=== PATIENT | male | born 1955 | race Caucasian/White ===

== ENCOUNTER 2018-02-06 19:58 | Observation (INO) ==
[2018-02-06] MEDS ORDERED: 0.9 % Sodium Chloride 1,000 ML IVC ONE (20:22)
[2018-02-06 21:10] LABS: Basophils # 0.1 K/mcL (0.0-0.2); Basophils % 0.5 %; Eosinophils # 0.2 K/mcL (0.0-0.6); Eosinophils % 1.3 %; Hematocrit 39.3 % (37.5-50.1); Hemoglobin 12.8 g/dL (12.9-16.9); Immature Granulocytes % 0.6 % (0-4); Lymphocytes # 3.3 K/mcL (0.6-4.6); Lymphocytes % 22.9 %; Mean Corpuscular HGB Conc 32.6 g/dL (31.6-35.5); Mean Corpuscular Hemoglobin 29.4 pg (28.0-33.3); Mean Corpuscular Volume 90.3 fL (83.0-100.0); Mean Platelet Volume 9.1 fL (9.4-12.4); Monocytes # 0.8 K/mcL (0.0-1.3); Monocytes % 5.5 %; Neutrophils # 9.8 K/mcL (1.6-8.9); Platelet Count 684 K/mcL (140-400); Red Blood Count 4.35 M/mcL (4.19-5.50); Red Cell Distribution Width 16.4 % (11.5-14.5); Segmented Neutrophils % 69.2 %
--- NOTE | 2018-02-06 21:23 | Emergency Department Note ---
Disposition Clinical Impression: Generalized weakness Pneumonia Qualifiers: Pneumonia type: due to unspecified organism Laterality: unspecified laterality Lung location: unspecified part of lung Qualified Code(s): J18.9 - Pneumonia, unspecified organism Disposition: Admitted As Inpatient Condition: Fair Time of Disposition: 12:04 Weakness HPI - General Chief complaint: ED Weakness Stated complaint: weakness Time Seen by Provider: 02/06/18 20:21 Source: patient Mode of arrival: ambulatory Limitations: no limitations Nursing Notes Reviewed: Yes Vital Signs Reviewed: Yes - History of Present Illness HPI Narrative: Patient is a 62-year-old male who presents to [facility] ED with a chief complaint of generalized weakness. Patient was recently admitted and had a stroke. He had significant deficits including not being able to use his lower extremities. Apparently, patient was supposed to go to rehabilitation but refused and wanted to go home. They ended up releasing him home. His family states they cannot take care of him at home. He has been bedbound ever since he has gone home. Home health so they cannot do anything with either. states she finally convinced him to come back to the hospital. Pt Subjective Complaint: generalized weakness/fatigue Onset (ago): hour(s) Duration: constant Location: LLE, RLE Migration: none Pain Severity: severe Pain Scale: 8 Improves with: none Worsens with: none Associated symptoms: Denies: chest pain, dysuria, headaches, nausea/vomiting, shortness of breath - Related Data Home Medications Medication Instructions Recorded Confirmed Amitriptyline [Elavil] 75 mg PO HS 01/25/18 02/06/18 Aspirin Enteric Coated [Aspirin EC] 81 mg PO DAILY 01/25/18 02/06/18 Buprenorphine HCl/Naloxone HCl 1.5 each SL DAILY 01/25/18 02/06/18 [Suboxone 8 mg-2 mg Sl Film] Gabapentin [Neurontin] 800 mg PO TID 01/25/18 02/06/18 Glycopyrrolate/Formoterol Fum 1 puff IH DAILY 01/25/18 02/06/18 [Bevespi Aerosphere Inhaler] Metformin HCl [Glucophage] 1,000 mg PO BID 01/25/18 02/06/18 Tizanidine HCl 4 mg PO TID 01/25/18 02/06/18 Previous Rx's Medication Instructions Recorded Doxycycline 100 mg PO BID #28 capsule 01/31/18 Allergies Allergy/AdvReac Type Severity Reaction Status Date / Time No Known Allergies Allergy Verified 02/06/18 21:47 All systems ED: reviewed and negative except as stated. Past Medical History - Past Medical History Attestation: Yes The following information was validated with the patient. Source: patient Medical history: Reports: COPD, diabetes, hyperlipidemia, hypertension Surgical history: Reports: orthopedic, other Psychiatric history: Reports: no psych history - Social History Smoking Status: Current every day smoker Smokeless Tobacco Status: No Alcohol use: Reports: heavy Drug use: Reports: opiates, methamphetamine, other Physical Exam - General Limitations: no limitations General appearance: alert, in no apparent distress - Head Head exam: atraumatic, normocephalic, normal inspection - Eye Eye exam: Present: normal appearance, PERRL, EOMI - ENT ENT exam: normal exam, normal oropharynx, mucous membranes moist - Neck Neck exam: Present: normal inspection, full ROM, trachea midline - Chest Chest inspection: Present: normal inspection, symmetric chest wall rise - Respiratory Respiratory exam: Present: normal lung sounds bilaterally - Cardiovascular Cardiovascular exam: Present: regular rate, normal rhythm, normal heart sounds - Abdominal Exam Abdominal exam: Present: soft, Non-Tender. Absent: tenderness, distention, guarding, rebound, rigidity - Extremities Exam Extremities exam: Present: normal inspection, full ROM. Absent: tenderness, pedal edema - Back Exam Back exam: Present: normal inspection, full ROM. Absent: tenderness - Neurological Exam Neurological exam: Present: alert, oriented X3 - Psychiatric Psychiatric exam: Present: normal affect, normal mood - Skin Skin exam: Present: warm, dry, intact, normal color Course Course Narrative: Patient seen and examined. Generalized weakness especially in the bilateral lower extremities. He has muscular strength on exam of 1 out of 5. Patient was recently admitted for CVA and was told he would need rehabilitation. However he wanted to go home so they discharged him home. Family has not been able to care of him. He will need placement. Basic lab work and CT of the head ordered to evaluate for any worsening strokes. - Reevaluation(s) Reevaluation #1: Patient does have a leukocytosis of 14. His x-ray shows signs of a possible pneumonia. We will go ahead and cover with a dose of Levaquin. Lab work, CT scan otherwise unremarkable. Patient admitted to the hospitalists for generalized weakness and placement. Time: 12:02 Vital Signs Temperature 97.4 F L 02/06/18 20:00 Pulse Rate 111 02/06/18 20:00 Respiratory Rate 18 02/06/18 20:00 Blood Pressure 114/70 02/06/18 20:00 O2 Sat by Pulse Oximetry 97 02/06/18 20:00 Temperature 98.9 F 02/07/18 03:56 Pulse Rate 99 02/07/18 03:56 Respiratory Rate 16 02/07/18 03:56 Blood Pressure 129/81 02/07/18 03:56 O2 Sat by Pulse Oximetry 92 02/07/18 03:56 Oxygen Delivery Oxygen Delivery Room Air Weakness - Medical Records Medical records reviewed: Yes I reviewed the patient's medical records. - Lab Data Lab results reviewed: Yes I reviewed the patient's lab results. Result diagrams: 02/07/18 02:20 02/07/18 02:20 Lab Results 02/06/18 02/06/18 02/06/18 Range/Units 20:19 20:56 20:56 WBC 14.2 H (4.3-11.1) K/mcL RBC 4.35 (4.19-5.50) M/mcL Hgb 12.8 L (12.9-16.9) g/dL Hct 39.3 (37.5-50.1) % MCV 90.3 (83.0-100.0) fL MCH 29.4 (28.0-33.3) pg MCHC 32.6 (31.6-35.5) g/dL RDW 16.4 H (11.5-14.5) % Plt Count 684 H (140-400) K/mcL MPV 9.1 L (9.4-12.4) fL Immature Gran % 0.6 (0-4) % Seg Neutrophils % 69.2 % Lymphocytes % 22.9 % Monocytes % 5.5 % Eosinophils % 1.3 % Basophils % 0.5 % Neutrophils # 9.8 H (1.6-8.9) K/mcL Lymphocytes # 3.3 (0.6-4.6) K/mcL Monocytes # 0.8 (0.0-1.3) K/mcL Eosinophils # 0.2 (0.0-0.6) K/mcL Basophils # 0.1 (0.0-0.2) K/mcL Sodium 132 L (136-145) mEq/L Potassium 3.7 (3.5-5.1) mEq/L Chloride 99 (98-107) mEq/L Carbon Dioxide 25 (23-29) mEq/L BUN 11 (8-23) mg/dL Creatinine 0.69 L (0.70-1.30) mg/dL Est GFR ( Amer) > 60 (> 60) Est GFR (Non-Af Amer) > 60 (> 60) BUN/Creatinine Ratio 16 (6-26) Glucose 152 H (70-105) mg/dL POC Glucose 157 H (70-99) mg/dL Calculated Osmolality 276 L (280-300) Calcium 9.4 (8.6-10.3) mg/dL Total Bilirubin 0.7 (0.3-1.0) mg/dL AST 41 H (13-39) Units/L ALT 44 (7-52) Units/L Alkaline Phosphatase 219 H (34-104) Units/L Troponin I < 0.03 (< 0.04) ng/mL Serum Total Protein 8.0 (6.4-8.9) g/dL Albumin 2.8 L (3.5-5.7) g/dL Globulin 5.2 H (2.4-3.5) g/dL Albumin/Globulin Ratio 0.5 L (1.1-2.2) Urine Color (Yellow) Urine Clarity (Clear) Urine pH (5.0-8.0) pH Units Ur Specific [place] (1.010-1.025) Urine Protein (Neg-Trace) mg/dL Urine Glucose (UA) (Normal) mg/dL Urine Ketones (Negative) mg/dL Urine Blood (Negative) Urine Nitrite (Negative) Urine Bilirubin (Negative) Urine Urobilinogen (Normal) mg/dL Ur Leukocyte Esterase (Negative) Ur Culture Indicated? (NO) 02/06/18 Range/Units 21:27 WBC (4.3-11.1) K/mcL RBC (4.19-5.50) M/mcL Hgb (12.9-16.9) g/dL Hct (37.5-50.1) % MCV (83.0-100.0) fL MCH (28.0-33.3) pg MCHC (31.6-35.5) g/dL RDW (11.5-14.5) % Plt Count (140-400) K/mcL MPV (9.4-12.4) fL Immature Gran % (0-4) % Seg Neutrophils % % Lymphocytes % % Monocytes % % Eosinophils % % Basophils % % Neutrophils # (1.6-8.9) K/mcL Lymphocytes # (0.6-4.6) K/mcL Monocytes # (0.0-1.3) K/mcL Eosinophils # (0.0-0.6) K/mcL Basophils # (0.0-0.2) K/mcL Sodium (136-145) mEq/L Potassium (3.5-5.1) mEq/L Chloride (98-107) mEq/L Carbon Dioxide (23-29) mEq/L BUN (8-23) mg/dL Creatinine (0.70-1.30) mg/dL Est GFR ( Amer) (> 60) Est GFR (Non-Af Amer) (> 60) BUN/Creatinine Ratio (6-26) Glucose (70-105) mg/dL POC Glucose (70-99) mg/dL Calculated Osmolality (280-300) Calcium (8.6-10.3) mg/dL Total Bilirubin (0.3-1.0) mg/dL AST (13-39) Units/L ALT (7-52) Units/L Alkaline Phosphatase (34-104) Units/L Troponin I (< 0.04) ng/mL Serum Total Protein (6.4-8.9) g/dL Albumin (3.5-5.7) g/dL Globulin (2.4-3.5) g/dL Albumin/Globulin Ratio (1.1-2.2) Urine Color Dark Yellow (Yellow) Urine Clarity Clear (Clear) Urine pH 6.5 (5.0-8.0) pH Units Ur Specific [place] 1.015 (1.010-1.025) Urine Protein Negative (Neg-Trace) mg/dL Urine Glucose (UA) Normal (Normal) mg/dL Urine Ketones Negative (Negative) mg/dL Urine Blood Negative (Negative) Urine Nitrite Negative (Negative) Urine Bilirubin Small H (Negative) Urine Urobilinogen 2.0 H (Normal) mg/dL Ur Leukocyte Esterase Negative (Negative) Ur Culture Indicated? NO (NO) - Radiology Data Radiology results reviewed: Yes I reviewed the patient's radiology results. Chest X-Ray 02/06/18 20:22 IMPRESSION: Perihilar and ground-glass airspace opacification in the right lower lung zone. Pattern may represent developing pneumonia or asymmetric edema. D/ / Forrest Ford MD / Forrest Ford MD Interpreting Provider: Forrest Ford MD Head CT 02/06/18 20:23 IMPRESSION: No significant change the appearance of brain since the prior study 01/25/2018 showing low-attenuation within the left internal capsule extending into the left tello radiata, possibly representing acute to subacute infarct. No acute hemorrhage. Right maxillary sinus disease including fluid as above. Correlation for acute sinusitis is recommended. D/ / Eleonora Pryor Cha, MD / Eleonora Pryor Cha, MD Interpreting Provider: Eleonora Pryor Cha, MD Attestation Statement - Attestation Attestation: I examined this patient and my medical decision-making was reviewed with the Resident Physician. I agree with the documented findings, disposition and treatment plan as described except to the extent set forth below. Recent stroke , possible pneumonia, start Levaquin, patient be admitted for further evaluation of weakness in the setting of possible infectious etiology as well as recent stroke.
[2018-02-06 21:32] LABS: Troponin I < 0.03 ng/mL (< 0.04)
[2018-02-06 21:33] LABS: Alanine Aminotransferase 44 Units/L (7-52); Albumin 2.8 g/dL (3.5-5.7); Albumin/Globulin Ratio 0.5 (1.1-2.2); Alkaline Phosphatase 219 Units/L (34-104); Aspartate Amino Transferase 41 Units/L (13-39); BUN/Creatinine Ratio 16 (6-26); Bilirubin,Total 0.7 mg/dL (0.3-1.0); Blood Urea Nitrogen 11 mg/dL (8-23); Calcium 9.4 mg/dL (8.6-10.3); Carbon Dioxide 25 mEq/L (23-29); Chloride 99 mEq/L (98-107); Globulin 5.2 g/dL (2.4-3.5); Glucose 152 mg/dL (70-105); Osmolality,Calculated 276 (280-300); Potassium 3.7 mEq/L (3.5-5.1); Sodium 132 mEq/L (136-145); eGFR For African Americans > 60 (> 60); eGFR For Non-African Americans > 60 (> 60)
[2018-02-06] MEDS ORDERED: Levofloxacin 750 MG/150 ML 750 MG/150 ML BAG IVPB ONE (21:36)
[2018-02-06 21:37] LABS: Bilirubin,Urine Small (Negative); Blood,Urine Negative (Negative); Clarity,Urine Clear (Clear); Color,Urine Dark Yellow (Yellow); Glucose,Urine (UA) Normal (Normal); Ketones,Urine Negative (Negative); Leukocyte Esterase,Urine Negative (Negative); Nitrite,Urine Negative (Negative); PH,Urine 6.5 pH Units (5.0-8.0); Protein,Urine Negative (Neg-Trace); Specific Gravity,Urine 1.015 (1.010-1.025)
--- NOTE | 2018-02-07 01:51 | Internal Med History&Physical ---
Date of Encounter: 02/07/18 Internal Medicine - H&P: HPI History of present illness: Mr. Rizzo is a 62 year old male presents to [facility] ED with a chief complaint of generalized weakness. Patient was recently admitted and had a stroke. He had significant deficits including not being able to use his lower extremities. Apparently, patient was supposed to go to rehabilitation but refused and wanted to go home. They ended up releasing him home. His family states they cannot take care of him at home. He has been bedbound ever since he has gone home. Home health so they cannot do anything with either. states she finally convinced him to come back to the hospital. Past Med Surg Social Fam HX - Past Medical History Medical history: COPD, diabetes, hyperlipidemia, hypertension Additional medical history: chronic back pain Psychiatric history: no psych history - Past Surgical History Surgical History: orthopedic, other - Social History Smoking Status: Current every day smoker Smokeless Tobacco Status: No Alcohol use: heavy Drug use: opiates, methamphetamine, other Internal Medicine - H&P: Meds Amitriptyline [Elavil] 75 mg PO HS 01/25/18 [History] Aspirin Enteric Coated [Aspirin EC] 81 mg PO DAILY 01/25/18 [History] Buprenorphine HCl/Naloxone HCl [Suboxone 8 mg-2 mg Sl Film] 1.5 each SL DAILY [History] Gabapentin [Neurontin] 800 mg PO TID 01/25/18 [History] Glycopyrrolate/Formoterol Fum [Bevespi Aerosphere Inhaler] 1 puff IH DAILY 01/25 [History] Metformin HCl [Glucophage] 1,000 mg PO BID 01/25/18 [History] Tizanidine HCl 4 mg PO TID 01/25/18 [History] Doxycycline 100 mg PO BID #28 capsule 01/31/18 [Rx] 3 Allergy/AdvReac Type Severity Reaction Status Date / Time No Known Allergies Allergy Verified 02/06/18 21:47 All Systems PM: A 10-system review of systems was performed and is negative for pertinent findings except as documented above in the HPI. - Constitutional Vitals: Temp Pulse Resp BP Pulse Ox 99.0 F 113 16 126/85 90 02/07/18 00:56 02/07/18 00:56 02/07/18 00:56 02/07/18 00:56 02/07/18 00:56 Internal Med - H&P Results - Labs CBC & Chem 7: 02/07/18 02:20 02/07/18 02:20 - Assessment and plan (1) Debility Current Visit: No Status: Acute Assessment and plan: PT, PT consult (2) DVT prophylaxis Current Visit: No Status: Acute - Time Spent With Patient Total time spent is greater than 50% in coordination of care (as documented) at patient's floor/unit and/or counseling patient:
[2018-02-07] MEDS ORDERED: Naloxone 0.4 MG/ML INJ IVP PRN (02:04)
[2018-02-07 02:30] LABS: Basophils # 0.1 K/mcL (0.0-0.2); Basophils % 0.5 %; Eosinophils # 0.2 K/mcL (0.0-0.6); Eosinophils % 1.6 %; Hematocrit 36.1 % (37.5-50.1); Hemoglobin 11.7 g/dL (12.9-16.9); Immature Granulocytes % 0.5 % (0-4); Immature Platelets 1.5 % (1.1-6.1); Lymphocytes # 3.2 K/mcL (0.6-4.6); Mean Corpuscular HGB Conc 32.4 g/dL (31.6-35.5); Mean Corpuscular Hemoglobin 28.6 pg (28.0-33.3); Mean Corpuscular Volume 88.3 fL (83.0-100.0); Mean Platelet Volume 8.9 fL (9.4-12.4); Monocytes # 0.7 K/mcL (0.0-1.3); Monocytes % 6.7 %; Neutrophils # 6.8 K/mcL (1.6-8.9); Platelet Count 738 K/mcL (140-400); Red Blood Count 4.09 M/mcL (4.19-5.50); Red Cell Distribution Width 16.3 % (11.5-14.5); Segmented Neutrophils % 61.7 %
[2018-02-07 02:46] LABS: INR 1.3; Prothrombin Time 13.6 Seconds (9.4-12.1)
[2018-02-07 02:48] LABS: Activated Partial Thrombo Time 36.1 Seconds (26.0-36.0)
[2018-02-07 02:54] LABS: Alanine Aminotransferase 37 Units/L (7-52); Albumin 2.6 g/dL (3.5-5.7); Albumin/Globulin Ratio 0.6 (1.1-2.2); Alkaline Phosphatase 188 Units/L (34-104); Aspartate Amino Transferase 37 Units/L (13-39); BUN/Creatinine Ratio 15 (6-26); Bilirubin,Total 0.8 mg/dL (0.3-1.0); Blood Urea Nitrogen 9 mg/dL (8-23); Carbon Dioxide 24 mEq/L (23-29); Chloride 103 mEq/L (98-107); Chol/HDL Ratio 5.2 (0-4.9); Cholesterol 99 mg/dL (< 200); Globulin 4.7 g/dL (2.4-3.5); Glucose 115 mg/dL (70-105); HDL Cholesterol 19 mg/dL (40-59); LDL Cholesterol,Calculated 63 mg/dL (0-99); Magnesium 1.6 mg/dL (1.6-2.6); Osmolality,Calculated 276 (280-300); Phosphorous 3.8 mg/dL (2.7-4.5); Potassium 3.6 mEq/L (3.5-5.1); Sodium 133 mEq/L (136-145); Total Protein 7.3 g/dL (6.4-8.9); Triglycerides 83 mg/dL (< 150); eGFR For African Americans > 60 (> 60); eGFR For Non-African Americans > 60 (> 60)
[2018-02-07] MEDS ORDERED: *HR* HYDROcodone/Acet 5/325 mg TABLET PO PRN (03:03)
[2018-02-07 06:30] LABS: Bilirubin,Urine Negative (Negative); Blood,Urine Small (Negative); Clarity,Urine Clear (Clear); Color,Urine Yellow (Yellow); Glucose,Urine (UA) Normal (Normal); Ketones,Urine Negative (Negative); Leukocyte Esterase,Urine Trace (Negative); Nitrite,Urine Negative (Negative); Protein,Urine Trace mg/dL (Neg-Trace); Specific Gravity,Urine 1.016 (1.010-1.025); Urobilinogen,Urine Normal (Normal)
[2018-02-07 06:33] LABS: Bacteria,Urine None Seen per hpf (None-Few); Hyaline Casts,Urine None Seen per lpf (None-Few); Squamous Epithelial Cell,Urine Many per lpf (None-Few)
[2018-02-07] MEDS: Gabapentin 400 MG CAPSULE PO SCH ×3 (08:49→20:48)
[2018-02-07] MEDS: tiZANidine 4 MG TABLET PO SCH ×3 (08:49→20:39)
[2018-02-07] MEDS: Doxycycline 100 MG CAPSULE PO SCH ×2 (08:49→20:39)
[2018-02-07] MEDS: Aspirin Enteric Coated 81 MG Tablet PO SCH (08:49)
[2018-02-07] MEDS: *HR* Metformin 500 MG TABLET PO SCH ×2 (08:50→16:50)
[2018-02-07] MEDS ORDERED: *HR* Metformin 500 MG TABLET PO SCH (09:00)
[2018-02-07] MEDS ORDERED: Suboxone 8 Mg-2 Mg SL SL SCH (09:00)
[2018-02-07] MEDS ORDERED: GLYCOPYRROLATE IH SCH (09:00)
[2018-02-07] MEDS ORDERED: FORMOTEROL IH SCH (09:00)
--- NOTE | 2018-02-07 11:11 | Internal Med Progress Note ---
Date of Encounter: 02/07/18 Time of Encounter: 11:10 - Assessment and plan (1) DVT prophylaxis Current Visit: Yes Status: Acute Assessment and plan: SQ heparin (2) Debility Current Visit: Yes Status: Acute Assessment and plan: PT, OT consult (3) History of MRSA infection Current Visit: Yes Status: Acute Assessment and plan: continue doxycycline po (4) COPD (chronic obstructive pulmonary disease) Current Visit: Yes Status: Chronic Assessment and plan: Not in exacerbation Duoneb prn Qualifiers: COPD type: unspecified COPD Qualified Code(s): J44.9 - Chronic obstructive pulmonary disease, unspecified (5) Diabetes mellitus Current Visit: Yes Status: Chronic Assessment and plan: A1C 6.4 % 01/2018 Continue Metformin Continue sliding scale FS ACHS ADA diet Qualifiers: Diabetes mellitus type: type 2 Diabetes mellitus custodial insulin use: without custodial use Diabetes mellitus complication status: with unspecified complications Qualified Code(s): E11.8 - Type 2 diabetes mellitus with unspecified complications (6) Tobacco abuse Current Visit: Yes Status: Chronic Assessment and plan: encourage cessation NRT prn (7) Urinary retention Current Visit: Yes Status: Acute Assessment and plan: Continue Redmond Attempt voiding trial prior to discharge - Time Spent With Patient Total time spent is greater than 50% in coordination of care (as documented) at patient's floor/unit and/or counseling patient: - Subjective Interval history: Patient seen and examined at bedside He is physically deconditioned and family cannot take care of him at home Awaiting PTOT eval He seems to have had urinary retention as patient reports he was unable to pee at home and had a Redmond placed in the ER He denies any new complains - Constitutional Vitals: Temp Pulse Resp BP Pulse Ox 98.2 F 87 18 132/79 97 02/07/18 07:30 02/07/18 07:30 02/07/18 07:30 02/07/18 07:30 02/07/18 07:30 General appearance: Present: disheveled, A&O X 3, no acute distress - Head Head exam: Present: atraumatic, normocephalic - Eye Eye exam: Present: PERRL, conjuntiva pink, sclera anicteric Pupils: Present: PERRL - Neck Neck exam general surgery: Present: supple, trachea midline. Absent: lymphadenopathy - Respiratory Respiratory exam: Present: CTAB. Absent: accessory muscle use, rales, rhonchi, wheezes - Cardiovascular Cardiovascular exam: Present: RRR, +S1, +S2. Absent: diastolic murmur, gallop, rubs, systolic murmur - GI/Abdominal GI/Abdominal exam: Present: normal bowel sounds, soft, no peritoneal signs. Absent: distended, tenderness - Additional comments: Redmond draining clear urine - Extremities Exam Extremities exam: Present: warm, radial pulses palpable and symmetrical. Absent : calf tenderness, cyanotic, pedal edema - Neurological Exam Neurological exam: Present: alert, CN II-XII intact, oriented X3, no focal deficits. Absent: pronater drift, facial droop, speech deficit - Skin Skin exam: Present: dry, intact Internal Medicine: Result - Labs CBC & Chem 7: 02/07/18 02:20 02/07/18 02:20 Labs: Short CBC 02/07/18 Range/Units 02:20 WBC 11.0 (4.3-11.1) K/mcL Hgb 11.7 L (12.9-16.9) g/dL Hct 36.1 L (37.5-50.1) % Plt Count 738 H (140-400) K/mcL Neutrophils # 6.8 (1.6-8.9) K/mcL BMP 02/07/18 02:20 Sodium 133 L Potassium 3.6 Chloride 103 Carbon Dioxide 24 BUN 9 Creatinine 0.60 L Glucose 115 H Calcium 9.0 Liver Function 02/07/18 Range/Units 02:20 Total Bilirubin 0.8 (0.3-1.0) mg/dL AST 37 (13-39) Units/L ALT 37 (7-52) Units/L Alkaline Phosphatase 188 H (34-104) Units/L Albumin 2.6 L (3.5-5.7) g/dL Urine 02/07/18 Range/Units 06:25 Urine Color Yellow (Yellow) Urine Clarity Clear (Clear) Urine pH 6.0 (5.0-8.0) pH Units Ur Specific [place] 1.016 (1.010-1.025) Urine Protein Trace (Neg-Trace) mg/dL Urine Glucose (UA) Normal (Normal) mg/dL - ABG Interpretation ABG results: PT/INR, D-dimer PT 13.6 Seconds (9.4-12.1) H 02/07/18 02:20 Consult Discharge Plan - Plan Referrals: Gerard Srivastava MD [Primary Care Provider] -
[2018-02-07] MEDS ORDERED: D5% in Water 1,000 ML IVC PRN (14:54)
[2018-02-07] MEDS ORDERED: *HR* Dextrose 50 % in Water (Syg) 50 ML SYRINGE IVP PRN (14:54)
[2018-02-07] MEDS ORDERED: Dextrose Gel 15 GM/37.5 ML TUBE PO PRN ×2 (14:54)
[2018-02-07] MEDS ORDERED: Albuterol 2.5 MG/3 ML NEBULIZER IH SCH (16:00)
--- NOTE | 2018-02-07 16:24 | Electrocardiograph Report ---
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
[2018-02-07] MEDS: Insulin LISPRO 300 UNITS/3 ML VIAL SQ SCH ×2 (16:45→20:55)
[2018-02-07] MEDS: *HR* Heparin 5,000 UNIT/ML VIAL SQ SCH (16:51)
[2018-02-08] MEDS: Acetaminophen 325 MG TABLET PO PRN (00:44)
[2018-02-08] MEDS: *HR* Heparin 5,000 UNIT/ML VIAL SQ SCH ×2 (05:33→17:15)
[2018-02-08] MEDS ORDERED: *HR* Buprenorphine HCl 8 MG TAB.SUBL SL SCH (09:00)
[2018-02-08] MEDS: Insulin LISPRO 300 UNITS/3 ML VIAL SQ SCH ×4 (09:10→20:37)
[2018-02-08] MEDS: Doxycycline 100 MG CAPSULE PO SCH ×2 (09:10→20:57)
[2018-02-08] MEDS: Aspirin Enteric Coated 81 MG Tablet PO SCH (09:10)
[2018-02-08] MEDS: *HR* Metformin 500 MG TABLET PO SCH ×2 (09:11→17:15)
[2018-02-08] MEDS: Gabapentin 400 MG CAPSULE PO SCH ×3 (09:11→20:57)
[2018-02-08] MEDS: tiZANidine 4 MG TABLET PO SCH ×3 (09:11→20:57)
[2018-02-08] MEDS ORDERED: Melatonin 3 MG TABLET PO PRN (10:44)
[2018-02-08] MEDS: Tiotropium 18 MCG inhalation IH SCH (10:49)
--- NOTE | 2018-02-08 11:44 | Internal Med Progress Note ---
Date of Encounter: 02/08/18 Time of Encounter: 11:00 - Assessment and plan (1) DVT prophylaxis Current Visit: Yes Status: Acute Assessment and plan: SQ heparin (2) Debility Current Visit: Yes Status: Chronic Assessment and plan: PT, OT consulted, for SNF/ECF (3) History of MRSA infection Current Visit: Yes Status: Acute Assessment and plan: continue doxycycline po (4) COPD (chronic obstructive pulmonary disease) Current Visit: Yes Status: Chronic Assessment and plan: Not in exacerbation Duoneb prn Qualifiers: COPD type: unspecified COPD Qualified Code(s): J44.9 - Chronic obstructive pulmonary disease, unspecified (5) Diabetes mellitus Current Visit: Yes Status: Chronic Assessment and plan: A1C 6.4 % 01/2018 Continue Metformin Continue sliding scale FS ACHS ADA diet Qualifiers: Diabetes mellitus type: type 2 Diabetes mellitus 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 insulin 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: without 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 Diabetes mellitus complication status: with unspecified complications Qualified Code(s): E11.8 - Type 2 diabetes mellitus with unspecified complications (6) Tobacco abuse Current Visit: Yes Status: Chronic Assessment and plan: encourage cessation NRT prn (7) Urinary retention Current Visit: Yes Status: Acute Assessment and plan: Continue Redmond Attempt voiding trial prior to discharge - Time Spent With Patient Total time spent is greater than 50% in coordination of care (as documented) at patient's floor/unit and/or counseling patient: - Subjective Interval history: Patient seen and examined at bedside He is physically deconditioned and family cannot take care of him at home PTOT scout noted-for swing bed, SW aware He seems to have had urinary retention as patient reports he was unable to pee at home and had a Redmond placed in the ER He denies any new complains - Constitutional Vitals: Temp Pulse Resp BP Pulse Ox 98.4 F 88 19 109/71 93 02/08/18 11:25 02/08/18 11:25 02/08/18 11:25 02/08/18 11:25 02/08/18 11:25 General appearance: Present: disheveled, A&O X 3, no acute distress - Head Head exam: Present: atraumatic, normocephalic - Eye Eye exam: Present: PERRL, conjuntiva pink, sclera anicteric Pupils: Present: PERRL - Neck Neck exam general surgery: Present: supple, trachea midline. Absent: lymphadenopathy - Respiratory Respiratory exam: Present: CTAB. Absent: accessory muscle use, rales, rhonchi, wheezes - Cardiovascular Cardiovascular exam: Present: RRR, +S1, +S2. Absent: diastolic murmur, gallop, rubs, systolic murmur - GI/Abdominal GI/Abdominal exam: Present: normal bowel sounds, soft, no peritoneal signs. Absent: distended, tenderness - Extremities Exam Extremities exam: Present: warm, radial pulses palpable and symmetrical. Absent : calf tenderness, cyanotic, pedal edema - Neurological Exam Neurological exam: Present: alert, CN II-XII intact, oriented X3, no focal deficits. Absent: pronater drift, facial droop, speech deficit - Skin Skin exam: Present: dry, intact Internal Medicine: Result - Labs CBC & Chem 7: 02/07/18 02:20 02/07/18 02:20 - ABG Interpretation ABG results: PT/INR, D-dimer PT 13.6 Seconds (9.4-12.1) H 02/07/18 02:20 Consult Discharge Plan - Plan Referrals: Gerard Srivastava MD [Primary Care Provider] - (patient will go to swing bed...)
[2018-02-09] MEDS: *HR* Heparin 5,000 UNIT/ML VIAL SQ SCH ×2 (06:11→18:05)
[2018-02-09] MEDS: Tiotropium 18 MCG inhalation IH SCH (07:46)
[2018-02-09] MEDS: *HR* Metformin 500 MG TABLET PO SCH ×2 (09:52→18:04)
[2018-02-09] MEDS: Doxycycline 100 MG CAPSULE PO SCH ×2 (09:52→21:05)
[2018-02-09] MEDS: tiZANidine 4 MG TABLET PO SCH ×3 (09:52→21:05)
[2018-02-09] MEDS: Aspirin Enteric Coated 81 MG Tablet PO SCH (09:52)
[2018-02-09] MEDS: Gabapentin 400 MG CAPSULE PO SCH ×3 (09:52→21:05)
[2018-02-09] MEDS: *HR* Buprenorphine HCl 8 MG TAB.SUBL SL SCH (09:52)
[2018-02-09] MEDS: Insulin LISPRO 300 UNITS/3 ML VIAL SQ SCH ×4 (09:53→23:23)
--- NOTE | 2018-02-09 11:33 | Discharge Summary ---
- NOTES TO OUTPATIENT PROVIDER Notes to Outpatient Provider: No change in home medications. Continue doxycycline for 3 more days. Ensure follow up with pain physician as out- patient Date of Encounter: 02/10/18 Time of Encounter: 11:27 - Discharge Diagnosis (1) DVT prophylaxis Priority: Primary Status: Acute (2) Debility Priority: Primary Status: Chronic (3) History of MRSA infection Priority: Primary Status: Acute (4) COPD (chronic obstructive pulmonary disease) Priority: Secondary Status: Chronic Qualifiers: COPD type: unspecified COPD Qualified Code(s): J44.9 - Chronic obstructive pulmonary disease, unspecified (5) Diabetes mellitus Priority: Secondary Status: Chronic Qualifiers: Diabetes mellitus type: type 2 Diabetes mellitus detention insulin use: without termite renewal inspector use Diabetes mellitus complication status: with unspecified complications Qualified Code(s): E11.8 - Type 2 diabetes mellitus with unspecified complications (6) Tobacco abuse Priority: Secondary Status: Chronic (7) Urinary retention Priority: Primary Status: Acute Hospital course: Mr. Rizzo is a 62 year old male who presented to the ED with a chief complaint of generalized weakness. Patient was recently admitted and had a stroke with LUE weakness. He had significant deficits including not being able to use his lower extremities. Apparently, patient was supposed to go to rehabilitation but refused and wanted to go home. They ended up releasing him home. His family stated they cannot take care of him at home. He has been bedbound ever since he has gone home. Home health so they cannot do anything with either. states she finally convinced him to come back to the hospital. He has since being on observation awaiting placement he is hemodynamically stable he has a hx of MRSA PNA and is on Doxycycline, today is day 9 He is to complete at least 10 days of same He also has a hx of opiate dependence and is on suboxone, which has been substituted with subutex in-patient He developed urinary retention with catheterizaion in the ER, Catheter removed to attempt voiding trial Follow up with PCP Discharge discussed with: patient, family, nurse, social work Time spent discussing smoking cessation with patient: 3 to 10 minutes - Time Spent with Patient Total time spent providing and/or coordinating discharge services: Greater than 30 minutes - Discharge Medications Home Medications: Amitriptyline [Elavil] 75 mg PO HS 01/25/18 [History] Aspirin Enteric Coated [Aspirin EC] 81 mg PO DAILY 01/25/18 [History] Buprenorphine HCl/Naloxone HCl [Suboxone 8 mg-2 mg Sl Film] 1.5 each SL DAILY [History] Gabapentin [Neurontin] 800 mg PO TID 01/25/18 [History] Glycopyrrolate/Formoterol Fum [Bevespi Aerosphere Inhaler] 1 puff IH DAILY 01/25 [History] Metformin HCl [Glucophage] 1,000 mg PO BID 01/25/18 [History] Tizanidine HCl 4 mg PO TID 01/25/18 [History] Doxycycline 100 mg PO BID #28 capsule 01/31/18 [Rx] Allergies/Adverse Reactions: 3 Allergy/AdvReac Type Severity Reaction Status Date / Time No Known Allergies Allergy Verified 02/06/18 21:47 Date of admission: 02/06/18 23:47 Primary care physician: Gerard Srivastava, Consults: 02/07/18 06:38 Consult to Occupational Therapy [CONS] Routine Comment: Evaluate, develop and implement POC Reason for Consult: weekness Does patient have active BEDREST order?: No Is patient medically & hemodynamically stable?: No Patient assessed for mobility or mobilized this visit?: No Consult to Physical Therapy [CONS] Routine Comment: Evaluate, develop and implement POC Reason for Consult: weekness Does patient have active BEDREST order?: No Is patient medically & hemodynamically stable?: No Patient assessed for mobility or mobilized this visit?: No 02/08/18 07:55 Consult to Python Django Developer [CONS] Routine Reason for SW Consult: NEEDS SWING BED Discharging clinician: Jose M Fulton Anticipated date of discharge: 02/09/18 - Constitutional Vitals: Temp Pulse Resp BP Pulse Ox 98.6 F 83 16 115/77 96 02/09/18 07:51 02/09/18 07:51 02/09/18 07:51 02/09/18 07:51 02/09/18 07:51 General appearance: Present: cachectic, disheveled, A&O X 3, no acute distress - Head Head exam: Present: atraumatic, normocephalic - Eye Eye exam: Present: PERRL, conjuntiva pink, sclera anicteric Pupils: Present: PERRL - Neck Neck exam general surgery: Present: supple, trachea midline. Absent: lymphadenopathy - Respiratory Respiratory exam: Present: CTAB. Absent: accessory muscle use, rales, rhonchi, wheezes - Cardiovascular Cardiovascular exam: Present: RRR, +S1, +S2. Absent: diastolic murmur, gallop, rubs, systolic murmur - GI/Abdominal GI/Abdominal exam: Present: normal bowel sounds, soft, no peritoneal signs. Absent: distended, tenderness - Extremities Exam Extremities exam: Present: warm, radial pulses palpable and symmetrical. Absent : calf tenderness, cyanotic, pedal edema - Neurological Exam Neurological exam: Present: alert, CN II-XII intact, motor sensory deficit (LUE weakness), oriented X3. Absent: strengths equal and symetr throughout, pronater drift, facial droop, speech deficit - Skin Skin exam: Present: dry, intact - Patient Status Disposition: Transfer SNF Condition: Fair - Discharge Instructions Follow Up With: Gerard Srivastava MD [Primary Care Provider] - (patient will go to swing bed...) - Diet and Activity Activity: resume usual activities as tolerated Diet: low salt diet
--- NOTE | 2018-02-09 14:30 | Physician Discharge Referral ---
ExtendedCare Referral Info Transfer To: SNF Provider in Charge: Bandar Fulton Provider in Charge after Transfer: PCP Institutional Level of Care: Skilled - Diagnosis (1) DVT prophylaxis Priority: Primary Status: Acute (2) Debility Priority: Secondary Status: Chronic (3) History of MRSA infection Priority: Primary Status: Acute (4) COPD (chronic obstructive pulmonary disease) Priority: Secondary Status: Chronic (5) Diabetes mellitus Priority: Secondary Status: Chronic (6) Tobacco abuse Priority: Secondary Status: Chronic (7) Urinary retention Priority: Primary Status: Acute Prognosis: Fair Aware of Diagnosis: Patient, Family Aware of Prognosis: Patient, Family - Transfer Medications Home Medications: Amitriptyline [Elavil] 75 mg PO HS 01/25/18 [History] Aspirin Enteric Coated [Aspirin EC] 81 mg PO DAILY 01/25/18 [History] Buprenorphine HCl/Naloxone HCl [Suboxone 8 mg-2 mg Sl Film] 1.5 each SL DAILY [History] Gabapentin [Neurontin] 800 mg PO TID 01/25/18 [History] Glycopyrrolate/Formoterol Fum [Bevespi Aerosphere Inhaler] 1 puff IH DAILY 01/25 [History] Metformin HCl [Glucophage] 1,000 mg PO BID 01/25/18 [History] Tizanidine HCl 4 mg PO TID 01/25/18 [History] Doxycycline 100 mg PO BID #28 capsule 01/31/18 [Rx] Allergies/Adverse Reactions: 3 Allergy/AdvReac Type Severity Reaction Status Date / Time No Known Allergies Allergy Verified 02/06/18 21:47 - Respiratory Orders Smoking Cessation: Smoking cessation has been advised. For more information, call the [place] Tobacco Quit Line at 7-091-NDJN-NOW. - Advance Directives Code Status: Full Code - Mobility Orders Ambulate - Rehabiliation Orders Rehab Orders: Evaluation for Physical Therapy - Diet Orders No Concentrated Sweets, Cardiac CERTIFICATION: I certify that the transfer of the above named patient to an Extended Care Facility is necessary for the continuing treatment of the diagnosis listed. The above information is true and accurate reflection of patient's current condition. Confidential - Redisclosure prohibited without a patient's written consent.
[2018-02-09] MEDS: *HR* Buprenorphine HCl 2 MG SUBLINGUAL TABLET SL SCH (21:05)
[2018-02-10] MEDS: *HR* Heparin 5,000 UNIT/ML VIAL SQ SCH ×2 (06:07→17:01)
[2018-02-10] MEDS: *HR* Metformin 500 MG TABLET PO SCH ×2 (08:32→16:59)
[2018-02-10] MEDS: Doxycycline 100 MG CAPSULE PO SCH ×2 (08:32→20:28)
[2018-02-10] MEDS: Gabapentin 400 MG CAPSULE PO SCH ×3 (08:32→20:28)
[2018-02-10] MEDS: Aspirin Enteric Coated 81 MG Tablet PO SCH (08:33)
[2018-02-10] MEDS: tiZANidine 4 MG TABLET PO SCH ×3 (08:33→20:28)
[2018-02-10] MEDS: *HR* Buprenorphine HCl 8 MG TAB.SUBL SL SCH (08:35)
[2018-02-10] MEDS: Insulin LISPRO 300 UNITS/3 ML VIAL SQ SCH ×4 (08:35→20:43)
--- NOTE | 2018-02-10 10:48 | Internal Med Progress Note ---
Date of Encounter: 02/10/18 Time of Encounter: 10:48 - Assessment and plan (1) DVT prophylaxis Current Visit: Yes Status: Acute Assessment and plan: SQ heparin (2) Debility Current Visit: Yes Status: Chronic Assessment and plan: PT, OT consulted, for SNF/ECF (3) History of MRSA infection Current Visit: Yes Status: Acute Assessment and plan: continue doxycycline po, complete 10 days of therapy (4) COPD (chronic obstructive pulmonary disease) Current Visit: Yes Status: Chronic Assessment and plan: Not in exacerbation Duoneb prn Qualifiers: COPD type: unspecified COPD Qualified Code(s): J44.9 - Chronic obstructive pulmonary disease, unspecified (5) Diabetes mellitus Current Visit: Yes Status: Chronic Assessment and plan: A1C 6.4 % 01/2018 Continue Metformin Continue sliding scale FS ACHS ADA diet Qualifiers: Diabetes mellitus type: type 2 Diabetes mellitus longshore equipment operator insulin use: without longshore equipment operator use Diabetes mellitus complication status: with unspecified complications Qualified Code(s): E11.8 - Type 2 diabetes mellitus with unspecified complications (6) Tobacco abuse Current Visit: Yes Status: Chronic Assessment and plan: encourage cessation NRT prn (7) Urinary retention Current Visit: Yes Status: Acute Assessment and plan: continue durham, urology evaluation out-patient - Time Spent With Patient Total time spent is greater than 50% in coordination of care (as documented) at patient's floor/unit and/or counseling patient: - Subjective Interval history: Patient seen and examined at bedside He is physically deconditioned and family cannot take care of him at home PTOT eval noted-for swing bed, [facility] [place] catheter was removed 02/09 but had to be replaced due to urinary retention - Constitutional Vitals: Temp Pulse Resp BP Pulse Ox 98.2 F 90 16 112/76 92 02/10/18 07:10 02/10/18 07:10 02/10/18 07:10 02/10/18 07:10 02/10/18 07:10 General appearance: Present: cachectic, disheveled, A&O X 3, no acute distress - Head Head exam: Present: atraumatic, normocephalic - Eye Eye exam: Present: PERRL, conjuntiva pink, sclera anicteric Pupils: Present: PERRL - Neck Neck exam general surgery: Present: supple, trachea midline. Absent: lymphadenopathy - Respiratory Respiratory exam: Present: CTAB. Absent: accessory muscle use, rales, rhonchi, wheezes - Cardiovascular Cardiovascular exam: Present: RRR, +S1, +S2. Absent: diastolic murmur, gallop, rubs, systolic murmur - GI/Abdominal GI/Abdominal exam: Present: normal bowel sounds, soft, no peritoneal signs. Absent: distended, tenderness - Extremities Exam Extremities exam: Present: warm, radial pulses palpable and symmetrical. Absent : calf tenderness, cyanotic, pedal edema - Neurological Exam Neurological exam: Present: alert, CN II-XII intact, oriented X3, no focal deficits. Absent: pronater drift, facial droop, speech deficit - Skin Skin exam: Present: dry, intact Internal Medicine: Result - Labs CBC & Chem 7: 02/07/18 02:20 02/07/18 02:20 - ABG Interpretation ABG results: PT/INR, D-dimer PT 13.6 Seconds (9.4-12.1) H 02/07/18 02:20 Consult Discharge Plan - Plan Referrals: Gerard Srivastava MD [Primary Care Provider] - (patient will go to swing bed...)
[2018-02-10] MEDS: Tiotropium 18 MCG inhalation IH SCH (11:03)
[2018-02-10] MEDS: *HR* Buprenorphine HCl 2 MG SUBLINGUAL TABLET SL SCH (20:28)
[2018-02-11] MEDS: *HR* Heparin 5,000 UNIT/ML VIAL SQ SCH ×2 (06:16→16:45)
[2018-02-11] MEDS: *HR* Buprenorphine HCl 8 MG TAB.SUBL SL SCH (07:56)
[2018-02-11] MEDS: Gabapentin 400 MG CAPSULE PO SCH ×3 (07:56→21:05)
[2018-02-11] MEDS: Insulin LISPRO 300 UNITS/3 ML VIAL SQ SCH ×4 (07:56→21:05)
[2018-02-11] MEDS: *HR* Metformin 500 MG TABLET PO SCH ×2 (07:57→16:44)
[2018-02-11] MEDS: tiZANidine 4 MG TABLET PO SCH ×3 (07:57→21:05)
[2018-02-11] MEDS: Aspirin Enteric Coated 81 MG Tablet PO SCH (07:57)
--- NOTE | 2018-02-11 09:25 | Internal Med Progress Note ---
Date of Encounter: 02/11/18 Time of Encounter: 09:25 - Assessment and plan (1) DVT prophylaxis Current Visit: Yes Status: Acute Assessment and plan: SQ heparin (2) Debility Current Visit: Yes Status: Chronic Assessment and plan: PT, OT consulted, for SNF/ECF, fall precautions (3) History of MRSA infection Current Visit: Yes Status: Acute Assessment and plan: continue doxycycline po, completed 10 days of therapy (4) COPD (chronic obstructive pulmonary disease) Current Visit: Yes Status: Chronic Assessment and plan: Not in exacerbation Duoneb prn Qualifiers: COPD type: unspecified COPD Qualified Code(s): J44.9 - Chronic obstructive pulmonary disease, unspecified (5) Diabetes mellitus Current Visit: Yes Status: Chronic Assessment and plan: A1C 6.4 % 01/2018 Continue Metformin Continue sliding scale FS ACHS ADA diet Qualifiers: Diabetes mellitus type: type 2 Diabetes mellitus nursing home insulin use: without commercial sales specialist use Diabetes mellitus complication status: with unspecified complications Qualified Code(s): E11.8 - Type 2 diabetes mellitus with unspecified complications (6) Tobacco abuse Current Visit: Yes Status: Chronic Assessment and plan: encourage cessation NRT prn (7) Urinary retention Current Visit: Yes Status: Acute Assessment and plan: continue durham, urology evaluation out-patient (8) Seborrhea Current Visit: Yes Status: Acute Assessment and plan: ketononazole cream daily - Time Spent With Patient Total time spent is greater than 50% in coordination of care (as documented) at patient's floor/unit and/or counseling patient: - Subjective Interval history: Patient seen and examined at bedside He is physically deconditioned and family cannot take care of him at home PTOT scout noted-for swing bed, [facility] [place] catheter was removed 02/09 but had to be replaced due to urinary retention He has no new complains - Constitutional Vitals: Temp Pulse Resp BP Pulse Ox 98.4 F 98 17 122/80 93 02/11/18 07:40 02/11/18 07:40 02/11/18 07:40 02/11/18 07:40 02/11/18 07:40 General appearance: Present: cachectic, disheveled, A&O X 3, no acute distress - Head Head exam: Present: normal inspection Additional comments: seborrheic dermatitis on face - Eye Eye exam: Present: PERRL - Neck Neck exam general surgery: Present: supple, trachea midline. Absent: lymphadenopathy - Respiratory Respiratory exam: Present: CTAB. Absent: accessory muscle use, rales, rhonchi, wheezes - Cardiovascular Cardiovascular exam: Present: RRR, +S1, +S2. Absent: diastolic murmur, gallop, rubs, systolic murmur - GI/Abdominal GI/Abdominal exam: Present: normal bowel sounds, soft, no peritoneal signs. Absent: distended, tenderness - Extremities Exam Extremities exam: Present: warm, radial pulses palpable and symmetrical. Absent : calf tenderness, cyanotic, pedal edema - Neurological Exam Neurological exam: Present: alert, motor sensory deficit (LUE wekaness), oriented X3. Absent: pronater drift, facial droop, speech deficit - Skin Skin exam: Present: dry, intact Internal Medicine: Result - Labs CBC & Chem 7: 02/07/18 02:20 02/07/18 02:20 - ABG Interpretation ABG results: PT/INR, D-dimer PT 13.6 Seconds (9.4-12.1) H 02/07/18 02:20 Consult Discharge Plan - Plan Referrals: Gerard Srivastava MD [Primary Care Provider] - (patient will go to swing bed...)
[2018-02-11] MEDS: Ketoconazole 2% CRM 15 GM TUBE TP SCH (11:33)
[2018-02-11] MEDS: Tiotropium 18 MCG inhalation IH SCH (11:44)
[2018-02-11] MEDS: *HR* Buprenorphine HCl 2 MG SUBLINGUAL TABLET SL SCH (21:05)
[2018-02-12] MEDS: *HR* Heparin 5,000 UNIT/ML VIAL SQ SCH ×2 (05:21→17:07)
[2018-02-12 07:11] LABS: BUN/Creatinine Ratio 26 (6-26); Blood Urea Nitrogen 17 mg/dL (8-23); Calcium 10.3 mg/dL (8.6-10.3); Carbon Dioxide 21 mEq/L (23-29); Chloride 99 mEq/L (98-107); Glucose 157 mg/dL (70-105); Osmolality,Calculated 275 (280-300); Potassium 4.4 mEq/L (3.5-5.1); Sodium 130 mEq/L (136-145); eGFR For African Americans > 60 (> 60); eGFR For Non-African Americans > 60 (> 60)
[2018-02-12 07:22] LABS: Basophils % 0.4 %; Eosinophils # 0.9 K/mcL (0.0-0.6); Eosinophils % 8.8 %; Hemoglobin 12.9 g/dL (12.9-16.9); Immature Granulocytes % 0.6 % (0-4); Lymphocytes # 3.1 K/mcL (0.6-4.6); Lymphocytes % 28.8 %; Mean Corpuscular HGB Conc 33.1 g/dL (31.6-35.5); Mean Corpuscular Hemoglobin 29.3 pg (28.0-33.3); Mean Corpuscular Volume 88.6 fL (83.0-100.0); Mean Platelet Volume 9.2 fL (9.4-12.4); Neutrophils # 5.6 K/mcL (1.6-8.9); Platelet Count 537 K/mcL (140-400); Red Cell Distribution Width 15.2 % (11.5-14.5); Segmented Neutrophils % 52.4 %
[2018-02-12] MEDS: Tiotropium 18 MCG inhalation IH SCH (07:52)
[2018-02-12] MEDS: *HR* Metformin 500 MG TABLET PO SCH ×2 (08:48→16:33)
[2018-02-12] MEDS: Aspirin Enteric Coated 81 MG Tablet PO SCH (08:48)
[2018-02-12] MEDS: tiZANidine 4 MG TABLET PO SCH ×3 (08:48→21:01)
[2018-02-12] MEDS: Insulin LISPRO 300 UNITS/3 ML VIAL SQ SCH ×4 (08:49→21:01)
[2018-02-12] MEDS: *HR* Buprenorphine HCl 8 MG TAB.SUBL SL SCH (08:49)
[2018-02-12] MEDS: Gabapentin 400 MG CAPSULE PO SCH ×3 (08:52→21:01)
[2018-02-12] MEDS: Ketoconazole 2% CRM 15 GM TUBE TP SCH (08:54)
--- NOTE | 2018-02-12 12:18 | Internal Med Progress Note ---
Date of Encounter: 02/12/18 Time of Encounter: 12:18 - Assessment and plan (1) DVT prophylaxis Current Visit: Yes Status: Acute Assessment and plan: SQ heparin (2) Debility Current Visit: Yes Status: Chronic Assessment and plan: PT, OT consulted, for SNF/ECF, fall precautions (3) History of MRSA infection Current Visit: Yes Status: Acute Assessment and plan: continue doxycycline po, completed 10 days of therapy (4) COPD (chronic obstructive pulmonary disease) Current Visit: Yes Status: Chronic Assessment and plan: Not in exacerbation Duoneb prn Qualifiers: COPD type: unspecified COPD Qualified Code(s): J44.9 - Chronic obstructive pulmonary disease, unspecified (5) Diabetes mellitus Current Visit: Yes Status: Chronic Assessment and plan: A1C 6.4 % 01/2018 Continue Metformin Continue sliding scale FS ACHS ADA diet Qualifiers: Diabetes mellitus type: type 2 Diabetes mellitus mcfp insulin use: without watermelon inspector use Diabetes mellitus complication status: with unspecified complications Qualified Code(s): E11.8 - Type 2 diabetes mellitus with unspecified complications (6) Tobacco abuse Current Visit: Yes Status: Chronic Assessment and plan: encourage cessation NRT prn (7) Urinary retention Current Visit: Yes Status: Acute Assessment and plan: continue durham, urology evaluation out-patient (8) Seborrhea Current Visit: Yes Status: Acute Assessment and plan: ketononazole cream daily - Time Spent With Patient Total time spent is greater than 50% in coordination of care (as documented) at patient's floor/unit and/or counseling patient: - Subjective Interval history: Patient seen and examined at bedside No acute events Awaiting placement - Constitutional Vitals: Temp Pulse Resp BP Pulse Ox 97.9 F 84 16 104/69 93 02/12/18 07:38 02/12/18 07:38 02/12/18 07:53 02/12/18 07:38 02/12/18 07:53 General appearance: Present: cachectic, disheveled, A&O X 3, no acute distress - Head Head exam: Present: atraumatic, normocephalic - Eye Eye exam: Present: PERRL, conjuntiva pink, sclera anicteric Pupils: Present: PERRL Additional comments: seborrhea - Neck Neck exam general surgery: Present: supple, trachea midline. Absent: lymphadenopathy - Respiratory Respiratory exam: Present: CTAB. Absent: accessory muscle use, rales, rhonchi, wheezes - Cardiovascular Cardiovascular exam: Present: RRR, +S1, +S2. Absent: diastolic murmur, gallop, rubs, systolic murmur - GI/Abdominal GI/Abdominal exam: Present: normal bowel sounds, soft, no peritoneal signs. Absent: distended, tenderness - Extremities Exam Extremities exam: Present: warm, radial pulses palpable and symmetrical. Absent : calf tenderness, cyanotic, pedal edema - Neurological Exam Neurological exam: Present: alert, CN II-XII intact, oriented X3, no focal deficits. Absent: pronater drift, facial droop, speech deficit - Skin Skin exam: Present: dry, intact Internal Medicine: Result - Labs CBC & Chem 7: 02/12/18 07:06 02/12/18 06:25 Labs: Short CBC 02/12/18 Range/Units 07:06 WBC 10.7 (4.3-11.1) K/mcL Hgb 12.9 (12.9-16.9) g/dL Hct 39.0 (37.5-50.1) % Plt Count 537 H (140-400) K/mcL Neutrophils # 5.6 (1.6-8.9) K/mcL BMP 02/12/18 06:25 Sodium 130 L Potassium 4.4 Chloride 99 Carbon Dioxide 21 L BUN 17 Creatinine 0.65 L Glucose 157 H Calcium 10.3 - ABG Interpretation ABG results: PT/INR, D-dimer PT 13.6 Seconds (9.4-12.1) H 02/07/18 02:20 Consult Discharge Plan - Plan Referrals: Gerard Srivastava MD [Primary Care Provider] - (patient will go to swing bed...)
[2018-02-12] MEDS: *HR* Buprenorphine HCl 2 MG SUBLINGUAL TABLET SL SCH (21:02)
[2018-02-12] MEDS: Acetaminophen 325 MG TABLET PO PRN (21:31)
[2018-02-13] MEDS: *HR* Heparin 5,000 UNIT/ML VIAL SQ SCH ×2 (05:36→17:09)
[2018-02-13] MEDS: Insulin LISPRO 300 UNITS/3 ML VIAL SQ SCH ×4 (08:20→21:40)
[2018-02-13] MEDS: Ketoconazole 2% CRM 15 GM TUBE TP SCH (08:25)
[2018-02-13] MEDS: tiZANidine 4 MG TABLET PO SCH ×3 (08:26→21:42)
[2018-02-13] MEDS: Aspirin Enteric Coated 81 MG Tablet PO SCH (08:26)
[2018-02-13] MEDS: *HR* Metformin 500 MG TABLET PO SCH ×2 (08:26→17:09)
[2018-02-13] MEDS: *HR* Buprenorphine HCl 8 MG TAB.SUBL SL SCH (08:26)
[2018-02-13] MEDS: Gabapentin 400 MG CAPSULE PO SCH ×3 (08:26→21:42)
[2018-02-13] MEDS: Tiotropium 18 MCG inhalation IH SCH (10:11)
--- NOTE | 2018-02-13 11:03 | Internal Med Progress Note ---
Date of Encounter: 02/13/18 Time of Encounter: 11:03 - Assessment and plan (1) CVA (cerebral vascular accident) Current Visit: Yes Status: Acute Assessment and plan: Patient with acute versus subacute CVA post present on admission. Head CT on admission was for acute versus subacute infarct. Patient with left upper extremity residual weakness. Generalized deconditioning. On aspirin continue the same. Started on Lipitor. Echocardiogram done during admission in January 2018 unremarkable. Not repeated. Carotid imaging done recently unremarkable. Repeat head CT done today shows chronic microvascular changes without any acute infarcts. Qualifiers: CVA mechanism: unspecified Qualified Code(s): I63.9 - Cerebral infarction, unspecified (2) DVT prophylaxis Current Visit: Yes Status: Acute Assessment and plan: SQ heparin (3) Debility Current Visit: Yes Status: Chronic Assessment and plan: PT, OT consulted, for SNF/ECF, fall precautions (4) History of MRSA infection Current Visit: Yes Status: Acute Assessment and plan: Discontinued doxycycline po, patient has completed 10 days of therapy (5) COPD (chronic obstructive pulmonary disease) Current Visit: Yes Status: Chronic Assessment and plan: Not in exacerbation Duoneb prn Qualifiers: COPD type: unspecified COPD Qualified Code(s): J44.9 - Chronic obstructive pulmonary disease, unspecified (6) Diabetes mellitus Current Visit: Yes Status: Chronic Assessment and plan: A1C 6.4 % 01/2018 Continue Metformin Continue sliding scale FS ACHS ADA diet Qualifiers: Diabetes mellitus type: type 2 Diabetes mellitus 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 urology evaluation out-patient (9) Seborrhea Current Visit: Yes Status: Acute Assessment and plan: Continue ketoconazole. - Time Spent With Patient Total time spent is greater than 50% in coordination of care (as documented) at patient's floor/unit and/or counseling patient: - Subjective Interval history: Patient seen and examined at bedside No acute events Awaiting placement - Constitutional Vitals: Temp Pulse Resp BP Pulse Ox 97.9 F 87 18 102/70 91 02/13/18 07:05 02/13/18 07:05 02/13/18 10:13 02/13/18 07:05 02/13/18 10:13 General appearance: Present: cachectic, disheveled, A&O X 3, no acute distress - Head Head exam: Present: atraumatic, normocephalic - Eye Eye exam: Present: PERRL, conjuntiva pink, sclera anicteric Pupils: Present: PERRL - Neck Neck exam general surgery: Present: supple, trachea midline. Absent: lymphadenopathy - Respiratory Respiratory exam: Present: CTAB. Absent: accessory muscle use, rales, rhonchi, wheezes - Cardiovascular Cardiovascular exam: Present: RRR, +S1, +S2. Absent: diastolic murmur, gallop, rubs, systolic murmur - GI/Abdominal GI/Abdominal exam: Present: normal bowel sounds, soft, no peritoneal signs. Absent: distended, tenderness - Extremities Exam Extremities exam: Absent: pedal edema - Neurological Exam Neurological exam: Present: alert, motor sensory deficit (LUE weakness, power 1/ 5, RUE weakness, power at least 3/5), oriented X3 - Skin Skin exam: Present: dry, intact Internal Medicine: Result - Labs CBC & Chem 7: 02/12/18 07:06 02/12/18 06:25 - ABG Interpretation ABG results: PT/INR, D-dimer PT 13.6 Seconds (9.4-12.1) H 02/07/18 02:20 Consult Discharge Plan - Plan Referrals: Gerard Srivastava MD [Primary Care Provider] - (patient will go to swing bed...)
[2018-02-13] MEDS: *HR* Buprenorphine HCl 2 MG SUBLINGUAL TABLET SL SCH (21:42)
[2018-02-13 22:08] LABS: Amphetamine Screen,Urine Negative ng/mL (Cutoff=1000); Barbiturate Screen,Urine Negative ng/mL (Cutoff=200); Benzodiazepines Screen,Urine Negative ng/mL (Cutoff=200); Cannabinoid Screen,Urine Negative ng/mL (Cutoff = 50); Cocaine Screen,Urine Negative ng/mL (Cutoff= 300); Opiate Screen,Urine Negative ng/mL (Cutoff=300); Phencyclidine Screen,Urine Negative ng/mL (Cutoff=25)
[2018-02-14] MEDS: *HR* Heparin 5,000 UNIT/ML VIAL SQ SCH (06:03)
[2018-02-14] MEDS: Tiotropium 18 MCG inhalation IH SCH (07:55)
[2018-02-14] MEDS: Insulin LISPRO 300 UNITS/3 ML VIAL SQ SCH ×2 (08:02→11:26)
[2018-02-14] MEDS: *HR* Buprenorphine HCl 8 MG TAB.SUBL SL SCH (08:59)
[2018-02-14] MEDS: Aspirin Enteric Coated 81 MG Tablet PO SCH (09:00)
[2018-02-14] MEDS: Ketoconazole 2% CRM 15 GM TUBE TP SCH (09:00)
[2018-02-14] MEDS: *HR* Metformin 500 MG TABLET PO SCH (09:00)
[2018-02-14] MEDS: tiZANidine 4 MG TABLET PO SCH ×2 (09:00→15:27)
[2018-02-14] MEDS: Gabapentin 400 MG CAPSULE PO SCH ×2 (09:00→15:27)
[2018-02-14 11:03] VITALS: BP 97/65
--- NOTE | 2018-02-14 15:15 | Internal Med Progress Note ---
Date of Encounter: 02/14/18 Time of Encounter: 15:12 - Assessment and plan (1) CVA (cerebral vascular accident) Current Visit: Yes Status: Acute Assessment and plan: Acute vs. subacute CVA w/ L. residual weakness Generalized weakness and deconditioned Will need continued Rehabilitation PT/OT Repeat CT 02/13 w/ no significant changes from prior Stable for discharged to [facility] facility Discharged order and summary in place, same plan as before except for addition of bowel regiment Qualifiers: CVA mechanism: unspecified Qualified Code(s): I63.9 - Cerebral infarction, unspecified (2) Generalized weakness Current Visit: Yes Status: Acute Assessment and plan: Likely 2/2 CVA continue with PT/OT (3) Urinary retention Current Visit: Yes Status: Acute Assessment and plan: Urinary retention post CVA Had prior attempt of removal but needed to be re-inserted [place] in place now, can continue but will need Urology follow out post discharged as soon as possible Spoke with nurse to help arrange urology follow up (4) COPD (chronic obstructive pulmonary disease) Current Visit: Yes Status: Chronic Assessment and plan: Not SOB, duonebs PRN Qualifiers: COPD type: unspecified COPD Qualified Code(s): J44.9 - Chronic obstructive pulmonary disease, unspecified (5) Diabetes mellitus Current Visit: Yes Status: Chronic Assessment and plan: A1c 6.4% 01/2018 continue with metformin and ISS FS ACHS Diabetic diet Qualifiers: Diabetes mellitus type: type 2 Diabetes mellitus mcfp insulin use: without mcfp use Diabetes mellitus complication status: with unspecified complications Qualified Code(s): E11.8 - Type 2 diabetes mellitus with unspecified complications (6) Hyponatremia Current Visit: Yes Status: Chronic Assessment and plan: Hyponatremia throughout admission Current Na 130, asymptomatic Continue to monitor, will benefit from IVF (7) Thrombocytosis Current Visit: Yes Status: Chronic Assessment and plan: Thrombocytopenia improving from admission Elevated RDW and borderline MCV Likely due to Iron deficiency anemia Supplement with iron, monitor Platelets - Time Spent With Patient Total time spent is greater than 50% in coordination of care (as documented) at patient's floor/unit and/or counseling patient: Greater than 35 minutes - Subjective Interval history: Patient denies any new complaints today, reports feeling fine. No acute events overnight. However, nurse noted patient had not had a bowel movements in the past several days, patient denies any noticable abdominal discomfort or constipation. - Constitutional Vitals: Temp Pulse Resp BP Pulse Ox 99.2 F 92 16 97/65 95 02/14/18 11:02 02/14/18 11:02 02/14/18 11:02 02/14/18 11:02 02/14/18 11:02 General appearance: Present: cachectic, disheveled, A&O X 3, no acute distress Exam: General: Alert and oriented. Slow speech. Limited extremity movements. Skin: Normal color, no rash, no lesions. HEENT: EOMI, pupils equal, round and reactive. Cardiovascular: Regular rate, regular rythm. No murmurs appreciated. Lungs:Normal breath sounds, no wheezes or crackles. Abdomen:Soft, non-tender, no rigidity. Extremities:No deformity, no edema or tenderness, no joint swelling or clubbing. Neurological:Normal cognition, diffuse extremity weakness. LUE- 2/5, RUE- 3/5, b /l LE 0-1/5. Rest of the physical exam is non contributory Internal Medicine: Result - Labs CBC & Chem 7: 02/12/18 07:06 02/12/18 06:25 - ABG Interpretation ABG results: PT/INR, D-dimer PT 13.6 Seconds (9.4-12.1) H 02/07/18 02:20 - Impressions Impressions Head CT 02/13/18 14:52 IMPRESSION: 1. Stable CT scan of the brain with chronic small vessel ischemic disease. An MRI of the brain is suggested to evaluate for acute infarct. D/ / Obdulio Park MD / Obdulio Park MD Interpreting Provider: Obdulio Park MD Consult Discharge Plan - Plan Instructions: Diabetes Mellitus Type 2 in Adults (DC), Chronic Obstructive Pulmonary Disease (DC), Sepsis (DC), Pneumonia (DC) Referrals: Gerard Srivastava MD [Primary Care Provider] - (patient will go to swing bed...)
[2018-02-14] MEDS: Acetaminophen 325 MG TABLET PO PRN (17:33)
== END 2018-02-14 17:44 ==
LOC: EMEROO 19:58 → 2ANU 19:58 → SUATTDRO 23:47 → 2ANU 02-07 00:34
PROVIDERS: ADMIT Internal Medicine Nephrology; ATTEND Internal Medicine

== ENCOUNTER 2019-05-03 16:43 | Inpatient (IN) ==
[2019-05-03] MEDS ORDERED: 0.9 % Sodium Chloride 2,000 ML ONE (16:59)
[2019-05-03] MEDS: 0.9 % Sodium Chloride 1,000 ML IVC SCH ×2 (17:07→17:08)
[2019-05-03] MEDS ORDERED: Piperacillin/Tazobactam 3.375 GM in Water for inj. (sterile) 20 ML IVP ONE (17:08)
--- NOTE | 2019-05-03 17:22 | Emergency Department Note ---
Disposition Clinical Impression: Sepsis Qualifiers: Sepsis type: sepsis due to unspecified organism Sepsis acute organ dysfunction status: unspecified Qualified Code(s): A41.9 - Sepsis, unspecified organism Pneumonia Qualifiers: Pneumonia type: due to unspecified organism Laterality: bilateral Lung location: unspecified part of lung Qualified Code(s): J18.9 - Pneumonia, unspecified organism Altered mental status Qualifiers: Altered mental status type: unspecified Qualified Code(s): R41.82 - Altered mental status, unspecified UTI (urinary tract infection) Qualifiers: Urinary tract infection type: site unspecified Hematuria presence: without hematuria Qualified Code(s): N39.0 - Urinary tract infection, site not specified Disposition: Admitted As Inpatient Condition: Fair Time of Disposition: 19:00 General Adult HPI - General Stated complaint: ams Time Seen by Provider: 05/03/19 16:55 Source: family, EMS Mode of arrival: EMS Limitations: no limitations Nursing Notes Reviewed: Yes Vital Signs Reviewed: Yes - History of Present Illness HPI Narrative: Patient is a 63-year-old male with a past medical history including h ypertension, hyperlipidemia, COPD, diabetes mellitus type 2, cirrhosis of the liver on lactulose, presenting with chief complaint of altered mental status. states for the last couple of days, he has had increased productive cough. He does not wear oxygen at home and she states he gets frequent pneumonia. She states today, he was falling asleep frequently. He did have a temperature at home of 100.1 degrees Fahrenheit. She did not give him any medications. She has been giving him nebulizer treatments without much improvement in his cough. She also notes she has been having progressive shortness of breath. This afternoon, they were putting up Halloween decorations. She found him slumped over in a chair with a full can of beer spilling out. She states he did not have any other beers. He had 1 Suboxone as scheduled this morning. She was unable to wake him up and EMS was called. Patient arrived with decreased responsiveness and hypoxia. He was also significantly tachycardic. denies any unilateral weakness or numbness, abdominal pain, nausea or vomiting that he has been complaining. No recent diarrhea or antibiotic use. He denies chest pain. Pain Scale: 0 - Related Data Home Medications Medication Instructions Recorded Confirmed Gabapentin [Neurontin] 800 mg PO TID 01/25/18 05/03/19 Metformin HCl [Glucophage] 1,000 mg PO BIDWM 01/25/18 05/03/19 Albuterol Neb [Proventil Neb] 3 ml IH QID PRN 12/28/18 05/03/19 Amlodipine Besylate 5 mg PO DAILY 12/28/18 05/03/19 Atorvastatin [Lipitor] 40 mg PO HS 12/28/18 05/03/19 Cyclobenzaprine HCl 10 mg PO TID PRN 12/28/18 05/03/19 Fluticasone/Vilanterol [Breo 1 puff IH BID 12/28/18 05/03/19 Ellipta 200-25 Mcg INH] Lactulose [Enulose] 20 gm PO BID 12/28/18 05/03/19 Metoclopramide HCl 5 mg PO Q8H PRN 12/28/18 05/03/19 Tamsulosin HCl [Flomax] 0.4 mg PO DAILY 12/28/18 05/03/19 Buprenorphine HCl/Naloxone HCl 1.5 tab SL DAILY 05/03/19 05/03/19 [Buprenorphin-Naloxon 8-2 mg Sl] Trazodone HCl 50 mg PO HS PRN 05/03/19 05/03/19 Allergies Allergy/AdvReac Type Severity Reaction Status Date / Time No Known Allergies Allergy Verified 12/28/18 21:47 All systems ED: reviewed and negative except as stated. Review of Systems: As Per HPI Constitutional: Reports: fever. Denies: chills ENT ED: Reports: congestion Cardiovascular: Denies: chest pain, palpitations Respiratory: Reports: cough, dyspnea Gastrointestinal: Denies: abdominal pain, nausea, vomiting, diarrhea Genitourinary: Denies: dysuria, hematuria Neurological: Denies: headache, weakness Past Medical History - Past Medical History Attestation: Yes The following information was validated with the patient. Source: patient, old records reviewed, obtained from family Medical history: Reports: cirrhosis, COPD, CVA, diabetes, hyperlipidemia, hypertension Surgical history: Reports: orthopedic, other Psychiatric history: Reports: no psych history - Social History Smoking Status: Current every day smoker Smokeless Tobacco Status: No Alcohol use: Reports: heavy Drug use: Reports: opiates, methamphetamine, other Physical Exam - General Limitations: no limitations General appearance: appears intoxicated - Head Head exam: atraumatic, normocephalic - Eye Eye exam: Present: normal appearance, PERRL, EOMI. Absent: scleral icterus, conjunctival injection, nystagmus - ENT ENT exam: normal exam, normal oropharynx - Neck Neck exam: Present: normal inspection, trachea midline - Chest Chest inspection: Present: normal inspection, symmetric chest wall rise - Respiratory Respiratory exam: Present: other (Diminished breath sounds bilaterally with inspiratory and expiratory wheezing bilaterally, rhonchorous breath sounds on the right) - Cardiovascular Cardiovascular exam: Present: normal rhythm, tachycardia - Abdominal Exam Abdominal exam: Present: soft, Non-Tender, normal bowel sounds, other (Mild abdominal distention without any fluid wave, no guarding, rigidity) - Extremities Exam Extremities exam: Present: normal capillary refill. Absent: pedal edema, calf tenderness - Neurological Exam Neurological exam: Present: other (Patient does open eyes to name and will respond to some questions. He is responding to some commands.) - Skin Skin exam: Present: warm, dry, normal color. Absent: diaphoresis Course Vital Signs Temperature 102.2 F H 05/03/19 16:53 Pulse Rate 135 05/03/19 16:53 Respiratory Rate 26 05/03/19 16:53 Blood Pressure 116/77 05/03/19 16:53 O2 Sat by Pulse Oximetry 94 05/03/19 16:53 Temperature 100.8 F H 05/03/19 19:12 Pulse Rate 113 05/03/19 19:12 Respiratory Rate 19 05/03/19 19:15 Blood Pressure 101/76 05/03/19 19:12 O2 Sat by Pulse Oximetry 92 05/03/19 19:15 Oxygen Delivery Oxygen Delivery Oximizer Medical Decision Making - [facility] Narrative Medical decision making narrative: Patient is presenting with altered mental status. He does open his eyes to name and responds to commands. He does have increased cough and increased shortness of breath in the last 2 days. He had a temperature of 100.1 degrees Fahrenheit at home. at bedside states this is how he gets when he develops pneumonia. Most recent hospital admission was in December. We will obtain septic workup. Patient is placed on Vioxx the mask. Patient is febrile here with heart rate sinus tachycardia in the 130s. Chest x-ray will be obtained as he has significant expiratory wheezing and rhonchi on the right. Concern for pneumonia. IV Zosyn will be empirically given. He will also receive IV fluids. 18:32 Chest x-ray shows bibasilar airspace disease suspicious for pneumonia. Lactate normal, white blood count normal. Will add vancomycin to his antibiotic regimen. He will be receiving 2 L IV fluid bolus. Reassess the patient and he is much more alert and talkative. Wheezing is improved bilaterally. He also does have a urinary tract infection. He will be admitted for sepsis secondary to bilateral pneumonia and UTI. Heart rate improved to 117. 18:55 Discussed with admitted hospitalist, Dr. Leo, who accepts admission. Normal lactate. Patient does have leukocytosis of 16.2 - Medical Records Medical records reviewed: Yes I reviewed the patient's medical records. - Lab Data Lab results reviewed: Yes I reviewed the patient's lab results. Result diagrams: 05/03/19 18:41 05/03/19 17:13 Lab Results 05/03/19 05/03/19 05/03/19 Range/Units 17:13 17:13 17:26 WBC (4.3-11.1) K/mcL RBC (4.19-5.50) M/mcL Hgb (12.9-16.9) g/dL Hct (37.5-50.1) % MCV (83.0-100.0) fL MCH (28.0-33.3) pg MCHC (31.6-35.5) g/dL RDW (11.5-14.5) % Plt Count (140-400) K/mcL MPV (9.4-12.4) fL Immature Gran % (0-4) % Seg Neutrophils % % Lymphocytes % % Monocytes % % Eosinophils % % Basophils % % Neutrophils # (1.6-8.9) K/mcL Lymphocytes # (0.6-4.6) K/mcL Monocytes # (0.0-1.3) K/mcL Eosinophils # (0.0-0.6) K/mcL Basophils # (0.0-0.2) K/mcL PT 10.7 (9.4-12.1) Seconds INR 0.9 APTT 24.3 L (26.0-36.0) Seconds ABG pH 7.40 (7.32-7.45) pH Units ABG pCO2 45 (35-45) mmHg ABG pO2 107 H (85-104) mmHg ABG HCO3 28 H (21-27) mEq/L ABG Total CO2 29 H (20-26) mEq/L ABG O2 Saturation 98 (95-98) % ABG Base Excess 3 (-2 to 3) mEq/L O2 Delivery Device NRB Inspired O2 100.0 (1-15=lpm [id number]=%) Sodium 133 L (136-145) mEq/L Potassium 4.8 (3.5-5.1) mEq/L Chloride 100 (98-107) mEq/L Carbon Dioxide 25 (23-29) mEq/L BUN 13 (8-23) mg/dL Creatinine 0.79 (0.70-1.30) mg/dL Est GFR ( Amer) > 60 (> 60) Est GFR (Non-Af Amer) > 60 (> 60) BUN/Creatinine Ratio 16 (6-26) Glucose 111 H (70-105) mg/dL Calculated Osmolality 277 L (280-300) Lactic Acid (0.5-2.2) mmol/L Calcium 10.1 (8.6-10.3) mg/dL Phosphorus 2.9 (2.7-4.5) mg/dL Magnesium 1.5 L (1.6-2.6) mg/dL Total Bilirubin 0.6 (0.3-1.0) mg/dL Direct Bilirubin 0.1 (0.0-0.2) mg/dL Indirect Bilirubin 0.5 (0.0-1.2) mg/dL AST 19 (13-39) Units/L ALT 13 (7-52) Units/L Alkaline Phosphatase 94 (34-104) Units/L Ammonia (16-53) mcmol/L Troponin I < 0.03 (< 0.04) ng/mL Serum Total Protein 8.1 (6.4-8.9) g/dL Albumin 4.2 (3.5-5.7) g/dL Globulin 3.9 H (2.4-3.5) g/dL Albumin/Globulin Ratio 1.1 (1.1-2.2) Lipase 4 L (11-82) Units/L Urine Color (Yellow) Urine Clarity (Clear) Urine pH (5.0-8.0) pH Units Ur Specific Lena (1.010-1.025) Urine Protein (Neg-Trace) mg/dL Urine Glucose (UA) (Normal) mg/dL Urine Ketones (Negative) mg/dL Urine Blood (Negative) Urine Nitrite (Negative) Urine Bilirubin (Negative) Urine Urobilinogen (Normal) mg/dL Ur Leukocyte Esterase (Negative) Urine Microscopic RBC (0-3) per hpf Urine Microscopic WBC (0-3) per hpf Ur Squamous Epith Cells (None-Few) per lpf Urine Bacteria (None-Few) per hpf Hyaline Casts (None-Few) per lpf Ur Culture Indicated? (NO) Ethyl Alcohol < 10 (Less than 10) mg/dL 05/03/19 05/03/19 05/03/19 Range/Units 18:14 18:41 18:41 WBC 16.3 H (4.3-11.1) K/mcL RBC 4.27 (4.19-5.50) M/mcL Hgb 11.9 L (12.9-16.9) g/dL Hct 36.6 L (37.5-50.1) % MCV 85.7 (83.0-100.0) fL MCH 27.9 L (28.0-33.3) pg MCHC 32.5 (31.6-35.5) g/dL RDW 16.7 H (11.5-14.5) % Plt Count 357 (140-400) K/mcL MPV 9.3 L (9.4-12.4) fL Immature Gran % 0.4 (0-4) % Seg Neutrophils % 87.7 % Lymphocytes % 6.9 % Monocytes % 4.6 % Eosinophils % 0.2 % Basophils % 0.2 % Neutrophils # 14.3 H (1.6-8.9) K/mcL Lymphocytes # 1.1 (0.6-4.6) K/mcL Monocytes # 0.8 (0.0-1.3) K/mcL Eosinophils # 0.0 (0.0-0.6) K/mcL Basophils # 0.0 (0.0-0.2) K/mcL PT (9.4-12.1) Seconds INR APTT (26.0-36.0) Seconds ABG pH (7.32-7.45) pH Units ABG pCO2 (35-45) mmHg ABG pO2 (85-104) mmHg ABG HCO3 (21-27) mEq/L ABG Total CO2 (20-26) mEq/L ABG O2 Saturation (95-98) % ABG Base Excess (-2 to 3) mEq/L O2 Delivery Device Inspired O2 (1-15=lpm [id number]=%) Sodium (136-145) mEq/L Potassium (3.5-5.1) mEq/L Chloride (98-107) mEq/L Carbon Dioxide (23-29) mEq/L BUN (8-23) mg/dL Creatinine (0.70-1.30) mg/dL Est GFR ( Amer) (> 60) Est GFR (Non-Af Amer) (> 60) BUN/Creatinine Ratio (6-26) Glucose (70-105) mg/dL Calculated Osmolality (280-300) Lactic Acid 1.2 (0.5-2.2) mmol/L Calcium (8.6-10.3) mg/dL Phosphorus (2.7-4.5) mg/dL Magnesium (1.6-2.6) mg/dL Total Bilirubin (0.3-1.0) mg/dL Direct Bilirubin (0.0-0.2) mg/dL Indirect Bilirubin (0.0-1.2) mg/dL AST (13-39) Units/L ALT (7-52) Units/L Alkaline Phosphatase (34-104) Units/L Ammonia (16-53) mcmol/L Troponin I (< 0.04) ng/mL Serum Total Protein (6.4-8.9) g/dL Albumin (3.5-5.7) g/dL Globulin (2.4-3.5) g/dL Albumin/Globulin Ratio (1.1-2.2) Lipase (11-82) Units/L Urine Color Yellow (Yellow) Urine Clarity Clear (Clear) Urine pH 7.0 (5.0-8.0) pH Units Ur Specific Lena 1.014 (1.010-1.025) Urine Protein Negative (Neg-Trace) mg/dL Urine Glucose (UA) Normal (Normal) mg/dL Urine Ketones Negative (Negative) mg/dL Urine Blood Trace H (Negative) Urine Nitrite Positive A (Negative) Urine Bilirubin Negative (Negative) Urine Urobilinogen Normal (Normal) mg/dL Ur Leukocyte Esterase Large H (Negative) Urine Microscopic RBC 0-3 (0-3) per hpf Urine Microscopic WBC 50-100 H (0-3) per hpf Ur Squamous Epith Cells Few (None-Few) per lpf Urine Bacteria Few (None-Few) per hpf Hyaline Casts None Seen (None-Few) per lpf Ur Culture Indicated? YES A (NO) Ethyl Alcohol (Less than 10) mg/dL 05/03/19 Range/Units 18:41 WBC (4.3-11.1) K/mcL RBC (4.19-5.50) M/mcL Hgb (12.9-16.9) g/dL Hct (37.5-50.1) % MCV (83.0-100.0) fL MCH (28.0-33.3) pg MCHC (31.6-35.5) g/dL RDW (11.5-14.5) % Plt Count (140-400) K/mcL MPV (9.4-12.4) fL Immature Gran % (0-4) % Seg Neutrophils % % Lymphocytes % % Monocytes % % Eosinophils % % Basophils % % Neutrophils # (1.6-8.9) K/mcL Lymphocytes # (0.6-4.6) K/mcL Monocytes # (0.0-1.3) K/mcL Eosinophils # (0.0-0.6) K/mcL Basophils # (0.0-0.2) K/mcL PT (9.4-12.1) Seconds INR APTT (26.0-36.0) Seconds ABG pH (7.32-7.45) pH Units ABG pCO2 (35-45) mmHg ABG pO2 (85-104) mmHg ABG HCO3 (21-27) mEq/L ABG Total CO2 (20-26) mEq/L ABG O2 Saturation (95-98) % ABG Base Excess (-2 to 3) mEq/L O2 Delivery Device Inspired O2 (1-15=lpm [id number]=%) Sodium (136-145) mEq/L Potassium (3.5-5.1) mEq/L Chloride (98-107) mEq/L Carbon Dioxide (23-29) mEq/L BUN (8-23) mg/dL Creatinine (0.70-1.30) mg/dL Est GFR ( Amer) (> 60) Est GFR (Non-Af Amer) (> 60) BUN/Creatinine Ratio (6-26) Glucose (70-105) mg/dL Calculated Osmolality (280-300) Lactic Acid (0.5-2.2) mmol/L Calcium (8.6-10.3) mg/dL Phosphorus (2.7-4.5) mg/dL Magnesium (1.6-2.6) mg/dL Total Bilirubin (0.3-1.0) mg/dL Direct Bilirubin (0.0-0.2) mg/dL Indirect Bilirubin (0.0-1.2) mg/dL AST (13-39) Units/L ALT (7-52) Units/L Alkaline Phosphatase (34-104) Units/L Ammonia 38 (16-53) mcmol/L Troponin I (< 0.04) ng/mL Serum Total Protein (6.4-8.9) g/dL Albumin (3.5-5.7) g/dL Globulin (2.4-3.5) g/dL Albumin/Globulin Ratio (1.1-2.2) Lipase (11-82) Units/L Urine Color (Yellow) Urine Clarity (Clear) Urine pH (5.0-8.0) pH Units Ur Specific Lena (1.010-1.025) Urine Protein (Neg-Trace) mg/dL Urine Glucose (UA) (Normal) mg/dL Urine Ketones (Negative) mg/dL Urine Blood (Negative) Urine Nitrite (Negative) Urine Bilirubin (Negative) Urine Urobilinogen (Normal) mg/dL Ur Leukocyte Esterase (Negative) Urine Microscopic RBC (0-3) per hpf Urine Microscopic WBC (0-3) per hpf Ur Squamous Epith Cells (None-Few) per lpf Urine Bacteria (None-Few) per hpf Hyaline Casts (None-Few) per lpf Ur Culture Indicated? (NO) Ethyl Alcohol (Less than 10) mg/dL - Radiology Data Radiology results reviewed: Yes I reviewed the patient's radiology results. Chest X-Ray 05/03/19 17:44 IMPRESSION: Bibasilar airspace disease suspicious for pneumonia. There may be at least a component of edema given few basilar peripheral septal lines. Correlation is recommended. D/ / Eleonora Pryor Cha, MD / Eleonora Pryor Cha, MD Interpreting Provider: Eleonora Pryor Cha, MD Head CT 05/03/19 18:00 IMPRESSION: No acute intracranial abnormality. Air-fluid levels within the maxillary sinuses may indicate acute paranasal sinus disease. D/ / 05/03/2019 18:12:15 Quirino Hoyt MD / talha Interpreting Provider: Quirino Hoyt MD Attestation Statement - Attestation Attestation: I have seen this patient with the resident physician, I have personally evaluated this patient. I had reviewed the chart and document dictation by the resident physician and aM in agreement with the information documented by the resident physician. Please see documentation by the resident physician for complete chart including past medical history, family medical history, review of systems, current history and physical and laboratory and imaging studies. I was present for all procedures, provided direct supervision for all procedures, was present for the entirety of all procedures and provided direct guidance during the procedures. Please see documentation by the resident physician for any procedures performed. I have reviewed all interpretations of EKGs, and reviewed all EKGs performed on patient's as well. I have also reviewed reports of imaging as provided by radiology.
[2019-05-03 17:30] LABS: ABG Base Excess 3 mEq/L (-2 to 3); ABG HCO3 28 mEq/L (21-27); ABG Oxygen Saturation 98 % (95-98); ABG PCO2 45 mmHg (35-45); ABG PO2 107 mmHg (85-104); ABG TCO2 29 mEq/L (20-26)
[2019-05-03 17:40] LABS: INR 0.9; Prothrombin Time 10.7 Seconds (9.4-12.1)
[2019-05-03 17:43] LABS: Activated Partial Thrombo Time 24.3 Seconds (26.0-36.0)
[2019-05-03 18:01] LABS: Alanine Aminotransferase 13 Units/L (7-52); Albumin 4.2 g/dL (3.5-5.7); Albumin/Globulin Ratio 1.1 (1.1-2.2); Alkaline Phosphatase 94 Units/L (34-104); Aspartate Amino Transferase 19 Units/L (13-39); BUN/Creatinine Ratio 16 (6-26); Bilirubin,Direct 0.1 mg/dL (0.0-0.2); Bilirubin,Indirect 0.5 mg/dL (0.0-1.2); Bilirubin,Total 0.6 mg/dL (0.3-1.0); Blood Urea Nitrogen 13 mg/dL (8-23); Calcium 10.1 mg/dL (8.6-10.3); Carbon Dioxide 25 mEq/L (23-29); Chloride 100 mEq/L (98-107); Ethanol < 10 mg/dL (Less than 10); Globulin 3.9 g/dL (2.4-3.5); Glucose 111 mg/dL (70-105); Lipase 4 Units/L (11-82); Magnesium 1.5 mg/dL (1.6-2.6); Osmolality,Calculated 277 (280-300); Phosphorous 2.9 mg/dL (2.7-4.5); Potassium 4.8 mEq/L (3.5-5.1); Sodium 133 mEq/L (136-145); Total Protein 8.1 g/dL (6.4-8.9); Troponin I < 0.03 ng/mL (< 0.04); eGFR For African Americans > 60 (> 60); eGFR For Non-African Americans > 60 (> 60)
[2019-05-03 18:24] LABS: Bilirubin,Urine Negative (Negative); Blood,Urine Trace (Negative); Clarity,Urine Clear (Clear); Color,Urine Yellow (Yellow); Glucose,Urine (UA) Normal (Normal); Ketones,Urine Negative (Negative); Leukocyte Esterase,Urine Large (Negative); Nitrite,Urine Positive (Negative); Protein,Urine Negative (Neg-Trace); Specific Gravity,Urine 1.014 (1.010-1.025); Urobilinogen,Urine Normal (Normal)
[2019-05-03 18:30] LABS: Bacteria,Urine Few per hpf (None-Few); Hyaline Casts,Urine None Seen per lpf (None-Few); RBC,Urine 0-3 per hpf (0-3); Squamous Epithelial Cell,Urine Few per lpf (None-Few); WBC,Urine 50-100 per hpf (0-3)
[2019-05-03] MEDS ORDERED: Ipratropium/Albuterol Neb 3 ML IH ONE (18:47)
[2019-05-03] MEDS ORDERED: 0.9 % Sodium Chloride 1,000 ML IVC ONE (18:47)
[2019-05-03] MEDS ORDERED: Piperacillin/Tazobactam 3.375 GM in 0.9 % Sodium Chloride Mini Bag 100 ML IVPB ONE (18:54)
[2019-05-03 18:57] LABS: Basophils % 0.2 %; Eosinophils % 0.2 %; Hematocrit 36.6 % (37.5-50.1); Hemoglobin 11.9 g/dL (12.9-16.9); Immature Granulocytes % 0.4 % (0-4); Lymphocytes # 1.1 K/mcL (0.6-4.6); Lymphocytes % 6.9 %; Mean Corpuscular HGB Conc 32.5 g/dL (31.6-35.5); Mean Corpuscular Hemoglobin 27.9 pg (28.0-33.3); Mean Corpuscular Volume 85.7 fL (83.0-100.0); Mean Platelet Volume 9.3 fL (9.4-12.4); Monocytes # 0.8 K/mcL (0.0-1.3); Monocytes % 4.6 %; Neutrophils # 14.3 K/mcL (1.6-8.9); Platelet Count 357 K/mcL (140-400); Red Blood Count 4.27 M/mcL (4.19-5.50); Red Cell Distribution Width 16.7 % (11.5-14.5); Segmented Neutrophils % 87.7 %; White Blood Count 16.3 K/mcL (4.3-11.1)
[2019-05-03] MEDS ORDERED: methylPREDNISolone 125 MG/2 ML VIAL IVP ONE (19:00)
--- NOTE | 2019-05-03 19:16 | Emergency Department Note ---
Disposition Clinical Impression: Sepsis Qualifiers: Sepsis type: sepsis due to unspecified organism Sepsis acute organ dysfunction status: unspecified Qualified Code(s): A41.9 - Sepsis, unspecified organism Pneumonia Qualifiers: Pneumonia type: due to unspecified organism Laterality: bilateral Lung location: unspecified part of lung Qualified Code(s): J18.9 - Pneumonia, unspecified organism Altered mental status Qualifiers: Altered mental status type: unspecified Qualified Code(s): R41.82 - Altered mental status, unspecified UTI (urinary tract infection) Qualifiers: Urinary tract infection type: site unspecified Hematuria presence: without hematuria Qualified Code(s): N39.0 - Urinary tract infection, site not specified Disposition: Admitted As Inpatient Condition: Fair Referrals: Gerard Srivastava MD [Primary Care Provider] - Time of Disposition: 19:19 General Adult HPI - General Chief complaint: ED Altered Mental Status Stated complaint: ams Time Seen by Provider: 05/03/19 16:55 Source: family, EMS Mode of arrival: EMS Limitations: no limitations Nursing Notes Reviewed: Yes Vital Signs Reviewed: Yes - History of Present Illness Pain Scale: 0 - Related Data Home Medications Medication Instructions Recorded Confirmed Gabapentin [Neurontin] 800 mg PO TID 01/25/18 12/28/18 Metformin HCl [Glucophage] 1,000 mg PO BIDWM 01/25/18 12/28/18 Albuterol Neb [Proventil Neb] 2.5 mg IH TID PRN 12/28/18 12/28/18 Amlodipine Besylate 5 mg PO DAILY 12/28/18 12/28/18 Atorvastatin [Lipitor] 40 mg PO HS 12/28/18 12/28/18 Cyclobenzaprine HCl 10 mg PO TID PRN 12/28/18 12/28/18 Fluticasone/Vilanterol [Breo 1 puff IH BID 12/28/18 12/28/18 Ellipta 200-25 Mcg INH] Ketoconazole 2% CRM [Nizoral Cream] 1 appl TP DAILY PRN 12/28/18 12/28/18 Lactulose [Enulose] 3.33 gm PO BID 12/28/18 12/28/18 Melatonin 1 - 3 mg PO HS 12/28/18 12/28/18 Metoclopramide HCl 5 mg PO Q8H PRN 12/28/18 12/28/18 OxyCODONE Immed Rel [Roxicodone 10 10 mg PO Q4H PRN 12/28/18 12/28/18 MG] Tamsulosin HCl [Flomax] 0.4 mg PO DAILY 12/28/18 12/28/18 Previous Rx's Medication Instructions Recorded Ertapenem [INVanz] 1,000 mg IVPB DAILY #4 vial 01/01/19 Nicotine Patch [Nicoderm] 21 mg TD DAILY #30 patch.td24 01/01/19 predniSONE [PredniSONE] 40 mg PO DAILY #10 tablet 01/01/19 Allergies Allergy/AdvReac Type Severity Reaction Status Date / Time No Known Allergies Allergy Verified 12/28/18 21:47 All systems ED: reviewed and negative except as stated. Review of Systems: As Per HPI Past Medical History - Past Medical History Medical history: Reports: cirrhosis, COPD, CVA, diabetes, hyperlipidemia, hypertension Surgical history: Reports: orthopedic, other Psychiatric history: Reports: no psych history - Social History Smoking Status: Current every day smoker Smokeless Tobacco Status: No Alcohol use: Reports: heavy Drug use: Reports: opiates, methamphetamine, other Physical Exam - General Limitations: no limitations General appearance: appears intoxicated Course Vital Signs Temperature 102.2 F H 05/03/19 16:53 Pulse Rate 135 05/03/19 16:53 Respiratory Rate 26 05/03/19 16:53 Blood Pressure 116/77 05/03/19 16:53 O2 Sat by Pulse Oximetry 94 05/03/19 16:53 Temperature 102.2 F H 05/03/19 16:53 Pulse Rate 116 05/03/19 18:34 Respiratory Rate 18 05/03/19 18:34 Blood Pressure 102/65 05/03/19 18:34 O2 Sat by Pulse Oximetry 94 05/03/19 18:34 Oxygen Delivery Oxygen Delivery Oximizer Medical Decision Making - Lab Data Result diagrams: 05/03/19 18:41 05/03/19 17:13 Lab Results 05/03/19 05/03/19 05/03/19 Range/Units 17:13 17:13 17:26 WBC (4.3-11.1) K/mcL RBC (4.19-5.50) M/mcL Hgb (12.9-16.9) g/dL Hct (37.5-50.1) % MCV (83.0-100.0) fL MCH (28.0-33.3) pg MCHC (31.6-35.5) g/dL RDW (11.5-14.5) % Plt Count (140-400) K/mcL MPV (9.4-12.4) fL Immature Gran % (0-4) % Seg Neutrophils % % Lymphocytes % % Monocytes % % Eosinophils % % Basophils % % Neutrophils # (1.6-8.9) K/mcL Lymphocytes # (0.6-4.6) K/mcL Monocytes # (0.0-1.3) K/mcL Eosinophils # (0.0-0.6) K/mcL Basophils # (0.0-0.2) K/mcL PT 10.7 (9.4-12.1) Seconds INR 0.9 APTT 24.3 L (26.0-36.0) Seconds ABG pH 7.40 (7.32-7.45) pH Units ABG pCO2 45 (35-45) mmHg ABG pO2 107 H (85-104) mmHg ABG HCO3 28 H (21-27) mEq/L ABG Total CO2 29 H (20-26) mEq/L ABG O2 Saturation 98 (95-98) % ABG Base Excess 3 (-2 to 3) mEq/L O2 Delivery Device NRB Inspired O2 100.0 (1-15=lpm [id number]=%) Sodium 133 L (136-145) mEq/L Potassium 4.8 (3.5-5.1) mEq/L Chloride 100 (98-107) mEq/L Carbon Dioxide 25 (23-29) mEq/L BUN 13 (8-23) mg/dL Creatinine 0.79 (0.70-1.30) mg/dL Est GFR ( Amer) > 60 (> 60) Est GFR (Non-Af Amer) > 60 (> 60) BUN/Creatinine Ratio 16 (6-26) Glucose 111 H (70-105) mg/dL Calculated Osmolality 277 L (280-300) Lactic Acid (0.5-2.2) mmol/L Calcium 10.1 (8.6-10.3) mg/dL Phosphorus 2.9 (2.7-4.5) mg/dL Magnesium 1.5 L (1.6-2.6) mg/dL Total Bilirubin 0.6 (0.3-1.0) mg/dL Direct Bilirubin 0.1 (0.0-0.2) mg/dL Indirect Bilirubin 0.5 (0.0-1.2) mg/dL AST 19 (13-39) Units/L ALT 13 (7-52) Units/L Alkaline Phosphatase 94 (34-104) Units/L Ammonia (16-53) mcmol/L Troponin I < 0.03 (< 0.04) ng/mL Serum Total Protein 8.1 (6.4-8.9) g/dL Albumin 4.2 (3.5-5.7) g/dL Globulin 3.9 H (2.4-3.5) g/dL Albumin/Globulin Ratio 1.1 (1.1-2.2) Lipase 4 L (11-82) Units/L Urine Color (Yellow) Urine Clarity (Clear) Urine pH (5.0-8.0) pH Units Ur Specific Shirley (1.010-1.025) Urine Protein (Neg-Trace) mg/dL Urine Glucose (UA) (Normal) mg/dL Urine Ketones (Negative) mg/dL Urine Blood (Negative) Urine Nitrite (Negative) Urine Bilirubin (Negative) Urine Urobilinogen (Normal) mg/dL Ur Leukocyte Esterase (Negative) Urine Microscopic RBC (0-3) per hpf Urine Microscopic WBC (0-3) per hpf Ur Squamous Epith Cells (None-Few) per lpf Urine Bacteria (None-Few) per hpf Hyaline Casts (None-Few) per lpf Ur Culture Indicated? (NO) Ethyl Alcohol < 10 (Less than 10) mg/dL 05/03/19 05/03/19 05/03/19 Range/Units 18:14 18:41 18:41 WBC 16.3 H (4.3-11.1) K/mcL RBC 4.27 (4.19-5.50) M/mcL Hgb 11.9 L (12.9-16.9) g/dL Hct 36.6 L (37.5-50.1) % MCV 85.7 (83.0-100.0) fL MCH 27.9 L (28.0-33.3) pg MCHC 32.5 (31.6-35.5) g/dL RDW 16.7 H (11.5-14.5) % Plt Count 357 (140-400) K/mcL MPV 9.3 L (9.4-12.4) fL Immature Gran % 0.4 (0-4) % Seg Neutrophils % 87.7 % Lymphocytes % 6.9 % Monocytes % 4.6 % Eosinophils % 0.2 % Basophils % 0.2 % Neutrophils # 14.3 H (1.6-8.9) K/mcL Lymphocytes # 1.1 (0.6-4.6) K/mcL Monocytes # 0.8 (0.0-1.3) K/mcL Eosinophils # 0.0 (0.0-0.6) K/mcL Basophils # 0.0 (0.0-0.2) K/mcL PT (9.4-12.1) Seconds INR APTT (26.0-36.0) Seconds ABG pH (7.32-7.45) pH Units ABG pCO2 (35-45) mmHg ABG pO2 (85-104) mmHg ABG HCO3 (21-27) mEq/L ABG Total CO2 (20-26) mEq/L ABG O2 Saturation (95-98) % ABG Base Excess (-2 to 3) mEq/L O2 Delivery Device Inspired O2 (1-15=lpm [id number]=%) Sodium (136-145) mEq/L Potassium (3.5-5.1) mEq/L Chloride (98-107) mEq/L Carbon Dioxide (23-29) mEq/L BUN (8-23) mg/dL Creatinine (0.70-1.30) mg/dL Est GFR ( Amer) (> 60) Est GFR (Non-Af Amer) (> 60) BUN/Creatinine Ratio (6-26) Glucose (70-105) mg/dL Calculated Osmolality (280-300) Lactic Acid 1.2 (0.5-2.2) mmol/L Calcium (8.6-10.3) mg/dL Phosphorus (2.7-4.5) mg/dL Magnesium (1.6-2.6) mg/dL Total Bilirubin (0.3-1.0) mg/dL Direct Bilirubin (0.0-0.2) mg/dL Indirect Bilirubin (0.0-1.2) mg/dL AST (13-39) Units/L ALT (7-52) Units/L Alkaline Phosphatase (34-104) Units/L Ammonia (16-53) mcmol/L Troponin I (< 0.04) ng/mL Serum Total Protein (6.4-8.9) g/dL Albumin (3.5-5.7) g/dL Globulin (2.4-3.5) g/dL Albumin/Globulin Ratio (1.1-2.2) Lipase (11-82) Units/L Urine Color Yellow (Yellow) Urine Clarity Clear (Clear) Urine pH 7.0 (5.0-8.0) pH Units Ur Specific Shirley 1.014 (1.010-1.025) Urine Protein Negative (Neg-Trace) mg/dL Urine Glucose (UA) Normal (Normal) mg/dL Urine Ketones Negative (Negative) mg/dL Urine Blood Trace H (Negative) Urine Nitrite Positive A (Negative) Urine Bilirubin Negative (Negative) Urine Urobilinogen Normal (Normal) mg/dL Ur Leukocyte Esterase Large H (Negative) Urine Microscopic RBC 0-3 (0-3) per hpf Urine Microscopic WBC 50-100 H (0-3) per hpf Ur Squamous Epith Cells Few (None-Few) per lpf Urine Bacteria Few (None-Few) per hpf Hyaline Casts None Seen (None-Few) per lpf Ur Culture Indicated? YES A (NO) Ethyl Alcohol (Less than 10) mg/dL 05/03/19 Range/Units 18:41 WBC (4.3-11.1) K/mcL RBC (4.19-5.50) M/mcL Hgb (12.9-16.9) g/dL Hct (37.5-50.1) % MCV (83.0-100.0) fL MCH (28.0-33.3) pg MCHC (31.6-35.5) g/dL RDW (11.5-14.5) % Plt Count (140-400) K/mcL MPV (9.4-12.4) fL Immature Gran % (0-4) % Seg Neutrophils % % Lymphocytes % % Monocytes % % Eosinophils % % Basophils % % Neutrophils # (1.6-8.9) K/mcL Lymphocytes # (0.6-4.6) K/mcL Monocytes # (0.0-1.3) K/mcL Eosinophils # (0.0-0.6) K/mcL Basophils # (0.0-0.2) K/mcL PT (9.4-12.1) Seconds INR APTT (26.0-36.0) Seconds ABG pH (7.32-7.45) pH Units ABG pCO2 (35-45) mmHg ABG pO2 (85-104) mmHg ABG HCO3 (21-27) mEq/L ABG Total CO2 (20-26) mEq/L ABG O2 Saturation (95-98) % ABG Base Excess (-2 to 3) mEq/L O2 Delivery Device Inspired O2 (1-15=lpm [id number]=%) Sodium (136-145) mEq/L Potassium (3.5-5.1) mEq/L Chloride (98-107) mEq/L Carbon Dioxide (23-29) mEq/L BUN (8-23) mg/dL Creatinine (0.70-1.30) mg/dL Est GFR ( Amer) (> 60) Est GFR (Non-Af Amer) (> 60) BUN/Creatinine Ratio (6-26) Glucose (70-105) mg/dL Calculated Osmolality (280-300) Lactic Acid (0.5-2.2) mmol/L Calcium (8.6-10.3) mg/dL Phosphorus (2.7-4.5) mg/dL Magnesium (1.6-2.6) mg/dL Total Bilirubin (0.3-1.0) mg/dL Direct Bilirubin (0.0-0.2) mg/dL Indirect Bilirubin (0.0-1.2) mg/dL AST (13-39) Units/L ALT (7-52) Units/L Alkaline Phosphatase (34-104) Units/L Ammonia 38 (16-53) mcmol/L Troponin I (< 0.04) ng/mL Serum Total Protein (6.4-8.9) g/dL Albumin (3.5-5.7) g/dL Globulin (2.4-3.5) g/dL Albumin/Globulin Ratio (1.1-2.2) Lipase (11-82) Units/L Urine Color (Yellow) Urine Clarity (Clear) Urine pH (5.0-8.0) pH Units Ur Specific Shirley (1.010-1.025) Urine Protein (Neg-Trace) mg/dL Urine Glucose (UA) (Normal) mg/dL Urine Ketones (Negative) mg/dL Urine Blood (Negative) Urine Nitrite (Negative) Urine Bilirubin (Negative) Urine Urobilinogen (Normal) mg/dL Ur Leukocyte Esterase (Negative) Urine Microscopic RBC (0-3) per hpf Urine Microscopic WBC (0-3) per hpf Ur Squamous Epith Cells (None-Few) per lpf Urine Bacteria (None-Few) per hpf Hyaline Casts (None-Few) per lpf Ur Culture Indicated? (NO) Ethyl Alcohol (Less than 10) mg/dL Attestation Statement - Attestation Attestation: Patient presents emergency Department with chief complaint of altered mental status, respiratory difficulty fevers and generalized illness. He has a long- standing history of chronic liver disease, cirrhosis, recurrent pneumonia recurrent UTIs, she does not believe he has ever had chest pain he worked Of his abdomen but she states maybe he has had one in the past. She states that this is how he is active when he has had pneumonia in the past. He does have a histo ry of hyperammonemia and does take lactulose. She reports that he has been sick for the last couple of days with increasing cough and sputum production and reported shortness of breath, and reports that she thinks he might have a UTI. She states that they were hanging Halloween decorations today, she went to check on him and found him laying over, having spilled his beer and with decreased level of consciousness, she called the paramedics. Upon presentation the patient is lethargic but he does arouse to voice and opens his eyes and answers questions he is denying any current pain he does not or shortness of breath. He states he feels warm and generally weak. He denies any unilateral numbness or weakness. He denies headache or neck pain. He denies abdominal pain he does endorse cough and sputum production. He denies black or bloody stool he denies pain in his extremities. He denies any rashes. He is lethargic and appears "is awake and answering questions following commands opens his eyes, no icterus. Cranial nerves are grossly intact oropharynx reveals slightly dry appearing mucous membranes. Lungs are diffusely coarse, with wheezing and rhonchi bilaterally. Cardiovascular tachycardic regular rhythm no murmurs rubs or gallops abdomen is soft nondistended without rebound guarding or peritoneal sign, question small ascites fluid wave no anasarca. There is no ecchymosis on the abdomen. No spider angioma. No significant peripheral edema nonfocal neurologic examination apart from his lethargy. No unilateral findings. Trace lower extremity edema, no unilateral swelling palpable cord calf tenderness over sign or clinical evidence of DVT no obvious asterixis. No jaundice no petechiae. Patient was given IV fluids breathing treatments steroids and IV antibiotics. Head CT showed no acute findings. Chest x-ray shows bilateral pneumonia. Urinalysis highly consistent with UTI and positive nitrites positive bacteria. Positive bacteria and positive white blood cells CBC demonstrated leukocytosis no other acute findings. Renal panel LFTs within acceptable limits ammonia is within acceptable limits. Cardiac enzymes magnesium were within acceptable limits, apart from slightly low magnesium 1.5. Lactic acid was normal. EKG was sinus tachycardia no evidence of acute ischemic dysrhythmia or hyperkalemia. Patient had blood culture sent was given IV antibiotics after this. Cardiac enzymes were negative. ABG was within except limits without significant hypoxia or CO2 retention. No acidemia Patient admitted to the hospital for further evaluation and management of pneumonia and UTI bronchospasm. Repeat evaluations he is becoming much more alert awake, tachycardia is improving, lung sounds are improving patient is feeling improved in regards to his symptoms. He was admitted to the hospital for further evaluation and management. Patient continues to deny abdominal pain headache or neck pain, nothing to suggest encephalitis meningitis or spontaneous picture of peritonitis. Total critical care time as provided by myself excluding any procedures performed was 30 minutes.
[2019-05-03] MEDS ORDERED: Naloxone 0.4 MG/ML INJ IVP PRN (21:49)
[2019-05-03] MEDS ORDERED: Albuterol 2.5 MG/3 ML NEBULIZER IH PRN (22:00)
[2019-05-03] MEDS ORDERED: Dextrose Gel 15 GM/37.5 ML TUBE PO PRN ×2 (22:16)
[2019-05-03] MEDS ORDERED: D5% in Water 1,000 ML IVC PRN (22:16)
[2019-05-03] MEDS ORDERED: *HR* Dextrose 50 % in Water (Syg) 50 ML SYRINGE IVP PRN (22:16)
[2019-05-03] MEDS: Ipratropium/Albuterol Neb 3 ML IH SCH (22:17)
--- NOTE | 2019-05-03 22:23 | Internal Med History&Physical ---
Date of Encounter: 05/03/19 Time of Encounter: 20:55 Internal Medicine - H&P: HPI Chief complaint: Sepsis Admitted From: Emergency Dept Plans for Post Hospital Care: Home History of present illness: Mr. Rizzo is a 63 year old male Patient presented to the emergency department for altered mental status. Patient does not provide much history regarding the events leading up to his hospitalization, but according to the emergency department note, patient's stated that for the last few days the patient has had increased productive cough. Today while she was setting up Halloween decorations she found the patie nt sitting in a chair slumped over with a can of beer spilling out onto the ground. She called an ambulance to transfer him to the hospital. Emergency department vital signs: Temperature 102.2, pulse 135, respiratory rate 26, blood pressure 116/77, oxygen saturation 94% on nonrebreather mask. CBC: White count 16.3, hemoglobin 11.9, platelets 357. BMP: Unremarkable Lactic acid 1.2 Phosphorus 2.9 Magnesium 1.5 Lipase 4 INR was 0.9 AB.4, PCO2 45, PO2 107. Urinalysis: Trace blood, positive nitrite, large leukocyte esterase, 50-100 white blood cells. Blood alcohol level less than 10 EKG: Sinus tachycardia, rate 131, QTC 415 [address]. No ischemic changes CT head: No acute intracranial abnormalities Chest x-ray showed bibasilar airspace disease suspicious for pneumonia Emergency department patient was given a total of 2 L of IV fluids, breathing treatments, IV steroids and was started on Zosyn and vancomycin. Blood cultures and urine cultures were obtained. Patient was admitted to the hospital for further management. Upon my evaluation, patient is resting comfortably in the ER bed in no acute distress. He states that he was recently being treated for pneumonia outpatient, but he continued to worsen. He admits to a cough but is productive of white sputum. He also has occasional burning with urination. He is currently on oxygen here in the ER, but does not use oxygen at home. He does have breathing treatments however. He is a cirrhosis patient, and currently continues to drink 2-3 beers every other day. He also smokes about a pack of cigarettes daily. He denies other drugs, however he does have a history of heroin use. He is currently taking Suboxone/naloxone. He has a history of diabetes. He is a full code. Past Med Surg Social Fam HX - Past Medical History Medical history: cirrhosis, COPD, CVA, diabetes, hyperlipidemia, hypertension Additional medical history: chronic back pain Psychiatric history: no psych history - Past Surgical History Surgical History: orthopedic, other Additional surgical history: Left leg, right arm and hand. back surgery. neck surgery - Social History Smoking Status: Current every day smoker Smokeless Tobacco Status: No Alcohol use: heavy Drug use: opiates, methamphetamine, other - Family History Mother Adopted: No Family Member Ethnicity: Non- Living Status: Still Living Hx Family Cardiac Disorders: No Hx Family Respiratory Disorders: No Hx Family Cancer: Yes Hx Family GI Disorders: No Hx Family Endocrine Disorder: No Hx Family Neuromuscular Disorders: No Hx Family Neurologic Disorders: No Hx Family HEENT Disorders: No Hx Family Autoimmune Disorders: No Father Adopted: No Family Member Ethnicity: Non- Living Status: Hx Family Cardiac Disorders: No Hx Family Respiratory Disorders: No Hx Family Cancer: Yes Hx Family GI Disorders: No Hx Family Endocrine Disorder: No Hx Family Neuromuscular Disorders: No Hx Family Neurologic Disorders: No Hx Family HEENT Disorders: No Hx Family Autoimmune Disorders: No Internal Medicine - H&P: Meds Gabapentin [Neurontin] 800 mg PO TID 01/25/18 [History] Metformin HCl [Glucophage] 1,000 mg PO BIDWM 01/25/18 [History] Albuterol Neb [Proventil Neb] 3 ml IH QID PRN 12/28/18 [History] Amlodipine Besylate 5 mg PO DAILY 12/28/18 [History] Atorvastatin [Lipitor] 40 mg PO HS 12/28/18 [History] Cyclobenzaprine HCl 10 mg PO TID PRN 12/28/18 [History] Fluticasone/Vilanterol [Breo Ellipta 200-25 Mcg INH] 1 puff IH BID 12/28/18 [History] Lactulose [Enulose] 20 gm PO BID 12/28/18 [History] Metoclopramide HCl 5 mg PO Q8H PRN 12/28/18 [History] Tamsulosin HCl [Flomax] 0.4 mg PO DAILY 12/28/18 [History] Buprenorphine HCl/Naloxone HCl [Buprenorphin-Naloxon 8-2 mg Sl] 1.5 tab SL DAILY 05/03/19 [History] Trazodone HCl 50 mg PO HS PRN 05/03/19 [History] Allergy/AdvReac Type Severity Reaction Status Date / Time No Known Allergies Allergy Verified 12/28/18 21:47 All Systems PM: A 10-system review of systems was performed and is negative for pertinent findings except as documented above in the HPI. - Constitutional Vitals: Temp Pulse Resp BP Pulse Ox 100.8 F H 106 22 119/72 95 05/03/19 19:12 05/03/19 20:45 05/03/19 20:45 05/03/19 20:45 05/03/19 20:45 General appearance: Present: cooperative, A&O X 3, pleasant, no acute distress, answers questions appropriately Exam: - - Head Head exam: Present: normal inspection - Eye Eye exam: Present: EOMI, normal appearance - Respiratory Respiratory exam: Present: rales, rhonchi, wheezes. Absent: CTAB - Cardiovascular Cardiovascular exam: Present: RRR. Absent: diastolic murmur, systolic murmur - GI/Abdominal GI/Abdominal exam: Present: normal bowel sounds, soft. Absent: tenderness - Extremities Exam Extremities exam: Present: warm, radial pulses palpable and symmetrical. Absent: calf tenderness, pedal edema, tenderness - Neurological Exam Neurological exam: Present: no focal deficits, strengths equal and symetr throughout. Absent: motor sensory deficit, facial droop, speech deficit - Skin Skin exam: Present: dry, normal color, warm Internal Med - H&P Results - Labs CBC & Chem 7: 05/03/19 18:41 05/03/19 17:13 Labs: Short CBC 05/03/19 Range/Units 18:41 WBC 16.3 H (4.3-11.1) K/mcL Hgb 11.9 L (12.9-16.9) g/dL Hct 36.6 L (37.5-50.1) % Plt Count 357 (140-400) K/mcL Neutrophils # 14.3 H (1.6-8.9) K/mcL BMP 05/03/19 17:13 Sodium 133 L Potassium 4.8 Chloride 100 Carbon Dioxide 25 BUN 13 Creatinine 0.79 Glucose 111 H Calcium 10.1 Cardiac Enzymes 05/03/19 Range/Units 17:13 Troponin I < 0.03 (< 0.04) ng/mL Liver Function 05/03/19 Range/Units 17:13 Total Bilirubin 0.6 (0.3-1.0) mg/dL Direct Bilirubin 0.1 (0.0-0.2) mg/dL AST 19 (13-39) Units/L ALT 13 (7-52) Units/L Alkaline Phosphatase 94 (34-104) Units/L Albumin 4.2 (3.5-5.7) g/dL Urine 05/03/19 Range/Units 18:14 Urine Color Yellow (Yellow) Urine Clarity Clear (Clear) Urine pH 7.0 (5.0-8.0) pH Units Ur Specific [place] 1.014 (1.010-1.025) Urine Protein Negative (Neg-Trace) mg/dL Urine Glucose (UA) Normal (Normal) mg/dL - ABG Interpretation ABG results: 05/03/19 17:26 ABG pH 7.40 ABG pCO2 45 ABG pO2 107 H ABG HCO3 28 H ABG Total CO2 29 H ABG O2 Saturation 98 ABG Base Excess 3 - Impressions ITS Impressions Chest X-Ray 05/03/19 17:44 IMPRESSION: Bibasilar airspace disease suspicious for pneumonia. There may be at least a component of edema given few basilar peripheral septal lines. Correlation is recommended. D/ / Eleonora Pryor Cha, MD / Eleonora Pryor Cha, MD Interpreting Provider: Eleonora Pryor Cha, MD Head CT 05/03/19 18:00 IMPRESSION: No acute intracranial abnormality. Air-fluid levels within the maxillary sinuses may indicate acute paranasal sinus disease. D/ / 05/03/2019 18:12:15 Quirino Hoyt MD / talha Interpreting Provider: Quriino Hoyt MD - Assessment and Plan (1) Sepsis Current Visit: Yes Status: Acute Assessment and plan: Patient met sepsis criteria with elevated temperature, heart rate and respiratory rate. He also had elevated white blood count, and found to have pneumonia and urinary tract infection. Lactic acid however was not elevated. Management of pneumonia and urinary tract infection as below Continue to monitor for worsening signs of infection Qualifiers: Sepsis type: sepsis due to unspecified organism Sepsis acute organ dysfunction status: unspecified Qualified Code(s): A41.9 - Sepsis, unspecified organism (2) Pneumonia Current Visit: Yes Status: Acute Assessment and plan: Imaging reveals bilateral airspace disease. Patient also had been treated outpatient for pneumonia recently as well. Patient was started on Zosyn and vancomycin by the emergency department. Follow-up blood cultures Continue IV antibiotics Oxygen supplementation as needed Monitor for worsening signs of infection Qualifiers: Pneumonia type: due to unspecified organism Laterality: bilateral Lung location: unspecified part of lung Qualified Code(s): J18.9 - Pneumonia, unspecified organism (3) UTI (urinary tract infection) Current Visit: Yes Status: Acute Assessment and plan: Patient's urinalysis shows likely urinary tract infection. He also has some dysuria. He has had urinary tract infections in the past, most recently in December of this year which grew out Proteus mirabilis. This particular bacteria had multiple resistant antibiotics but was sensitive to Zosyn. Continue IV antibiotics Follow-up urine culture Monitor for worsening signs of infection Qualifiers: Urinary tract infection type: site unspecified Hematuria presence: without hematuria Qualified Code(s): N39.0 - Urinary tract infection, site not specified (4) COPD exacerbation Current Visit: No Status: Acute Assessment and plan: Patient's lung sounds are coarse and wheezy. Likely secondary to pneumonia and possible COPD as well. He has been given breathing treatments in the ER and steroids. Continue breathing treatments Continue IV steroids Treating pneumonia as above Oxygen supplementation as needed (5) Diabetes mellitus Current Visit: No Status: Chronic Assessment and plan: Patient is not an insulin dependent diabetic Monitor sugars ACHS Diabetic diet Low dose insulin sliding scale as needed Hold home meds. Qualifiers: Diabetes mellitus type: type 2 Diabetes mellitus superintendent container terminal insulin use: without superintendent container terminal use Diabetes mellitus complication status: with hyperglycemia Qualified Code(s): E11.65 - Type 2 diabetes mellitus with hyperglycemia (6) Tobacco abuse Current Visit: No Status: Chronic Assessment and plan: Nicotine patch (7) Polysubstance abuse Current Visit: No Status: Chronic Assessment and plan: Patient denies current use of IV drugs. He is on Suboxone. Patient does not have his medicine with him currently, will start him on Subutex while inpatient. Continue home meds at discharge (8) Cirrhosis Current Visit: Yes Status: Acute Assessment and plan: Patient has chronic cirrhosis, takes lactulose at home. Current ammonia level not elevated at 38. Continue lactulose Qualifiers: Hepatic cirrhosis type: unspecified hepatic cirrhosis Ascites presence: unspecified Qualified Code(s): K74.60 - Unspecified cirrhosis of liver (9) Alcohol use Current Visit: Yes Status: Acute Assessment and plan: Patient admits to drinking several beers daily. No current signs of withdrawal at this time. CIWA protocol playground monitor (10) Hypomagnesemia Current Visit: Yes Status: Acute Assessment and plan: Slightly low magnesium at 1.5. Potassium and calcium within normal limits Replete magnesium Recheck labs in the morning (11) Debility Current Visit: No Status: Chronic Assessment and plan: Patient has physical therapy coming to his home 2 times a week for strengthening and ambulation. Consult PT and OT while here in the hospital (12) DVT prophylaxis Current Visit: No Status: Acute Assessment and plan: SCDs - Time Spent With Patient Total time spent is greater than 50% in coordination of care (as documented) at patient's floor/unit and/or counseling patient:
[2019-05-03] MEDS ORDERED: *HR* LORazepam 2 MG/ML VIAL IVP PRN ×3 (23:21)
[2019-05-04] MEDS: Piperacillin/Tazobactam 3.375 GM in 0.9 % Sodium Chloride Mini Bag 100 ML IVPB SCH ×3 (00:36→16:13)
[2019-05-04] MEDS: 0.9 % Sodium Chloride 1,000 ML IVC SCH ×2 (00:36→06:07)
[2019-05-04] MEDS: MethylPREDNISolone 40 MG/ML VIAL IVP SCH ×4 (00:36→17:36)
[2019-05-04] MEDS: Ipratropium/Albuterol Neb 3 ML IH SCH ×4 (03:45→22:51)
[2019-05-04 04:27] LABS: Hematocrit 31.8 % (37.5-50.1); Mean Corpuscular HGB Conc 32.4 g/dL (31.6-35.5); Mean Corpuscular Volume 86.4 fL (83.0-100.0); Mean Platelet Volume 9.7 fL (9.4-12.4); Platelet Count 363 K/mcL (140-400); Red Blood Count 3.68 M/mcL (4.19-5.50); Red Cell Distribution Width 16.4 % (11.5-14.5); White Blood Count 22.4 K/mcL (4.3-11.1)
[2019-05-04 04:29] LABS: Hemoglobin 10.3 g/dL (12.9-16.9)
[2019-05-04 04:34] LABS: INR 1.1; Prothrombin Time 12.3 Seconds (9.4-12.1)
[2019-05-04 04:45] LABS: Alanine Aminotransferase 9 Units/L (7-52); Albumin 3.1 g/dL (3.5-5.7); Albumin/Globulin Ratio 1.1 (1.1-2.2); Alkaline Phosphatase 56 Units/L (34-104); Aspartate Amino Transferase 9 Units/L (13-39); BUN/Creatinine Ratio 16 (6-26); Bilirubin,Total 0.3 mg/dL (0.3-1.0); Blood Urea Nitrogen 12 mg/dL (8-23); Calcium 8.5 mg/dL (8.6-10.3); Carbon Dioxide 21 mEq/L (23-29); Chloride 105 mEq/L (98-107); Globulin 2.8 g/dL (2.4-3.5); Glucose 283 mg/dL (70-105); Magnesium 2.1 mg/dL (1.6-2.6); Osmolality,Calculated 288 (280-300); Phosphorous 2.4 mg/dL (2.7-4.5); Potassium 3.7 mEq/L (3.5-5.1); Sodium 134 mEq/L (136-145); Total Protein 5.9 g/dL (6.4-8.9); eGFR For African Americans > 60 (> 60); eGFR For Non-African Americans > 60 (> 60)
--- NOTE | 2019-05-04 08:14 | Internal Med Progress Note ---
<Leelee Marques - Last Filed: 05/04/19 12:33> Hospitalist Progress Note - Encounter Date of Encounter: 05/04/19 - Exam Vitals: Temp Pulse Resp BP Pulse Ox 98.3 F 85 18 124/80 95 05/04/19 07:28 05/04/19 07:28 05/04/19 07:28 05/04/19 07:28 05/04/19 07:28 - Assessment and Plan (1) Sepsis Current Visit: Yes Status: Acute (2) Pneumonia Current Visit: Yes Status: Acute (3) UTI (urinary tract infection) Current Visit: Yes Status: Acute (4) COPD exacerbation Current Visit: No Status: Acute (5) Diabetes mellitus Current Visit: No Status: Chronic (6) Tobacco abuse Current Visit: No Status: Chronic (7) Polysubstance abuse Current Visit: No Status: Chronic (8) Cirrhosis Current Visit: Yes Status: Acute (9) Alcohol use Current Visit: Yes Status: Acute (10) Hypomagnesemia Current Visit: Yes Status: Acute (11) Debility Current Visit: No Status: Chronic (12) DVT prophylaxis Current Visit: No Status: Acute - Time Spent with Patient Total time spent is greater than 50% in coordination of care (as documented) at patient's floor/unit and/or counseling patient: Internal Medicine: Result - Labs CBC & Chem 7: 05/04/19 03:28 05/04/19 03:28 Labs: Short CBC 05/03/19 05/04/19 Range/Units 18:41 03:28 WBC 16.3 H 22.4 H (4.3-11.1) K/mcL Hgb 11.9 L 10.3 L D (12.9-16.9) g/dL Hct 36.6 L 31.8 L (37.5-50.1) % Plt Count 357 363 (140-400) K/mcL Neutrophils # 14.3 H (1.6-8.9) K/mcL BMP 05/03/19 05/04/19 17:13 03:28 Sodium 133 L 134 L Potassium 4.8 3.7 Chloride 100 105 Carbon Dioxide 25 21 L BUN 13 12 Creatinine 0.79 0.77 Glucose 111 H 283 H Calcium 10.1 8.5 L Cardiac Enzymes 05/03/19 Range/Units 17:13 Troponin I < 0.03 (< 0.04) ng/mL Liver Function 05/03/19 05/04/19 Range/Units 17:13 03:28 Total Bilirubin 0.6 0.3 (0.3-1.0) mg/dL Direct Bilirubin 0.1 (0.0-0.2) mg/dL AST 19 9 L (13-39) Units/L ALT 13 9 (7-52) Units/L Alkaline Phosphatase 94 56 (34-104) Units/L Albumin 4.2 3.1 L (3.5-5.7) g/dL Urine 05/03/19 Range/Units 18:14 Urine Color Yellow (Yellow) Urine Clarity Clear (Clear) Urine pH 7.0 (5.0-8.0) pH Units Ur Specific Confluence 1.014 (1.010-1.025) Urine Protein Negative (Neg-Trace) mg/dL Urine Glucose (UA) Normal (Normal) mg/dL - ABG Interpretation ABG results: ABG ABG pH 7.40 pH Units (7.32-7.45) 05/03/19 17:26 ABG pCO2 45 mmHg (35-45) 05/03/19 17:26 ABG pO2 107 mmHg (85-104) H 05/03/19 17:26 ABG O2 Saturation 98 % (95-98) 05/03/19 17:26 PT/INR, D-dimer PT 12.3 Seconds (9.4-12.1) H 05/04/19 03:28 - Impressions Impressions Chest X-Ray 05/03/19 17:44 IMPRESSION: Bibasilar airspace disease suspicious for pneumonia. There may be at least a component of edema given few basilar peripheral septal lines. Correlation is recommended. D/ / Eleonora Pryor Cha, MD / Eleonora Pyror Cha, MD Interpreting Provider: Eleonora Pryor Cha, MD Head CT 05/03/19 18:00 IMPRESSION: No acute intracranial abnormality. Air-fluid levels within the maxillary sinuses may indicate acute paranasal sinus disease. D/ / 05/03/2019 18:12:15 Quirino Hoyt MD / talha Interpreting Provider: Quirino Hoyt MD Consult Discharge Plan - Plan Referrals: Gerard Srivastava MD [Primary Care Provider] - (Called and left message with name and birthdate..) - Attending Attestation I examined this patient and my medical decision-making was reviewed with the Resident Physician Dr Gunn. I agree with the documented findings, disposition and treatment plan as described except to the extent set forth below. Mr Rizzo is admitted with sepsis, pna and UTI awake, no family present, at first appears oriented then clear he remains confused, quickly belligerent and swearing about repeatedly being in the hospital. He admits to productive cough previously yellow sputum, now white/clear. Notes chronic utis and intermittent dysuria and supra pubic pain at home. denies s/s of etoh withdrawal, denies tremors, sweats or palpitations. Oriented to person and city, thinks its 1998 or 1999. Does not know month. Wanting to leave hospital and informed due to confusion he would not be able to sign himself out, he may consider having his sign him out though he is angry she brought him to hospital in first place. Then stating he will stay only til Tuesday gen- alert, awake,appears stated age eyes- pupils equal round, no scleral icterus cv- reg rate and rhythm, normal s1,s2 lungs- ctabl, no wheezing, rhonchi or crackles, normal resp effort on room air abd- soft, non tender, +distended, + bs, no fluid wave skin- warm, dry, no jaundice neuro- AAOxperson, city, not date or year, CN grossly intact, strength 5/5 throughout, no focal neuro deficits, no hand tremor sepsis 2/2 pna and UTI- cx pending, IV abx and IVF PNA, organism uk- attempt to ID org, Zosyn + Vanc, check MRSA screen, if neg can dc vanc, nebs UTI w hx recurrent UTIs and previously proteus- ucx pending, Zosyn Acute Encephalopathy suspected Infectious (sepsis, pna, uti) as no metabolic, other neurologic, cardiac cause identified; likely complicated by prescribed home med regimen with multiple sedating meds- cont sepsis tx, reduce IV steroids, cont to monitor, sitter if needed, avoid over sedation, contact for home baseline mentation etoh abuse, NOT in active etoh w/d- cont ciwa, tele cirrhosis, does not appear decompensated at this time, AMS likely related to infection as ammonia level normal and no clinical s/s of SBP or fluid overload- cont lactulose, monitor bms, may have to increase dose if not at goal hypophosphatemia- PO repletion and monitor <Wang Gunn S - Last Filed: 05/04/19 19:17> Hospitalist Progress Note - Encounter Date of Encounter: 05/04/19 Time of Encounter: 08:14 - Subjective Interval History: Mr. Rizzo is a 63-year-old male with past medical history of cirrhosis, prior CVA with residual deficit, diabetes, hypertension, COPD, chronic back pain, Suboxone use who is admitted to our service for sepsis secondary to pneumonia and UTI Yesterday, per the patient's , she was slumped in a chair and was minimally responsive. The also states that he has been having a worsening cough with increased sputum production for the last few days. When asked about the episode yesterday, the patient states he was "just trying to take a nap." On arrival to the hospital, however, he was found to have an elevated temperature at 102.2, heart rate was elevated to 135, urinalysis was positive for UTI, and imaging suggested pneumonia. Patient met sepsis criteria and was admitted. This morning He reports he is doing well, feels fine, he states that his cough is very mild, not significantly different from his usual smoker's cough, and productive of normal amounts of clear sputum. He reports some dysuria. Also reports weakness in both hands, which is his norm, and is not worse than usual. Also reports abdominal distention, again, not different from his baseline He denies any chest pain, fevers or chills, nausea, vomiting, lightheadedness, dizziness, trouble swallowing or speaking, abdominal pain, hematemesis, hematochezia, melena Past medical history as stated above. Residual deficits from prior stroke include left hand weakness. 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 Head: Normocephalic, atraumatic Eyes: EOMI, no scleral icterus or conjunctival pallor ENT: Mucous membranes moist, no oropharyngeal erythema CV: S1-S2 present, regular at a rate of approx 90, no murmurs rubs or gallops EXT: Grossly intact motor strength in all 4 extremities, no lower extremity edema, no distal cyanosis or pallor Skin: Warm, dry, intact, no rashes or lesions noted Neuro: Cranial nerves II-XII grossly intact, no focal neurologic deficits Psych: normal mood and affect, Answers questions with intact judgment, appropriate insight, and linear thought Pulm: coarse breath sounds bilaterally, worse in the bases, with faint breath sounds at both apices, not tachypneic, no respiratory distress, no increased work of breathing Abd: Markedly distended with numerous visible veins present scattered across the abdomen, fluid wave present. Patient does not have any tenderness to palpation, no peritoneal signs, no guarding. abdomen is soft, no hernias appreciated NOTE: During my exam, the patient was cooperative and pleasant. On discussion with Dr. Doyle, she found him to be confused, unable to state the correct year, and belligerent. I returned to the room around 17:30 to reassess the patient. On repeat exam he was slightly confused, very irritable, struggled to identify the correct year, but eventually was able to recall it was 2018. He was also oriented to self and place. - Assessment and Plan (1) UTI (urinary tract infection) Current Visit: Yes Status: Acute Assessment and Plan: symptomatic UTI Dx confirmed by UA Preliminary cultures show Gram (-) rods H/o UTI with MDR Proteus sensitive to zosyn * Legionella and Strep Urine antigens ordered * Zosyn IV * Continue to monitor renal function with AM metabolic panel (2) Pneumonia Current Visit: Yes Status: Acute Assessment and Plan: Bibasilar airspace disease on CXR at admit increased sputum production reported Pt denies cough, SOB and worsening sputum production at this time h/o infection with MRSA * O2 by NC PRN to maintain saturation > 91% (pt's baseline seems to be 93-95, at his baseline now) * Vancomycin for coverage of MRSA, Zosyn for UTI also covering other common pathogens * Sputum cultures (3) Altered mental status Current Visit: Yes Status: Acute Assessment and Plan: Patient's original complaint was decreased responsiveness He has had waxing and waning confusion, at times pleasant and oriented, at times belligerent and unable to name the correct year His ammonia level was 38 yesterday In the context of suspected pneumonia and confirmed UTI, alterations in mental status likely represent delirium secondary to infection No identifiable new neurologic deficits, Pt has no headache and is not on blood thinners - CT head is not needed at this time * Patient DOES NOT HAVE CAPACITY TO MAKE DECISIONS. see event note by Dr Doyle today * Increase lactulose to TID tomorrow, as pt denies any BM today * 25 mg trazodone tonight (pt takes 50 at home) * Repeat ammonia in the morning * Nicotine patch ordered to resolve episode of agitation (4) Cirrhosis Current Visit: Yes Status: Chronic Assessment and Plan: Cirrhosis with ascites and periodic episodes of AMS. No abdominal pain or fever. see AMS above Patient without shortness of breath Ammonia level 38, AST/ALT/AlkPhos normal Total protein and albumin slightly low PT high, INR normal * Avoid hepatotoxins as possible * Hepatic dosing of meds (5) Sepsis Current Visit: Yes Status: Acute Assessment and Plan: Temp 102.2 on admit. 98.3 this morning HR 135 on admit, 85 this morning * source control with Vanc and Zosyn * continue monitoring hemodynamic status (6) Alcohol use Current Visit: Yes Status: Acute Assessment and Plan: Pt's altered mental status not accompanied by tremulousness, diaphoresis, nausea, or vomiting. His agitation and anxiety are redirectable and transient unclear if AMS is confusion or is hallucinating, but in the absence of other sxs, AMS is more likely due to his infection currently between 24 and 48 hours since admission to hospital * CIWA protocol in place * reassess AM (7) Diabetes mellitus Current Visit: No Status: Chronic Assessment and Plan: * Accuchecks ACHS * SSI (8) Tobacco abuse Current Visit: No Status: Chronic Assessment and Plan: * Nicotine patch ordered (9) COPD (chronic obstructive pulmonary disease) Current Visit: No Status: Acute Assessment and Plan: Pt not reporting shortness of breath O2 saturation appears to be at baseline * IV steroids * Duonebs QIDR * Albuterol Q2HR PRN DVT Prophylaxis: SCDs - Summary of Assessment and Plan Summary of Assessment and Plan: * PINK SLIP - PT DOES NOT HAVE DECISION MAKING CAPACITY * IV Vanc/Zosyn * IV steroids, Nebs * CIWA, Lac * Sputum cultures ordered * Urine cultures pending/antigens ordered * Nicotine patch - Time Spent with Patient Total time spent is greater than 50% in coordination of care (as documented) at patient's floor/unit and/or counseling patient: Plan of Care Discussed with: patient Internal Medicine: Result - Labs CBC & Chem 7: 05/04/19 03:28 05/04/19 03:28 Labs: Short CBC 05/03/19 05/04/19 Range/Units 18:41 03:28 WBC 16.3 H 22.4 H (4.3-11.1) K/mcL Hgb 11.9 L 10.3 L D (12.9-16.9) g/dL Hct 36.6 L 31.8 L (37.5-50.1) % Plt Count 357 363 (140-400) K/mcL Neutrophils # 14.3 H (1.6-8.9) K/mcL BMP 05/03/19 05/04/19 17:13 03:28 Sodium 133 L 134 L Potassium 4.8 3.7 Chloride 100 105 Carbon Dioxide 25 21 L BUN 13 12 Creatinine 0.79 0.77 Glucose 111 H 283 H Calcium 10.1 8.5 L Cardiac Enzymes 05/03/19 Range/Units 17:13 Troponin I < 0.03 (< 0.04) ng/mL Liver Function 05/03/19 05/04/19 Range/Units 17:13 03:28 Total Bilirubin 0.6 0.3 (0.3-1.0) mg/dL Direct Bilirubin 0.1 (0.0-0.2) mg/dL AST 19 9 L (13-39) Units/L ALT 13 9 (7-52) Units/L Alkaline Phosphatase 94 56 (34-104) Units/L Albumin 4.2 3.1 L (3.5-5.7) g/dL Urine 05/03/19 Range/Units 18:14 Urine Color Yellow (Yellow) Urine Clarity Clear (Clear) Urine pH 7.0 (5.0-8.0) pH Units Ur Specific Confluence 1.014 (1.010-1.025) Urine Protein Negative (Neg-Trace) mg/dL Urine Glucose (UA) Normal (Normal) mg/dL - ABG Interpretation ABG results: ABG ABG pH 7.40 pH Units (7.32-7.45) 05/03/19 17:26 ABG pCO2 45 mmHg (35-45) 05/03/19 17:26 ABG pO2 107 mmHg (85-104) H 05/03/19 17:26 ABG O2 Saturation 98 % (95-98) 05/03/19 17:26 PT/INR, D-dimer PT 12.3 Seconds (9.4-12.1) H 05/04/19 03:28 - Impressions Impressions Chest X-Ray 05/03/19 17:44 IMPRESSION: Bibasilar airspace disease suspicious for pneumonia. There may be at least a component of edema given few basilar peripheral septal lines. Correlation is recommended. D/ / Eleonora Pryor Cha, MD / Eleonora Pryor Cha, MD Interpreting Provider: Eleonora Pryor Cha, MD Head CT 05/03/19 18:00 IMPRESSION: No acute intracranial abnormality. Air-fluid levels within the maxillary sinuses may indicate acute paranasal sinus disease. D/ / 05/03/2019 18:12:15 uQirino Hoyt MD / talha Interpreting Provider: Quirino Hoyt MD <[email or web address] M - Last Filed: 05/04/19 12:33> (1) Sepsis Qualifiers: Sepsis type: sepsis due to unspecified organism Sepsis acute organ dysfunction status: unspecified Qualified Code(s): A41.9 - Sepsis, unspecified organism (2) Pneumonia Qualifiers: Pneumonia type: due to unspecified organism Laterality: bilateral Lung location: unspecified part of lung Qualified Code(s): J18.9 - Pneumonia, unspecified organism (3) UTI (urinary tract infection) Qualifiers: Urinary tract infection type: site unspecified Hematuria presence: without hematuria Qualified Code(s): N39.0 - Urinary tract infection, site not specified (5) Diabetes mellitus Qualifiers: Diabetes mellitus type: type 2 Diabetes mellitus care home insulin use: without care home use Diabetes mellitus complication status: with hyperglycemia Qualified Code(s): E11.65 - Type 2 diabetes mellitus with hyperglycemia (8) Cirrhosis Qualifiers: Hepatic cirrhosis type: unspecified hepatic cirrhosis Ascites presence: unsp ecified Qualified Code(s): K74.60 - Unspecified cirrhosis of liver <Wang Gunn S - Last Filed: 05/04/19 19:17> (1) UTI (urinary tract infection) Qualifiers: Urinary tract infection type: site unspecified Hematuria presence: without hematuria Qualified Code(s): N39.0 - Urinary tract infection, site not specified (2) Pneumonia Qualifiers: Pneumonia type: due to unspecified organism Laterality: bilateral Lung location: unspecified part of lung Qualified Code(s): J18.9 - Pneumonia, unspecified organism (3) Altered mental status Qualifiers: Altered mental status type: unspecified Qualified Code(s): R41.82 - Altered mental status, unspecified (4) Cirrhosis Qualifiers: Hepatic cirrhosis type: unspecified hepatic cirrhosis Ascites presence: unspecified Qualified Code(s): K74.60 - Unspecified cirrhosis of liver (5) Sepsis Qualifiers: Sepsis type: sepsis due to unspecified organism Sepsis acute organ dysfunction status: unspecified Qualified Code(s): A41.9 - Sepsis, unspecified organism (7) Diabetes mellitus Qualifiers: Diabetes mellitus type: type 2 Diabetes mellitus care home insulin use: without care home use Diabetes mellitus complication status: with hyperglycemia Qualified Code(s): E11.65 - Type 2 diabetes mellitus with hyperglycemia (9) COPD (chronic obstructive pulmonary disease) Qualifiers: COPD type: unspecified COPD Qualified Code(s): J44.9 - Chronic obstructive pulmonary disease, unspecified
[2019-05-04] MEDS: Gabapentin 400 MG CAPSULE PO SCH ×3 (08:21→21:36)
[2019-05-04] MEDS: *HR* Buprenorphine HCl 8 MG TAB.SUBL SL SCH (08:21)
[2019-05-04] MEDS: Insulin LISPRO 300 UNITS/3 ML VIAL SQ SCH ×4 (08:22→21:38)
[2019-05-04] MEDS: amLODIPine 5 MG TABLET PO SCH (08:22)
[2019-05-04] MEDS ORDERED: Lactulose Oral Soln 20 GM/30 ML UDC PO SCH (09:00)
--- NOTE | 2019-05-04 10:23 | Event Note ---
Date of Encounter: 05/04/19 Time of Encounter: 10:00 Pt requires MEDICAL HOLD. He may not sign himself out of hospital AMA due to altered mentation most likley secondary to sepsis with pna and recurrent UTI. He requires continued inpt medical care due to risk of worsened sepsis or . When he returns to his baseline mentation and is oriented to situation and time, as he currently is not, this medical hold will be lifted.
[2019-05-04] MEDS: Thiamine (B-1) 100 MG, Folic Acid 1 MG, MVI, adult with vitamin K 10 ML in 0.9 % Sodi... IVPB SCH (17:36)
[2019-05-04] MEDS ORDERED: Nicotine 21 MG PATCH.TD24 TD SCH (17:58)
[2019-05-04] MEDS: Nicotine 21 MG PATCH.TD24 TD PRN (18:15)
--- NOTE | 2019-05-04 18:19 | Event Note ---
Date of Encounter: 05/04/19 Time of Encounter: 18:07 I was paged by the nurse, who stated the patient was agitated, trying to leave, and security had been called to bedside. When I arrived, data security consultant was talking to the patient, who is seated on the bed. Patient appeared agitated, and was talking about a conversation with me that never happened, stating "you said that after you did that test, I could go outside and smoke." When he was told he could not go outside and smoke, he became agitated and decided he wanted to leave the hospital altogether. The patient's was in the room, and I stepped out into the pina to speak with her. she stated these episodes happen every once in a while, where he becomes agitated and "starts hallucinating." I inquired what that meant, if it meant he saw things that were not there talked about events that had not happened, she said both have occurred in the past., She also states that he occasionally has these episodes without agitation as well. I informed her he did not have capacity to make decisions for himself in this mental state, and briefly explained that he was being treated for very serious infections, and would be at a very large risk of worsening of his situation and possibly if he were to go home at this time. She agreed, stating that she wanted us to keep him and continue treatment for his infections. While speaking with the , the nurse and a data security consultant, who had prior history with the patient, were able to talk him down. He agreed to stay, if we would get him a nicotine patch. Nicotine patch for verbal order was given, patient is still irritable but is no longer trying to get out of bed, or trying to leave the hospital.
[2019-05-04] MEDS: traZODone 50 MG TABLET PO SCH (21:36)
[2019-05-04] MEDS: Lactulose Oral Soln 20 GM/30 ML UDC PO SCH (21:36)
[2019-05-05] MEDS: Piperacillin/Tazobactam 3.375 GM in 0.9 % Sodium Chloride Mini Bag 100 ML IVPB SCH ×3 (01:31→16:18)
[2019-05-05] MEDS: Ipratropium/Albuterol Neb 3 ML IH SCH ×4 (03:54→23:34)
[2019-05-05] MEDS: MethylPREDNISolone 40 MG/ML VIAL IVP SCH ×2 (05:22→16:20)
[2019-05-05 05:42] LABS: Basophils % 0.1 %; Hematocrit 29.4 % (37.5-50.1); Hemoglobin 9.7 g/dL (12.9-16.9); Immature Granulocytes % 0.7 % (0-4); Lymphocytes % 5.6 %; Mean Corpuscular Hemoglobin 28.1 pg (28.0-33.3); Mean Corpuscular Volume 85.2 fL (83.0-100.0); Mean Platelet Volume 9.6 fL (9.4-12.4); Monocytes # 0.7 K/mcL (0.0-1.3); Monocytes % 3.8 %; Neutrophils # 16.8 K/mcL (1.6-8.9); Platelet Count 400 K/mcL (140-400); Red Blood Count 3.45 M/mcL (4.19-5.50); Red Cell Distribution Width 16.6 % (11.5-14.5); Segmented Neutrophils % 89.8 %; White Blood Count 18.7 K/mcL (4.3-11.1)
[2019-05-05 05:53] LABS: Phosphorous 1.8 mg/dL (2.7-4.5)
[2019-05-05 05:54] LABS: Alanine Aminotransferase 8 Units/L (7-52); Albumin 3.1 g/dL (3.5-5.7); Albumin/Globulin Ratio 1.1 (1.1-2.2); Alkaline Phosphatase 55 Units/L (34-104); Aspartate Amino Transferase 9 Units/L (13-39); BUN/Creatinine Ratio 17 (6-26); Bilirubin,Total 0.3 mg/dL (0.3-1.0); Blood Urea Nitrogen 12 mg/dL (8-23); Calcium 8.9 mg/dL (8.6-10.3); Carbon Dioxide 26 mEq/L (23-29); Chloride 103 mEq/L (98-107); Globulin 2.8 g/dL (2.4-3.5); Glucose 302 mg/dL (70-105); Osmolality,Calculated 297 (280-300); Potassium 3.1 mEq/L (3.5-5.1); Sodium 138 mEq/L (136-145); Total Protein 5.9 g/dL (6.4-8.9); eGFR For African Americans > 60 (> 60); eGFR For Non-African Americans > 60 (> 60)
--- NOTE | 2019-05-05 06:39 | Electrocardiograph Report ---
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
[2019-05-05] MEDS ORDERED: Potassium Phosphate 44 MEQ in 0.9 % Sodium Chloride 250 ML IVPB ONE (08:11)
[2019-05-05 08:26] LABS: Magnesium 1.7 mg/dL (1.6-2.6)
--- NOTE | 2019-05-05 08:40 | Internal Med Progress Note ---
Hospitalist Progress Note - Encounter Date of Encounter: 05/05/19 Time of Encounter: 08:40 - Subjective Interval History: Mr. Rizzo is a 63-year-old male admitted to our service with altered mental status, UTI, pneumonia. Past medical history significant for cirrhosis, alcohol abuse, Suboxone use, CVA with residual upper extremity deficit, COPD, diabetes, chronic back pain Today Mr. Rizzo is much more pleasant than when I last saw him yesterday, resting comfortably in the bed and watching TV. He reports no complaints at this time. he is oriented to self and date, however believes we are in either [place] or [place] but he cannot remember which. He continues to be confused, mentioning during our interview that he wanted to go to his 's room to see her, though she is not in the hospital. His nurse states that when she saw him this morning he asked if she was the one who threw a light into his room, and complained that it was too bright and hurt his eyes. He denies any headaches, blurry vision, double vision, trouble swallowing or speaking. Also denies chest pain, shortness of breath, cough, sputum production nausea, vomiting, abdominal pain, new numbness/tingling/weakness anywhere. Denies any burning or discomfort with urination, though he does remember burning before coming to the hospital - Exam Vitals: Temp Pulse Resp BP Pulse Ox 97.6 F 98 18 137/73 95 05/05/19 07:20 05/05/19 07:20 05/05/19 07:20 05/05/19 07:20 05/05/19 07:20 Exam: Gen: Awake and alert, no acute distress, slightly disheveled and dressed in a hospital gown. Head: Normocephalic, atraumatic Eyes: EOMI, no scleral icterus or conjunctival pallor ENT: Mucous membranes moist, no oropharyngeal erythema CV: S1-S2 present, regular at a rate of approx 90, no murmurs rubs or gallops EXT: Significant weakness bilateral hands, with chronic contractures, no lower extremity edema, no distal cyanosis or pallor Skin: Warm, dry, intact, no rashes or lesions noted Neuro: Cranial nerves II-XII grossly intact, no new focal neurologic deficits Psych: normal mood and affect, Thought processes intact, but thought content centering on events that have not, in actuality, occurred. Hallucinations vs. delusions focus primarily on visual and situational fallacies Pulm: Breath sounds significantly increased from yesterday no wheezes rales or rhonchi noted, not tachypneic, no respiratory distress, no increased work of breathing Abd: Markedly distended with numerous visible veins present scattered across the abdomen, fluid wave present. Patient does not have any tenderness to palpation, no peritoneal signs, no guarding. abdomen is soft, no hernias appreciated - abdominal exam unchanged - Assessment and Plan (1) UTI (urinary tract infection) Current Visit: Yes Status: Acute Assessment and Plan: Cultures returned MDR Proteus sensitive to Zosyn UTI symptoms remitting Patient is eating and drinking fine BUN/Creat WNL * Continue IV Zosyn * By mouth fluids, (2) Pneumonia Current Visit: Yes Status: Acute Assessment and Plan: Significant clinical improvement, with auscultatory findings resolved. No subjective shortness of breath, cough, sputum production O2 sat at patient's baseline, 94-95% Nasal MRSA swab positive * Continue vancomycin * Continue to monitor pulse ox (3) Altered mental status Current Visit: Yes Status: Acute Assessment and Plan: Mental status the same or very slightly worse than yesterday Mood, however, is significantly improved [place] slip remains in place, patient does not have decision-making capacity * Anticipate resolution of AMS with infection control * Consult infectious disease for MDRO in urine (4) Cirrhosis Current Visit: Yes Status: Chronic Assessment and Plan: Ammonia improved to 28 from 38 Hepatic encephalopathy is not the cause of the patient's altered mental status No signs or symptoms of SBP, though significant ascites present Coags have been normal Serum proteins are low * Continue lactulose * Continue diabetic diet (5) Sepsis Current Visit: Yes Status: Acute Assessment and Plan: Sepsis present on admission Patient currently meeting 0 SIRS criteria SIRS, Sepsis, and Septic Shock Criteria from [email or web address] on 05/05/2019 RESULT SUMMARY: This patient does not meet SIRS criteria. For other causes of shock, see the Next Steps section. INPUTS: Temp >38C (100.4F) or > 0 = No Heart rate > 90 > 0 = No (80 at last check) Respiratory rate > 20 or Adi? > 0 = No WBC > 12,000/mm, 10% bands > 1 = Yes Suspected or present source of infection > 1 = Yes Lactic acidosis, SBP > 0 = No Severe sepsis with hypotension, despite adequate fluid resuscitation > 0 = No Evidence of ? 2 organs failing > 0 = No (6) Alcohol use Current Visit: Yes Status: Acute Assessment and Plan: Altered mental status unchanged Patient is not tremulous, nauseous, vomiting, diaphoretic, anxious, agitated. Patient's CIWA score was 8 overnight Most recent CIWA was 5 Nursing will notify when next CIWA score is completed * Ativan PRN for withdrawal * Continue CIWA protocol (7) Diabetes mellitus Current Visit: No Status: Chronic Assessment and Plan: * Diabetic diet * SSI (8) Tobacco abuse Current Visit: No Status: Chronic Assessment and Plan: * Nicotine patch (9) COPD (chronic obstructive pulmonary disease) Current Visit: No Status: Acute Assessment and Plan: Auscultation of patient's lungs significantly improved from admission Patient denies cough/sputum production Patient is afebrile * Begin tapering steroids * Continue nebulizer treatments (10) Anemia Current Visit: Yes Status: Acute Assessment and Plan: Iron panel today showed low iron, low saturation and low transferrin Called pharmacy to consult about need for IV iron infusions, concerned that lactulose may inhibit absorption of oral iron repletion * Per pharmacy's recommendations, we will initiate oral iron supplementation, to be given in between doses of lactulose (11) Hypophosphatasia Current Visit: Yes Status: Acute Assessment and Plan: * Potassium phosphate ordered (12) Hypokalemia Current Visit: Yes Status: Acute Assessment and Plan: * Potassium citrate ordered DVT Prophylaxis: SCDs - Summary of Assessment and Plan Summary of Assessment and Plan: * PINK SLIP, PATIENT DOES NOT HAVE CAPACITY FOR DECISION MAKING * Urine cultures resulted, consult ID, continue Zosyn * Continue CIWA, lactulose * Diabetic diet, glucose checks, SSI * Repletion of electrolytes imbalances * Ferrous sulfate twice a day with meals - Time Spent with Patient Total time spent is greater than 50% in coordination of care (as documented) at patient's floor/unit and/or counseling patient: Plan of Care Discussed with: family (Phone call placed to patient's , she is in agreement with plan to keep him in the hospital for treatment) Internal Medicine: Result - Labs CBC & Chem 7: 05/05/19 05:20 05/05/19 05:20 Labs: Short CBC 05/05/19 Range/Units 05:20 WBC 18.7 H (4.3-11.1) K/mcL Hgb 9.7 L (12.9-16.9) g/dL Hct 29.4 L (37.5-50.1) % Plt Count 400 (140-400) K/mcL Neutrophils # 16.8 H (1.6-8.9) K/mcL BMP 05/05/19 05:20 Sodium 138 Potassium 3.1 L Chloride 103 Carbon Dioxide 26 BUN 12 Creatinine 0.69 L Glucose 302 H Calcium 8.9 Liver Function 05/05/19 Range/Units 05:20 Total Bilirubin 0.3 (0.3-1.0) mg/dL AST 9 L (13-39) Units/L ALT 8 (7-52) Units/L Alkaline Phosphatase 55 (34-104) Units/L Albumin 3.1 L (3.5-5.7) g/dL - ABG Interpretation ABG results: ABG ABG pH 7.40 pH Units (7.32-7.45) 05/03/19 17:26 ABG pCO2 45 mmHg (35-45) 05/03/19 17:26 ABG pO2 107 mmHg (85-104) H 05/03/19 17:26 ABG O2 Saturation 98 % (95-98) 05/03/19 17:26 PT/INR, D-dimer PT 12.3 Seconds (9.4-12.1) H 05/04/19 03:28 Consult Discharge Plan - Plan Referrals: Gerard Srivastava MD [Primary Care Provider] - (Called and left message with name and birthdate..) (1) UTI (urinary tract infection) Qualifiers: Urinary tract infection type: site unspecified Hematuria presence: without hematuria Qualified Code(s): N39.0 - Urinary tract infection, site not specified (2) Pneumonia Qualifiers: Pneumonia type: due to unspecified organism Laterality: bilateral Lung location: unspecified part of lung Qualified Code(s): J18.9 - Pneumonia, unspecified organism (3) Altered mental status Qualifiers: Altered mental status type: unspecified Qualified Code(s): R41.82 - Altered mental status, unspecified (4) Cirrhosis Qualifiers: Hepatic cirrhosis type: unspecified hepatic cirrhosis Ascites presence: unspecified Qualified Code(s): K74.60 - Unspecified cirrhosis of liver (5) Sepsis Qualifiers: Sepsis type: sepsis due to unspecified organism Sepsis acute organ dysfunction status: unspecified Qualified Code(s): A41.9 - Sepsis, unspecified organism (7) Diabetes mellitus Qualifiers: Diabetes mellitus type: type 2 Diabetes mellitus intermediate insulin use: without intermediate use Diabetes mellitus complication status: with hyperglycemia Qualified Code(s): E11.65 - Type 2 diabetes mellitus with hyperglycemia (9) COPD (chronic obstructive pulmonary disease) Qualifiers: COPD type: unspecified COPD Qualified Code(s): J44.9 - Chronic obstructive pulmonary disease, unspecified (10) Anemia Qualifiers: Anemia type: iron deficiency Iron deficiency anemia type: unspecified iron deficiency Qualified Code(s): D50.9 - Iron deficiency anemia, unspecified
[2019-05-05] MEDS: Insulin LISPRO 300 UNITS/3 ML VIAL SQ SCH ×4 (08:54→20:08)
[2019-05-05] MEDS: Lactulose Oral Soln 20 GM/30 ML UDC PO SCH ×3 (08:55→20:08)
[2019-05-05] MEDS: Gabapentin 400 MG CAPSULE PO SCH (08:55)
[2019-05-05] MEDS: Pantoprazole 40 MG VIAL IVP SCH (08:55)
[2019-05-05] MEDS: *HR* Buprenorphine HCl 8 MG TAB.SUBL SL SCH (08:57)
[2019-05-05] MEDS: amLODIPine 5 MG TABLET PO SCH (08:57)
--- NOTE | 2019-05-05 15:13 | Event Note ---
Date of Encounter: 05/05/19 Time of Encounter: 10:30 to serve as attending attestation pending completion of resident daily prog note I examined this patient and my medical decision-making was reviewed with the Resident Physician Dr Gunn. I agree with the documented findings, disposition and treatment plan as described except to the extent set forth below. Mr Rizzo is admitted with sepsis, pna and UTI awake, no family present, cough improving, denies dysuria. more calm today. answers questions pertainging to how he feels appropriately but remains disoriented to place and time gen- alert, awake,appears stated age cv- reg rate and rhythm, normal s1,s2 lungs- ctabl, no wheezing, rhonchi or crackles, normal resp effort on room air skin- warm, dry, no jaundice neuro- AAOxperson, CN grossly intact, strength 5/5 throughout, no focal neuro deficits, no hand tremor sepsis 2/2 pna and UTI- resolved- cont IV abx PNA, organism uk- Zosyn + Vanc UTI w hx recurrent UTIs- ucx reviewed and MDR Proteus- cont Zosyn, c/s ID Acute Encephalopathy suspected Infectious (sepsis, pna, uti) as no metabolic, other neurologic, cardiac cause identified; likely complicated by prescribed home med regimen with multiple sedating meds - reduce IV steroids, hold gabapentin and trazadone cirrhosis, does not appear decompensated, AMS likely related to infection as ammonia level normal and no clinical s/s of SBP or fluid overload- will increase home lactulose as not at goal bms for med/dx hypophosphatemia- IV repletion and monitor further dx as noted by resident
[2019-05-05] MEDS: Nicotine 21 MG PATCH.TD24 TD PRN (18:28)
[2019-05-05] MEDS: Thiamine (B-1) 100 MG, Folic Acid 1 MG, MVI, adult with vitamin K 10 ML in 0.9 % Sodi... IVPB SCH (20:29)
[2019-05-06] MEDS: Piperacillin/Tazobactam 3.375 GM in 0.9 % Sodium Chloride Mini Bag 100 ML IVPB SCH ×3 (00:34→15:21)
[2019-05-06] MEDS ORDERED: Gabapentin 400 MG CAPSULE PO ONE (01:10)
[2019-05-06 04:09] LABS: Basophils % 0.1 %; Hematocrit 29.8 % (37.5-50.1); Hemoglobin 9.8 g/dL (12.9-16.9); Immature Granulocytes % 0.8 % (0-4); Lymphocytes # 1.9 K/mcL (0.6-4.6); Mean Corpuscular HGB Conc 32.9 g/dL (31.6-35.5); Mean Corpuscular Hemoglobin 28.3 pg (28.0-33.3); Mean Corpuscular Volume 86.1 fL (83.0-100.0); Mean Platelet Volume 9.1 fL (9.4-12.4); Monocytes % 5.3 %; Neutrophils # 15.5 K/mcL (1.6-8.9); Platelet Count 403 K/mcL (140-400); Red Blood Count 3.46 M/mcL (4.19-5.50); Segmented Neutrophils % 83.8 %; White Blood Count 18.5 K/mcL (4.3-11.1)
[2019-05-06] MEDS: Ipratropium/Albuterol Neb 3 ML IH SCH ×4 (04:24→22:01)
[2019-05-06 04:27] LABS: BUN/Creatinine Ratio 13 (6-26); Blood Urea Nitrogen 9 mg/dL (8-23); Carbon Dioxide 26 mEq/L (23-29); Chloride 106 mEq/L (98-107); Glucose 226 mg/dL (70-105); Osmolality,Calculated 294 (280-300); Potassium 3.6 mEq/L (3.5-5.1); Sodium 139 mEq/L (136-145); eGFR For African Americans > 60 (> 60); eGFR For Non-African Americans > 60 (> 60)
[2019-05-06 04:28] LABS: Magnesium 1.9 mg/dL (1.6-2.6); Phosphorous 1.8 mg/dL (2.7-4.5)
[2019-05-06] MEDS: MethylPREDNISolone 40 MG/ML VIAL IVP SCH (05:54)
--- NOTE | 2019-05-06 08:16 | Internal Med Progress Note ---
<Leelee Marques - Last Filed: 05/06/19 12:13> Hospitalist Progress Note - Encounter Date of Encounter: 05/06/19 - Exam Vitals: Temp Pulse Resp BP Pulse Ox 97.8 F 94 16 130/75 95 05/06/19 11:42 05/06/19 11:42 05/06/19 11:42 05/06/19 11:42 05/06/19 11:42 - Assessment and Plan (1) Sepsis Current Visit: Yes Status: Acute (2) Pneumonia Current Visit: Yes Status: Acute (3) UTI (urinary tract infection) Current Visit: Yes Status: Acute (4) COPD exacerbation Current Visit: No Status: Acute (5) Diabetes mellitus Current Visit: No Status: Chronic (6) Tobacco abuse Current Visit: No Status: Chronic (7) Polysubstance abuse Current Visit: No Status: Chronic (8) Cirrhosis Current Visit: Yes Status: Chronic (9) Alcohol use Current Visit: Yes Status: Acute (10) Hypomagnesemia Current Visit: Yes Status: Acute (11) Debility Current Visit: No Status: Chronic (12) DVT prophylaxis Current Visit: No Status: Acute - Time Spent with Patient Total time spent is greater than 50% in coordination of care (as documented) at patient's floor/unit and/or counseling patient: Internal Medicine: Result - Labs CBC & Chem 7: 05/06/19 03:50 05/06/19 03:50 Labs: Short CBC 05/06/19 Range/Units 03:50 WBC 18.5 H (4.3-11.1) K/mcL Hgb 9.8 L (12.9-16.9) g/dL Hct 29.8 L (37.5-50.1) % Plt Count 403 H (140-400) K/mcL Neutrophils # 15.5 H (1.6-8.9) K/mcL BMP 05/06/19 03:50 Sodium 139 Potassium 3.6 Chloride 106 Carbon Dioxide 26 BUN 9 Creatinine 0.68 L Glucose 226 H Calcium 9.0 - ABG Interpretation ABG results: ABG ABG pH 7.40 pH Units (7.32-7.45) 05/03/19 17:26 ABG pCO2 45 mmHg (35-45) 05/03/19 17:26 ABG pO2 107 mmHg (85-104) H 05/03/19 17:26 ABG O2 Saturation 98 % (95-98) 05/03/19 17:26 PT/INR, D-dimer PT 12.3 Seconds (9.4-12.1) H 05/04/19 03:28 Consult Discharge Plan - Plan Referrals: Gerard Srivastava MD [Primary Care Provider] - (Called and left message with name and birthdate..) - Attending Attestation I examined this patient and my medical decision-making was reviewed with the Resident Physician Dr Gunn. I agree with the documented findings, disposition and treatment plan as described except to the extent set forth below. Mr Rizzo is admitted with sepsis, pna and UTI awake, no family present, denies sob or cough. no abd pain, n/v. had discussion regarding why he is holding the subutex and not taking it. In past made him sick when we sub subutex for suboxone. appears more oriented today gen- alert, awake,appears stated age cv- reg rate and rhythm, normal s1,s2 lungs- ctabl, no wheezing, rhonchi or crackles, normal resp effort on room air neuro- AAOxperson, place, situation CN grossly intact sepsis 2/2 pna and UTI- resolved- cont IV abx PNA, organism uk- Zosyn + Vanc UTI w hx recurrent UTIs- ucx reviewed and MDR Proteus- cont Zosyn, c/s'd ID Acute Encephalopathy suspected Infectious (sepsis, pna, uti) as no metabolic, other neurologic, cardiac cause identified; likely complicated by prescribed home med regimen with multiple sedating meds -transitioned to oral steroids, resume gabapentin at lower dose and cont to hold trazadone cirrhosis, does not appear decompensated, AMS likely related to infection as ammonia level normal and no clinical s/s of SBP or fluid overload- increased home lactulose as not at goal bms for med/dx hypophosphatemia- IV repletion and monitor further dx as noted by resident <Wang Gunn S - Last Filed: 05/06/19 19:18> Hospitalist Progress Note - Encounter Date of Encounter: 05/06/19 Time of Encounter: 08:30 - Subjective Interval History: Mr. Rizzo is a 63-year-old male admitted to her service with multiple drug- resistant Proteus UTI and pneumonia with a positive nasal MRSA swab. Patient is upset, states he had a "rough night." Patient recounts that he suffered an episode of urinary incontinence, and requested of the nurses help him changing it cleaned up. He states that while they were changing his hospital gown, he told the nurse about the pills he was keeping in the pocket. The nurses found and confiscated 2 tablets of the Subutex that the patient has been prescribed. Mr. Rizzo states that on a prior admission, while he was taking Suboxone on schedule at home, he came into the hospital and was given a dose of Subutex. He states that getting this dose of Subutex while the Suboxone was still in his system made him extremely ill, and so he was waiting for his home Suboxone to wear off before he took his prescribed Subutex. Patient states that he mentioned this at some point someone, but does not remember who. I discussed this with the patient, and he volunteered that his might be able to bring in his home Suboxone and he can take that per his usual schedule. He was informed that this will have to be approved through pharmacy, will be kept in our med locker, and distributed by the nurse. He is in agreement with this plan, and the will bring his home Suboxone later today Otherwise, the patient feels great, he reports that the gabapentin he was given last night helped with his symptoms, and he is feeling much better today. he denies any chest pain, shortness of breath, dizziness, lightheadedness, trouble swallowing or speaking, vomiting, diarrhea, constipation, black stool, bloody stool, new onset numbness/tingling/weakness anywhere. He reports some nausea, but states it is mild - Exam Vitals: Temp Pulse Resp BP Pulse Ox 98.0 F 85 16 130/78 100 05/06/19 07:26 05/06/19 07:26 05/06/19 07:05/06/19 07:05/06/19 07:26 Exam: Gen: Awake and alert, no acute distress, slightly disheveled and dressed in a ho spital gown. Head: Normocephalic, atraumatic Eyes: EOMI, no scleral icterus or conjunctival pallor ENT: Mucous membranes moist, no oropharyngeal erythema CV: S1-S2 present, regular at a rate of approx 70, no murmurs rubs or gallops Abd: Markedly distended with numerous visible veins present scattered across the abdomen, fluid wave present. Patient does not have any tenderness to palpation, no peritoneal signs, no guarding. abdomen is soft, no hernias appreciated - abdominal exam unchanged Skin: Warm, dry, intact, no rashes or lesions noted Neuro: Cranial nerves II-XII grossly intact, no new focal neurologic deficits Pulm: No wheezes rales or rhonchi noted, not tachypneic, no respiratory distress, no increased work of breathing EXT: Significant weakness bilateral hands, with chronic contractures, no lower extremity edema, no distal cyanosis or pallor. more hand tremulousness observed than yesterday, but shaking stopped when patient held out hands in front of himself Psych: normal mood and affect, Intact judgment, appropriate insight, linear thought, oriented to self, date and location. - Assessment and Plan (1) UTI (urinary tract infection) Current Visit: Yes Status: Acute Assessment and Plan: Cultures returned MDR Proteus sensitive to Zosyn UTI symptoms remitting Patient is eating and drinking fine BUN/Creat WNL Pt admits today to long-standing urinary incontinence consistent with urge incontinence. * Continue IV Zosyn * By mouth fluids * monitor mental status and kidney function (2) Pneumonia Current Visit: Yes Status: Acute Assessment and Plan: Significant clinical improvement, with auscultatory findings resolved. No subjective shortness of breath, cough, sputum production O2 sat at patient's baseline, 94-95% Nasal MRSA swab positive * Continue vancomycin * Continue to monitor pulse ox (3) Altered mental status Current Visit: Yes Status: Acute Assessment and Plan: Patient is A&O 3 today Patient's baseline is unknown, but seems to have no alteration to mental status and sensorium * consider calling to establish what patient's baseline is (4) Cirrhosis Current Visit: Yes Status: Chronic Assessment and Plan: No signs or symptoms of SBP, though significant ascites present Coags have been normal Serum proteins are low * Continue lactulose * Continue diabetic diet (5) Sepsis Current Visit: Yes Status: Acute Assessment and Plan: Sepsis present on admission Patient currently meeting 0 SIRS criteria (6) Alcohol use Current Visit: Yes Status: Acute Assessment and Plan: Patient is on hospital day #3 4 consecutive CIWA scores of 0 recorded * D/C CIWA protocol * Reassessment with clinical exam in the morning (7) Diabetes mellitus Current Visit: No Status: Chronic Assessment and Plan: Blood sugars have been consistently elevated but moderately well-controlled * Diabetic diet * Glucose checks ACHS * SSI (8) Tobacco abuse Current Visit: No Status: Chronic Assessment and Plan: Nicotine patch (9) COPD (chronic obstructive pulmonary disease) Current Visit: No Status: Chronic Assessment and Plan: Continue nebulizer treatments Continue to taper IV steroids slowly (10) Anemia Current Visit: Yes Status: Acute Assessment and Plan: Hemoglobin stable, 9.8 today, 9.7 yesterday, 10.3 the day before * Iron studies yesterday showed low iron, low ferritin, low transferrin * By mouth iron supplementation initiated yesterday, continue * Further workup for pain deficiency as outpatient (11) Hypophosphatasia Current Visit: Yes Status: Acute Assessment and Plan: By mouth Neutra-Phos given (12) Hypokalemia Current Visit: Yes Status: Acute Assessment and Plan: * By mouth Klor-Con given * Recheck AM DVT Prophylaxis: SCDs - Time Spent with Patient Total time spent is greater than 50% in coordination of care (as documented) at patient's floor/unit and/or counseling patient: Internal Medicine: Result - Labs CBC & Chem 7: 05/06/19 03:50 05/06/19 03:50 Labs: Short CBC 05/06/19 Range/Units 03:50 WBC 18.5 H (4.3-11.1) K/mcL Hgb 9.8 L (12.9-16.9) g/dL Hct 29.8 L (37.5-50.1) % Plt Count 403 H (140-400) K/mcL Neutrophils # 15.5 H (1.6-8.9) K/mcL BMP 05/06/19 03:50 Sodium 139 Potassium 3.6 Chloride 106 Carbon Dioxide 26 BUN 9 Creatinine 0.68 L Glucose 226 H Calcium 9.0 - ABG Interpretation ABG results: ABG ABG pH 7.40 pH Units (7.32-7.45) 05/03/19 17:26 ABG pCO2 45 mmHg (35-45) 05/03/19 17:26 ABG pO2 107 mmHg (85-104) H 05/03/19 17:26 ABG O2 Saturation 98 % (95-98) 05/03/19 17:26 PT/INR, D-dimer PT 12.3 Seconds (9.4-12.1) H 05/04/19 03:28 <Leelee Marques M - Last Filed: 05/06/19 12:13> (1) Sepsis Qualifiers: Sepsis type: sepsis due to unspecified organism Sepsis acute organ dysfunction status: unspecified Qualified Code(s): A41.9 - Sepsis, unspecified organism (2) Pneumonia Qualifiers: Pneumonia type: due to unspecified organism Laterality: bilateral Lung location: unspecified part of lung Qualified Code(s): J18.9 - Pneumonia, unspecified organism (3) UTI (urinary tract infection) Qualifiers: Urinary tract infection type: site unspecified Hematuria presence: without hematuria Qualified Code(s): N39.0 - Urinary tract infection, site not specified (5) Diabetes mellitus Qualifiers: Diabetes mellitus type: type 2 Diabetes mellitus nursing home insulin use: without rodent exterminator use Diabetes mellitus complication status: with hyperglycemia Qualified Code(s): E11.65 - Type 2 diabetes mellitus with hyperglycemia (8) Cirrhosis Qualifiers: Hepatic cirrhosis type: unspecified hepatic cirrhosis Ascites presence: unspecified Qualified Code(s): K74.60 - Unspecified cirrhosis of liver <Wang Gunn S - Last Filed: 05/06/19 19:18> (1) UTI (urinary tract infection) Qualifiers: Urinary tract infection type: site unspecified Hematuria presence: without he maturia Qualified Code(s): N39.0 - Urinary tract infection, site not specified (2) Pneumonia Qualifiers: Pneumonia type: due to unspecified organism Laterality: bilateral Lung location: unspecified part of lung Qualified Code(s): J18.9 - Pneumonia, unspecified organism (3) Altered mental status Qualifiers: Altered mental status type: unspecified Qualified Code(s): R41.82 - Altered mental status, unspecified (4) Cirrhosis Qualifiers: Hepatic cirrhosis type: unspecified hepatic cirrhosis Ascites presence: unspecified Qualified Code(s): K74.60 - Unspecified cirrhosis of liver (5) Sepsis Qualifiers: Sepsis type: sepsis due to unspecified organism Sepsis acute organ dysfunctio n status: unspecified Qualified Code(s): A41.9 - Sepsis, unspecified organism (7) Diabetes mellitus Qualifiers: Diabetes mellitus type: type 2 Diabetes mellitus nursing home insulin use: without nursing home use Diabetes mellitus complication status: with hyperglycemia Qualified Code(s): E11.65 - Type 2 diabetes mellitus with hyperglycemia (9) COPD (chronic obstructive pulmonary disease) Qualifiers: COPD type: unspecified COPD Qualified Code(s): J44.9 - Chronic obstructive pulmonary disease, unspecified (10) Anemia Qualifiers: Anemia type: iron deficiency Iron deficiency anemia type: unspecified iron deficiency Qualified Code(s): D50.9 - Iron deficiency anemia, unspecified
[2019-05-06] MEDS ORDERED: Potassium Phosphate 44 MEQ in 0.9 % Sodium Chloride 250 ML IVPB ONE (08:23)
[2019-05-06] MEDS: amLODIPine 5 MG TABLET PO SCH (08:38)
[2019-05-06] MEDS: predniSONE 20 MG TABLET PO SCH (08:38)
[2019-05-06] MEDS: Lactulose Oral Soln 20 GM/30 ML UDC PO SCH ×3 (08:39→20:43)
[2019-05-06] MEDS: Pantoprazole 40 MG VIAL IVP SCH (08:39)
[2019-05-06] MEDS: Insulin LISPRO 300 UNITS/3 ML VIAL SQ SCH ×4 (08:40→20:43)
[2019-05-06] MEDS ORDERED: MethylPREDNISolone 40 MG/ML VIAL IVP SCH (09:00)
[2019-05-06] MEDS ORDERED: Gabapentin 400 MG CAPSULE PO SCH (10:30)
[2019-05-06] MEDS: BUPRENORPHINE/NALOXONE 8-2MG PO SCH ×2 (15:20→21:32)
[2019-05-06] MEDS: Nicotine 21 MG PATCH.TD24 TD PRN (17:59)
[2019-05-06] MEDS: Thiamine (B-1) 100 MG, Folic Acid 1 MG, MVI, adult with vitamin K 10 ML in 0.9 % Sodi... IVPB SCH (19:40)
[2019-05-07] MEDS: Piperacillin/Tazobactam 3.375 GM in 0.9 % Sodium Chloride Mini Bag 100 ML IVPB SCH ×3 (00:45→17:39)
[2019-05-07] MEDS: Ipratropium/Albuterol Neb 3 ML IH SCH ×4 (04:05→22:18)
[2019-05-07 05:17] LABS: Basophils % 0.1 %; Hematocrit 32.9 % (37.5-50.1); Hemoglobin 10.6 g/dL (12.9-16.9); Immature Granulocytes % 0.7 % (0-4); Lymphocytes # 1.8 K/mcL (0.6-4.6); Lymphocytes % 11.1 %; Mean Corpuscular HGB Conc 32.2 g/dL (31.6-35.5); Mean Corpuscular Hemoglobin 27.4 pg (28.0-33.3); Mean Platelet Volume 9.3 fL (9.4-12.4); Monocytes # 0.9 K/mcL (0.0-1.3); Monocytes % 5.4 %; Neutrophils # 13.2 K/mcL (1.6-8.9); Platelet Count 479 K/mcL (140-400); Red Blood Count 3.87 M/mcL (4.19-5.50); Red Cell Distribution Width 17.2 % (11.5-14.5); Segmented Neutrophils % 82.7 %
[2019-05-07 05:29] LABS: Magnesium 1.7 mg/dL (1.6-2.6); Phosphorous 2.3 mg/dL (2.7-4.5)
[2019-05-07 05:31] LABS: BUN/Creatinine Ratio 8 (6-26); Blood Urea Nitrogen 7 mg/dL (8-23); Calcium 9.3 mg/dL (8.6-10.3); Carbon Dioxide 27 mEq/L (23-29); Chloride 103 mEq/L (98-107); Glucose 260 mg/dL (70-105); Osmolality,Calculated 289 (280-300); Potassium 3.7 mEq/L (3.5-5.1); Sodium 136 mEq/L (136-145); Vancomycin,Trough 16 mcg/mL (5-10); eGFR For African Americans > 60 (> 60); eGFR For Non-African Americans > 60 (> 60)
[2019-05-07] MEDS: Insulin LISPRO 300 UNITS/3 ML VIAL SQ SCH ×4 (07:46→22:00)
--- NOTE | 2019-05-07 07:49 | Internal Med Progress Note ---
<Leelee Marques - Last Filed: 05/07/19 12:35> Hospitalist Progress Note - Encounter Date of Encounter: 05/07/19 - Exam Vitals: Temp Pulse Resp BP Pulse Ox 98.2 F 99 18 125/81 95 05/07/19 11:38 05/07/19 11:38 05/07/19 11:38 05/07/19 11:38 05/07/19 11:38 - Assessment and Plan (1) Sepsis Current Visit: Yes Status: Acute (2) Pneumonia Current Visit: Yes Status: Acute (3) UTI (urinary tract infection) Current Visit: Yes Status: Acute (4) COPD exacerbation Current Visit: No Status: Acute (5) Diabetes mellitus Current Visit: No Status: Chronic (6) Tobacco abuse Current Visit: No Status: Chronic (7) Polysubstance abuse Current Visit: No Status: Chronic (8) Cirrhosis Current Visit: Yes Status: Chronic (9) Alcohol use Current Visit: Yes Status: Acute (10) Hypomagnesemia Current Visit: Yes Status: Acute (11) Debility Current Visit: No Status: Chronic (12) DVT prophylaxis Current Visit: No Status: Acute - Time Spent with Patient Total time spent is greater than 50% in coordination of care (as documented) at patient's floor/unit and/or counseling patient: Internal Medicine: Result - Labs CBC & Chem 7: 05/07/19 04:45 05/07/19 04:45 Labs: Short CBC 05/07/19 Range/Units 04:45 WBC 16.0 H (4.3-11.1) K/mcL Hgb 10.6 L (12.9-16.9) g/dL Hct 32.9 L (37.5-50.1) % Plt Count 479 H (140-400) K/mcL Neutrophils # 13.2 H (1.6-8.9) K/mcL BMP 05/07/19 04:45 Sodium 136 Potassium 3.7 Chloride 103 Carbon Dioxide 27 BUN 7 L Creatinine 0.87 Glucose 260 H Calcium 9.3 - ABG Interpretation ABG results: ABG ABG pH 7.40 pH Units (7.32-7.45) 05/03/19 17:26 ABG pCO2 45 mmHg (35-45) 05/03/19 17:26 ABG pO2 107 mmHg (85-104) H 05/03/19 17:26 ABG O2 Saturation 98 % (95-98) 05/03/19 17:26 PT/INR, D-dimer PT 12.3 Seconds (9.4-12.1) H 05/04/19 03:28 Consult Discharge Plan - Plan Referrals: Gerard Srivastava MD [Primary Care Provider] - (Called and left message with name and birthdate..) - Attending Attestation I examined this patient and my medical decision-making was reviewed with the Resident Physician Dr Hand. I agree with the documented findings, disposition and treatment plan as described except to the extent set forth below. Mr Rizzo is admitted with sepsis, pna and UTI awake, no family present, now having freq liquid stools with lactulose increase. no sob, cough or wheezing, denies dysuria fevers or chills gen- alert, awake,appears stated age cv- reg rate and rhythm, normal s1,s2 lungs- ctabl, , normal resp effort on room air neuro- AAOxperson, place, situation sepsis 2/2 pna and UTI- resolved PNA, organism uk- Zosyn UTI w hx recurrent UTIs- ucx reviewed and MDR Proteus- cont Zosyn, appreciate ID input Acute Encephalopathy suspected Infectious (sepsis, pna, uti); likely complicated by prescribed home med regimen with multiple sedating meds -resumed gabapentin at lower dose and monitor, ok to give trazadone tonight cirrhosis, does not appear decompensated, AMS likely related to infection as ammonia level normal and no clinical s/s of SBP or fluid overload- increased home lactulose as not at goal bms for med/dx and was complaining of constipation, now increased bms, reduced dosing hypophosphatemia- PO repletion, no wnear normal further dx/plan as noted by resident dispo- keeps refusing pt/ot evals, once have ID recs for abx will work with SW regarding dispo plan <Jake Hand - Last Filed: 05/07/19 15:44> Hospitalist Progress Note - Encounter Date of Encounter: 05/07/19 Time of Encounter: 09:45 - Subjective Interval History: the patient is resting comfortably in bed at time of examination. He is somewhat agitated today, however he says that overall he is feeling better than he was yesterday. He does say that he is having significant amounts of pain in comparison to yesterday, largely because he is no longer getting his gabapentin. In addition of this, he also is having significant amounts of bowel movements because his lactulose dosing frequency was increased. The patient is not having any chest pains, shortness of breath. He is not having any nausea or vomiting. - Exam Vitals: Temp Pulse Resp BP Pulse Ox 98.1 F 96 17 152/93 96 05/07/19 07:32 05/07/19 07:32 05/07/19 07:32 05/07/19 07:05/07/19 03:47 Exam: Gen: Vitals noted. No acute distress. Eyes: anicteric sclerae, moist conjunctivae; no lid-lag; Pupils equal and reactive to light HENT: Atraumatic; oropharynx clear with moist mucous membranes and no mucosal ulcerations; normal hard and soft palate Neck: Trachea midline; supple, no thyromegaly or lymphadenopathy Cardiac: RRR, no murmur, +S1/S2 Pulmonary: CTA bilaterally, no wheezes, rales or rhonchi, equal chest expansion Abdomen: significantly firm abdomen without tenderness on palpation. No hepatosplenomegaly is noted however to technically difficult exam. No fluid wave or ascites noted. MSK: ROM intact, no joint swelling noted Extremities: no BLE edema, nontender calf, no cyanosis or clubbing Skin: Normal temperature, turgor and texture; no rash, ulcers or subcutaneous nodules Neuro: moves all extremities, no focal deficits. Psych: patient is agitated but not aggressive. A&Ox3 - Assessment and Plan (1) UTI (urinary tract infection) Current Visit: Yes Status: Acute Assessment and Plan: Urine Cultures 05/03/19 returned MDR Proteus sensitive to Zosyn according to patient, he is not symptomatic at this time Patient is eating and drinking fine BUN/Creat WNL Pt admits today to long-standing urinary incontinence consistent with urge incontinence. * Continue IV Zosyn pending ID recommendations * By mouth fluids * monitor mental status and kidney function (2) Sepsis Current Visit: Yes Status: Resolved Assessment and Plan: sepsis on arrival secondary to urinary tract infection and community-acquired pneumonia Patient does have history of recurrent urinary tract infections with MDR Proteus he is currently treated with vancomycin and Zosyn Infectious disease has been consulted, appreciate recommendations (3) Acute encephalopathy Current Visit: Yes Status: Acute Assessment and Plan: encephalopathy, secondary to medication adverse effect and possibly secondary to urinary tract infection as well. Patient is not altered today. (4) Cirrhosis Current Visit: Yes Status: Chronic Assessment and Plan: No signs or symptoms of SBP, though significant ascites present Coags have been normal Serum proteins are low we did increase the patient's lactulose however he is now having significant diarrhea * Continue lactulose at home dose (5) Community acquired pneumonia Current Visit: Yes Status: Suspected Assessment and Plan: community acquired pneumonia suspected clinically and on chest x-ray on admission Patient continues to show improvement Baseline oxygenation saturation adequate, no cough or sputum production at this time He has been treated with vancomycin and Zosyn At this time we will discontinue vancomycin Continue to monitor (6) Hypophosphatasia Current Visit: Yes Status: Acute Assessment and Plan: by mouth Neutra-Phos replacement, recheck in the morning - Time Spent with Patient Total time spent is greater than 50% in coordination of care (as documented) at patient's floor/unit and/or counseling patient: Internal Medicine: Result - Labs CBC & Chem 7: 05/07/19 04:45 05/07/19 04:45 Labs: Short CBC 05/07/19 Range/Units 04:45 WBC 16.0 H (4.3-11.1) K/mcL Hgb 10.6 L (12.9-16.9) g/dL Hct 32.9 L (37.5-50.1) % Plt Count 479 H (140-400) K/mcL Neutrophils # 13.2 H (1.6-8.9) K/mcL BMP 05/07/19 04:45 Sodium 136 Potassium 3.7 Chloride 103 Carbon Dioxide 27 BUN 7 L Creatinine 0.87 Glucose 260 H Calcium 9.3 - ABG Interpretation ABG results: ABG ABG pH 7.40 pH Units (7.32-7.45) 05/03/19 17:26 ABG pCO2 45 mmHg (35-45) 05/03/19 17:26 ABG pO2 107 mmHg (85-104) H 05/03/19 17:26 ABG O2 Saturation 98 % (95-98) 09/19/19 17:26 PT/INR, D-dimer PT 12.3 Seconds (9.4-12.1) H 05/04/19 03:28 <Leelee Marques - Last Filed: 05/07/19 12:35> (1) Sepsis Qualifiers: Sepsis type: sepsis due to unspecified organism Sepsis acute organ dysfunction status: unspecified Qualified Code(s): A41.9 - Sepsis, unspecified organism (2) Pneumonia Qualifiers: Pneumonia type: due to unspecified organism Laterality: bilateral Lung location: unspecified part of lung Qualified Code(s): J18.9 - Pneumonia, unspecified organism (3) UTI (urinary tract infection) Qualifiers: Urinary tract infection type: site unspecified Hematuria presence: without hematuria Qualified Code(s): N39.0 - Urinary tract infection, site not specified (5) Diabetes mellitus Qualifiers: Diabetes mellitus type: type 2 Diabetes mellitus half-way insulin use: without half-way use Diabetes mellitus complication status: with hyperglycemia Qualified Code(s): E11.65 - Type 2 diabetes mellitus with hyperglycemia (8) Cirrhosis Qualifiers: Hepatic cirrhosis type: unspecified hepatic cirrhosis Ascites presence: unspecified Qualified Code(s): K74.60 - Unspecified cirrhosis of liver <Jake Hand - Last Filed: 05/07/19 15:44> (1) UTI (urinary tract infection) Qualifiers: Urinary tract infection type: site unspecified Hematuria presence: without hematuria Qualified Code(s): N39.0 - Urinary tract infection, site not specified (2) Sepsis Qualifiers: Sepsis type: sepsis due to unspecified organism Sepsis acute organ dy sfunction status: unspecified Qualified Code(s): A41.9 - Sepsis, unspecified organism (4) Cirrhosis Qualifiers: Hepatic cirrhosis type: unspecified hepatic cirrhosis Ascites presence: unspecified Qualified Code(s): K74.60 - Unspecified cirrhosis of liver (5) Community acquired pneumonia Qualifiers: Laterality: left Lung location: upper lobe of lung Qualified Code(s): J18.1 - Lobar pneumonia, unspecified organism
[2019-05-07] MEDS: Pantoprazole 40 MG VIAL IVP SCH (08:09)
--- NOTE | 2019-05-07 09:00 | Infectious Disease Consult ---
Infectious Disease-Consult - Encounter Date/Time Date of Encounter: 05/07/19 Time of Encounter: 08:57 - Data of Consult Patient: new to practice Reason for consult: "abx recs MDR proteus" Consult date: 05/07/19 Requesting Physician: Leelee Marques Primary Care Provider: Gerard Srivastava MD - HPI HPI: Mr. Rizzo is a 63-year-old male with past medical history of hypertension, hyperlipidemia, COPD, diabetes, cirrhosis, chronic alcohol abuse, and remote history of IV drug use. The patient was admitted to the hospital 05/03/19 for sepsis, pneumonia, UTI. We are consulted 05/07/19 for further workup and treatment plan multidrug-resistant UTI. Briefly, the patient is a 63-year-old male with past medical history as stated above. The patient presented to the emergency department with complaints of altered mental status, productive cough, and fever. Upon arrival, he was febrile with temperature 102.2. He was tachycardic and tachypneic and had leukocytosis. Lactic acid, renal function, LFTs, and ammonia level were normal. Troponin was negative. Blood alcohol was less than 10. Urinalysis was positive for pyuria and the culture grew out multidrug resistant Proteus mirabilis. Chest x-ray showed bibasilar airspace disease consistent with pneumonia. His CT of the head that showed acute paranasal sinus disease, but no acute intracranial abnormality. Blood cultures were obtained 2 sets are no growth to date. He was started empirically on Zosyn and vancomycin and was admi tted to the hospital for further evaluation. Since admission, the patient's leukocytosis has improved. Fevers and tachycardia have resolved. He had a MRSA nasal screen was positive. His altered mental status progressively point where he wanted to sign out AMA, however, the medical team felt that he was not able to make his medical decisions and he was placed on a medical hold. Currently, he is on vancomycin and Zosyn. We have been asked to evaluate and make further recommendations. During my exam today, the patient is somewhat resistant to answer my questions and states she is tired of having multiple providers in his room asking the same questions. According to the records, the patient had acute altered mental status with increased cough production and fever with a MAXIMUM TEMPERATURE of 100.1 at home. Per the records, he also told previous providers that he had had some dysuria. During my exam today, he does tells me that he has been feeling poorly for 4 or 5 days, but denies any specific complaints. He states that at this time he does not really feel any better. He denies any fevers or chills or rigors, but states he has been feeling hot. He reports chronic neck and back pain that are worse because they have taken all of his pain medications away. He denies chest pain. Reports chronic shortness of breath and a moist nonproductive cough. He denies any dysphagia. He reports some nausea, but denies any vomiting. Reports one loose stool per day. Denies any abdominal pain or distention. States he has chronic dysuria and urinary frequency that seem to be at baseline at this time. He denies any flank pain. He states he is unable to even related to her previous work injury. He denies oral thrush or skin rashes. The patient lives at home with his . He does not work outside the home. He smokes 1 pack cigarettes per day. States he drinks 2 beers per day. Denies illicit drug use, but according to the records he has a remote history of IV heroin use and is on Suboxone at home. Denies chronic infectious diseases. Denies recent travel outside the [facility]. - ROS Review of Systems: All systems reviewed and no additional remarkable complaints except as stated. - Results CBC & Chem 7: 05/07/19 04:45 05/07/19 04:45 - Exam Vitals: Temp Pulse Resp BP Pulse Ox 98.1 F 96 17 152/93 96 05/07/19 07:32 05/07/19 07:32 05/07/19 07:32 05/07/19 07:32 05/07/19 03:47 Exam: Head: Atraumatic, normal inspection, normocephalic. Eye: EOMI, PERRLA, no scleral icterus noted. ENT: Mucous membranes moist. No odontogenic infection noted. Neck: Normal inspection, no meningismus. Respiratory: Clear to auscultation. No rales, respiratory distress, rhonchi, or wheezes noted. Cardiovascular: Regular rate and rhythm, S1 and S2 audible. No murmurs, rubs, or gallops. GI: Firm, distended, normal bowel sounds. Generalized tenderness noted with palpation. Extremities: No joint swelling, pedal edema, or tenderness noted. Back: Deferred per patient request. Neurological: Alert, oriented 3, no focal deficits. Symmetrical weakness noted to bilateral lower extremities. Psychiatric: normal affect, irritable. Skin: Dry, intact, warm. Normal color. No rashes. Gabapentin [Neurontin] 800 mg PO TID 01/25/18 [History] Metformin HCl [Glucophage] 1,000 mg PO BIDWM 01/25/18 [History] Albuterol Neb [Proventil Neb] 3 ml IH QID PRN 12/28/18 [History] Amlodipine Besylate 5 mg PO DAILY 12/28/18 [History] Atorvastatin [Lipitor] 40 mg PO HS 12/28/18 [History] Cyclobenzaprine HCl 10 mg PO TID PRN 12/28/18 [History] Fluticasone/Vilanterol [Breo Ellipta 200-25 Mcg INH] 1 puff IH BID 12/28/18 [History] Lactulose [Enulose] 20 gm PO BID 12/28/18 [History] Metoclopramide HCl 5 mg PO Q8H PRN 12/28/18 [History] Tamsulosin HCl [Flomax] 0.4 mg PO DAILY 12/28/18 [History] Buprenorphine HCl/Naloxone HCl [Buprenorphin-Naloxon 8-2 mg Sl] 1.5 tab SL DAILY 05/03/19 [History] Trazodone HCl 50 mg PO HS PRN 05/03/19 [History] Allergy/AdvReac Type Severity Reaction Status Date / Time No Known Allergies Allergy Verified 12/28/18 21:47 - Assessment and Plan (1) Sepsis Current Visit: Yes Status: Acute The patient had 4 sepsis criteria on admission. Likely secondary to pneumonia and UTI. Improved. Continues to have elevated white count, but appears to be trending down is likely secondary to steroids at this point. Tachycardia, tachypnea, and fevers have resolved. Blood cultures drawn 05/03/19 are no growth to date 2 sets. Qualifiers: Sepsis type: sepsis due to unspecified organism Sepsis acute organ dysfunction status: unspecified Qualified Code(s): A41.9 - Sepsis, unspecified organism SNOMED Code(s): 47080184 (2) Pneumonia Current Visit: Yes Status: Acute Causative organism: Unclear. Chest x-ray showed bibasilar airspace disease consistent with pneumonia. Given the patient's recent altered mental status, aspiration is certainly on the differential. MRSA screen was positive. Strep pneumococcal and legionella urinary antigen is negative. Currently on vancomycin and Zosyn (day 5). Qualifiers: Pneumonia type: due to unspecified organism Laterality: bilateral Lung location: unspecified part of lung Qualified Code(s): J18.9 - Pneumonia, u nspecified organism SNOMED Code(s): 613731647 (3) UTI (urinary tract infection) Current Visit: Yes Status: Acute Causative organism: Proteus mirabilis, sensitive only to carbapenems, tobramycin, and Zosyn. Asymptomatic bacteriuria vs. true infection. The patient tells me that he has chronic dysuria and urinary frequency that appear to be at baseline, however given the patient's recent history of altered mental status, we may be better off to go ahead and treat. Currently on IV Zosyn (day 5). Qualifiers: Urinary tract infection type: site unspecified Hematuria presence: without hematuria Qualified Code(s): N39.0 - Urinary tract infection, site not specified SNOMED Code(s): 27411963 (4) Altered mental status Current Visit: Yes Status: Acute Likely secondary to sepsis. CT head showed acute paranasal sinus disease, but no intracranial abnormality. Improved. Qualifiers: Altered mental status type: unspecified Qualified Code(s): R41.82 - Altered mental status, unspecified SNOMED Code(s): 914723576 (5) Alcohol use Current Visit: Yes Status: Acute Reports the use of 2 beers per day. CIWA protocol per the primary team. SNOMED Code(s): 266630 (6) Anemia Current Visit: Yes Status: Chronic Qualifiers: Anemia type: iron deficiency Iron deficiency anemia type: unspecified iron deficiency Qualified Code(s): D50.9 - Iron deficiency anemia, unspecified SNOMED Code(s): 780769927 (7) Cirrhosis Current Visit: Yes Status: Chronic MELD score 6. Qualifiers: Hepatic cirrhosis type: unspecified hepatic cirrhosis Ascites presence: unspecified Qualified Code(s): K74.60 - Unspecified cirrhosis of liver SNOMED Code(s): 45802133 (8) CVA (cerebral vascular accident) Current Visit: No Status: Chronic Qualifiers: CVA mechanism: unspecified Qualified Code(s): I63.9 - Cerebral infarction, unspecified SNOMED Code(s): 719114779 (9) COPD (chronic obstructive pulmonary disease) Current Visit: No Status: Chronic Qualifiers: COPD type: unspecified COPD Qualified Code(s): J44.9 - Chronic obstructive pulmonary disease, unspecified SNOMED Code(s): 39762642 (10) Diabetes mellitus Current Visit: No Status: Chronic Qualifiers: Diabetes mellitus type: type 2 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 On suboxone at home. SNOMED Code(s): 986634260 (12) Tobacco abuse Current Visit: No Status: Chronic NRT per the primary team. SNOMED Code(s): 254856746 - Recommendations Recommendations: Await blood cultures to finalize. Send sputum for culture if the patient is able to provide an adequate specimen. Pain management per the primary team. Continue Vancomycin IV. Pharmacy to dose. Goal trough ~15. Continue Zosyn 3.375 grams IV Q8H. Duration of treatment depends on the clinical picture, but can likely transition to doxycycline 100mg PO BID and Augmentin 875mg PO BID when ready for discharge to complete a total of 14 days of treatment. Treat through 05/16/19. Give fosfomycin 3 grams PO x 1 dose prior to discharge to complete treatment for UTI. Monitor renal function and for drug toxicity and dose-adjust antibiotics. Contact precautions per hospital policy. Past Med Surg Social Fam HX - Past Medical History Medical history: cirrhosis, COPD, CVA, diabetes, hyperlipidemia, hypertension Additional medical history: chronic back pain Psychiatric history: no psych history - Past Surgical History Surgical History: orthopedic, other Additional surgical history: Left leg, right arm and hand. back surgery. neck surgery - Social History Smoking Status: Current every day smoker Packs per day: 1 Smokeless Tobacco Status: No Alcohol use: heavy Drug use: opiates, marijuana, methamphetamine, other - Family History Mother Adopted: No Family Member Ethnicity: Non- Living Status: Still Living Hx Family Cardiac Disorders: No Hx Family Respiratory Disorders: No Hx Family Cancer: Yes Hx Family GI Disorders: No Hx Family Endocrine Disorder: No Hx Family Neuromuscular Disorders: No Hx Family Neurologic Disorders: No Hx Family HEENT Disorders: No Hx Family Autoimmune Disorders: No Father Adopted: No Family Member Ethnicity: Non- Living Status: Hx Family Cardiac Disorders: No Hx Family Respiratory Disorders: No Hx Family Cancer: Yes Hx Family GI Disorders: No Hx Family Endocrine Disorder: No Hx Family Neuromuscular Disorders: No Hx Family Neurologic Disorders: No Hx Family HEENT Disorders: No Hx Family Autoimmune Disorders: No Consult Discharge Plan - Plan Referrals: Gerard Srivastava MD [Primary Care Provider] - (Called and left message with name and birthdate..) - Attending Attestation I have personally performed a face to face evaluation on this patient. I have reviewed and agree with the care plan. This is an addendum to original report dictated by Maty Irene CNP. Please refer to Maty's note for full detail. Agree with above history of present illness, review of system and physical exam findings. Assessment and plan: 1. Sepsis 2. Pneumonia - etiology not clear + MRSA screen, -UAT, negative blood cultures 3. UTI - symptomatic? 4. Sinusiti 5. AMS secondary to 6. Liver cirrhosis Recommendations: continue vanc/zosyn while inhouse on d/c consider 1 pack of fosfomycin, Augmentin 875 bid through May 16 and doxycycline 100 mg bid through May 16
[2019-05-07] MEDS: Thiamine (B-1) 100 MG TABLET PO SCH (09:27)
[2019-05-07] MEDS: amLODIPine 5 MG TABLET PO SCH (09:29)
[2019-05-07] MEDS: Folic Acid 1 MG TABLET PO SCH (09:29)
[2019-05-07] MEDS: predniSONE 20 MG TABLET PO SCH (09:29)
[2019-05-07] MEDS: Lactulose Oral Soln 20 GM/30 ML UDC PO SCH ×2 (09:30→21:20)
[2019-05-07] MEDS: BUPRENORPHINE/NALOXONE 8-2MG PO SCH ×3 (09:30→21:22)
[2019-05-07] MEDS: Gabapentin 400 MG CAPSULE PO SCH ×2 (12:27→21:22)
[2019-05-07] MEDS ORDERED: Aminoglycoside Consult 1 EACH MC ONE (13:30)
[2019-05-07] MEDS: Nicotine 21 MG PATCH.TD24 TD PRN (17:39)
[2019-05-07] MEDS: traZODone 50 MG TABLET PO SCH (21:21)
[2019-05-08] MEDS: Piperacillin/Tazobactam 3.375 GM in 0.9 % Sodium Chloride Mini Bag 100 ML IVPB SCH (01:45)
[2019-05-08] MEDS: Ipratropium/Albuterol Neb 3 ML IH SCH ×2 (04:23→10:45)
[2019-05-08 05:00] LABS: Basophils % 0.1 %; Eosinophils # 0.1 K/mcL (0.0-0.6); Eosinophils % 0.7 %; Hematocrit 31.5 % (37.5-50.1); Hemoglobin 10.2 g/dL (12.9-16.9); Immature Granulocytes % 0.7 % (0-4); Lymphocytes # 2.7 K/mcL (0.6-4.6); Lymphocytes % 23.7 %; Mean Corpuscular HGB Conc 32.4 g/dL (31.6-35.5); Mean Corpuscular Hemoglobin 27.3 pg (28.0-33.3); Mean Corpuscular Volume 84.5 fL (83.0-100.0); Mean Platelet Volume 9.1 fL (9.4-12.4); Monocytes # 0.9 K/mcL (0.0-1.3); Monocytes % 8.3 %; Neutrophils # 7.6 K/mcL (1.6-8.9); Platelet Count 445 K/mcL (140-400); Red Blood Count 3.73 M/mcL (4.19-5.50); Red Cell Distribution Width 17.1 % (11.5-14.5); Segmented Neutrophils % 66.5 %; White Blood Count 11.4 K/mcL (4.3-11.1)
[2019-05-08 05:18] LABS: BUN/Creatinine Ratio 12 (6-26); Blood Urea Nitrogen 9 mg/dL (8-23); Calcium 9.1 mg/dL (8.6-10.3); Carbon Dioxide 30 mEq/L (23-29); Chloride 104 mEq/L (98-107); Glucose 281 mg/dL (70-105); Osmolality,Calculated 297 (280-300); Potassium 3.6 mEq/L (3.5-5.1); Sodium 139 mEq/L (136-145); eGFR For African Americans > 60 (> 60); eGFR For Non-African Americans > 60 (> 60)
--- NOTE | 2019-05-08 07:51 | Discharge Summary ---
<Leelee Marques - Last Filed: 05/08/19 14:10> Orders not resulted at time of discharge: Pending orders 05/03/19 18:39 Culture,Blood [BC] Stat 05/04/19 14:37 Culture,Sputum with Gram Stain [RM] Routine Date of Encounter: 05/08/19 - Discharge Diagnosis (1) Pneumonia Status: Acute Qualifiers: Pneumonia type: due to unspecified organism Laterality: bilateral Lung location: unspecified part of lung Qualified Code(s): J18.9 - Pneumonia, unspecified organism (2) UTI (urinary tract infection) Status: Acute Qualifiers: Urinary tract infection type: site unspecified Hematuria presence: without hematuria Qualified Code(s): N39.0 - Urinary tract infection, site not specified (3) COPD exacerbation Status: Acute (4) Diabetes mellitus Status: Chronic Qualifiers: Diabetes mellitus type: type 2 Diabetes mellitus skilled nursing insulin use: without exterminator termite use Diabetes mellitus complication status: with hyperglycemia Qualified Code(s): E11.65 - Type 2 diabetes mellitus with hyperglycemia (5) Tobacco abuse Status: Chronic (6) Polysubstance abuse Status: Chronic (7) Cirrhosis Status: Chronic Qualifiers: Hepatic cirrhosis type: unspecified hepatic cirrhosis Ascites presence: unspecified Qualified Code(s): K74.60 - Unspecified cirrhosis of liver (8) Alcohol use Status: Acute (9) Hypomagnesemia Status: Acute (10) Debility Status: Chronic (11) DVT prophylaxis Status: Acute Hospital course: Mr. Rizzo is a 63 year old male - Time Spent with Patient Total time spent providing and/or coordinating discharge services: - Discharge Medications Prescriptions: New Amoxicillin/Clavulanate [Augmentin] 875 mg PO BIDWM 8 Days #16 tablet Doxycycline 100 mg PO BID 8 Days #16 capsule Ferrous Sulfate 325 mg PO BIDWM #60 tablet Gabapentin [Neurontin] 400 mg PO TID capsule traZODone [TraZODone] 25 mg PO HS tablet Omeprazole [PriLOSEC] 20 mg PO DAILY@0730 #30 capsule.dr [place] [Culturelle] 1 each PO BID #14 cap.sprink Continued Metformin HCl [Glucophage] 1,000 mg PO BIDWM Albuterol Neb [Proventil Neb] 3 ml IH QID PRN PRN Reason: Shortness Of Breath Amlodipine Besylate 5 mg PO DAILY Atorvastatin [Lipitor] 40 mg PO HS Fluticasone/Vilanterol [Breo Ellipta 200-25 Mcg INH] 1 puff IH BID Metoclopramide HCl 5 mg PO Q8H PRN PRN Reason: Nausea And Vomiting Tamsulosin HCl [Flomax] 0.4 mg PO DAILY Lactulose [Enulose] 20 gm PO BID Buprenorphine HCl/Naloxone HCl [Buprenorphin-Naloxon 8-2 mg Sl] 1.5 tab SL DAILY Discontinued Gabapentin [Neurontin] 800 mg PO TID Cyclobenzaprine HCl 10 mg PO TID PRN PRN Reason: Muscle Spasm Trazodone HCl 50 mg PO HS PRN PRN Reason: Insomnia Home Medications: Metformin HCl [Glucophage] 1,000 mg PO BIDWM 01/25/18 [History] Albuterol Neb [Proventil Neb] 3 ml IH QID PRN 12/28/18 [History] Amlodipine Besylate 5 mg PO DAILY 12/28/18 [History] Atorvastatin [Lipitor] 40 mg PO HS 12/28/18 [History] Fluticasone/Vilanterol [Breo Ellipta 200-25 Mcg INH] 1 puff IH BID 12/28/18 [History] Lactulose [Enulose] 20 gm PO BID 12/28/18 [History] Metoclopramide HCl 5 mg PO Q8H PRN 12/28/18 [History] Tamsulosin HCl [Flomax] 0.4 mg PO DAILY 12/28/18 [History] Buprenorphine HCl/Naloxone HCl [Buprenorphin-Naloxon 8-2 mg Sl] 1.5 tab SL DAILY 05/03/19 [History] Amoxicillin/Clavulanate [Augmentin] 875 mg PO BIDWM 8 Days #16 tablet 05/08/19 [Rx] Doxycycline 100 mg PO BID 8 Days #16 capsule 05/08/19 [Rx] Ferrous Sulfate 325 mg PO BIDWM #60 tablet 05/08/19 [Rx] Gabapentin [Neurontin] 400 mg PO TID capsule 05/08/19 [Rx] Lactobacillus [Culturelle] 1 each PO BID #14 cap.melinaink 05/08/19 [Rx] Omeprazole [PriLOSEC] 20 mg PO DAILY@0730 #30 05/08/19 [Rx] traZODone [TraZODone] 25 mg PO HS tablet 05/08/19 [Rx] Allergies/Adverse Reactions: Allergy/AdvReac Type Severity Reaction Status Date / Time No Known Allergies Allergy Verified 12/28/18 21:47 Date of admission: 05/04/19 14:54 Primary care physician: Gerard Srivastava MD Consults: 05/03/19 22:00 Consult to Nurse Navigator [CONS] Routine Comment: 05/03/19 23:26 Consult to Occupational Therapy [CONS] Routine Comment: Evaluate, develop and implement POC Reason for Consult: Receives outpatient services for deconditioning. Does patient have active BEDREST order?: No Is patient medically & hemodynamically stable?: Yes Patient assessed for mobility or mobilized this visit?: No Consult to Physical Therapy [CONS] Routine Comment: Evaluate, develop and implement POC Reason for Consult: Receives outpatient services for deconditioning. Does patient have active BEDREST order?: No Is patient medically & hemodynamically stable?: Yes Patient assessed for mobility or mobilized this visit?: No 05/06/19 10:27 Consult to Infectious Diseases [CONS] Routine Consulting Provider: Infectious Disease [facility] Reason for Consult: abx recs MDR proteus Call Completed: No - Constitutional Vitals: Temp Pulse Resp BP Pulse Ox 97.8 F 103 17 132/77 95 05/08/19 11:16 05/08/19 11:16 05/08/19 11:16 05/08/19 11:16 05/08/19 11:16 - Patient Status Disposition: Home Health Service Condition: Fair - Discharge Instructions Instructions: Doxycycline (By mouth), Amoxicillin/Clavulanate Potassium (By mouth), Urinary Tract Infection in Men (DC), Pneumonia (DC) Follow Up With: Gerard Srivastava MD [Primary Care Provider] - (Called and left message with name and birthdate..) Additional Instructions: Med changes -Discontinue cyclobenzaprine -Decrease gabapentin to 400mg three times a day -Decrease trazodone to 25mg at night -Continue antibiotics for 8 days until May 16 -Doxycycline 100mg twice a day -Augmentin 875mg twice a day -Continue Ferrous sulfate twice a day -Continue Omeprazole 20mg in the morning Follow-up with your primary care provider to discuss medication changes skilled nursing. Return to the hospital for recurrent symptoms, fevers, chills, sweats, or confusion. - Attending Attestation I examined this patient and my medical decision-making was reviewed with the Resident Physician Dr Hand. I agree with the documented findings, disposition and treatment plan as described except to the extent set forth below. Mr Rizzo is admitted with sepsis, pna and UTI. He is medically stbale for dc to home awake,oriented and calm, feeling back to baseline, no cough, bladder pain or pressure. denies fevers or chills. discussed dc plan in detail and answered all questions gen- alert, awake,appears stated age cv- reg rate and rhythm, normal s1,s2 lungs- ctabl, no rhonchi or wheezing normal resp effort on room air abd- soft, nt, nd + bs neuro- AAOxperson, place, situation sepsis 2/2 pna and UTI- resolved PNA, organism uk- Zosyn inpt transitions to augmentin + doxy as per ID recs to compete course UTI w hx recurrent UTIs- ucx reviewed and MDR Proteus- fosfomycin prior to dc and completed course of tx inpt, appreciate ID input Acute Encephalopathy suspected Infectious (sepsis, pna, uti); likely complicated by prescribed home med regimen with multiple sedating meds, resolved -cont gabapentin at lower dose and fu outpt for up titration cirrhosis, does not appear decompensated, AMS likely related to infection as ammonia level normal and no clinical s/s of SBP or fluid overload- fu outpt further dx/plan as noted by resident dispo- refused pt/ot [facility] hills cont on dc timep spent on dc 40 min <Jake Hand - Last Filed: 05/08/19 14:27> - NOTES TO OUTPATIENT PROVIDER Notes to Outpatient Provider: admitted for encephalopathy, treated for sepsis due to pneumonia and UTI. Decreased multiple sedating medications which improved encephalopathy. Discharged with doxycycline and Augmentin. Orders not resulted at time of discharge: Pending orders 05/03/19 18:39 Culture,Blood [BC] Stat 05/04/19 14:37 Culture,Sputum with Gram Stain [RM] Routine Date of Encounter: 05/08/19 Time of Encounter: 10:05 - Discharge Diagnosis (1) Acute encephalopathy Priority: Primary Status: Resolved (2) UTI (urinary tract infection) Priority: Secondary Status: Acute Qualifiers: Urinary tract infection type: site unspecified Hematuria presence: without hematuria Qualified Code(s): N39.0 - Urinary tract infection, site not specified (3) Community acquired pneumonia Priority: Secondary Status: Suspected Qualifiers: Laterality: left Lung location: upper lobe of lung Qualified Code(s): J18.1 - Lobar pneumonia, unspecified organism (4) Cirrhosis Priority: Secondary Status: Chronic Qualifiers: Hepatic cirrhosis type: unspecified hepatic cirrhosis Ascites presence: unspecified Qualified Code(s): K74.60 - Unspecified cirrhosis of liver (5) Hypophosphatasia Priority: Secondary Status: Acute (6) Polypharmacy Priority: Secondary Status: Acute Hospital course: Dear Doctors, I recently had the opportunity to care for this patient during their recent hospital stay at [facility]. Mr. Rizzo is a 63-year-old gentleman with past medical history of COPD, cirrhosis, CVA, diabetes, hypertension, hyperlipidemia who presented to [facility] with altered mentation and productive cough. Upon arrival, the patient was found to have sepsis secondary to urinary tract infection and kidney acquired pneumonia. Over the course the patient's hospital stay, the patient did have blood cultures and urine cultures and was treated with broad-spectrum antibiotics. his cultures did grow in the ER Proteus mirabilis, and he was initially definitively treated with a dose of fosfomycin and is planned to be discharged on Augmentin and doxycycline. In addition of this, he did have acute encephalopathy which is thought to be largely secondary to polypharmacy in addition to his infections. The patient is on a number of highly sedating medications, and when they were stopped his altered mentation did resolve quite readily. A number of his medications were decreased in dose including his gabapentin, and the patient will be discharged on these lower doses. The patient is advised that they can be modified in the outpatient setting as needed. Dx: sepsis, urinary tract infection, community acquired pneumonia, polypharmacy Pertinent tests/consults: 05/03/19 urine culture demonstrated MDR Proteus mirabilis 05/03/19 CXR with b/l airspace disease suspicious for pna Follow up: -PCP within 5-10 days Tests pending: None Med changes: -Discontinue cyclobenzaprine -Decrease gabapentin to 400mg three times a day -Decrease trazodone to 25mg at night -Continue antibiotics for 8 days until May 16 -Doxycycline 100mg twice a day -Augmentin 875mg twice a day -Continue Ferrous sulfate twice a day -Continue Omeprazole 20mg in the morning Mental status: awake, fully oriented Code status: Full Code Time spent on discharge: 35 minutes It has been my pleasure participating in this patient's care. Please contact me with any questions or concerns regarding their hospital stay. Sincerely, Jake Hand, DO - Time Spent with Patient Total time spent providing and/or coordinating discharge services: Date of admission: 05/04/19 14:54 Primary care physician: Gerard Srivastava MD Consults: 05/03/19 22:00 Consult to Nurse Navigator [CONS] Routine Comment: 05/03/19 23:26 Consult to Occupational Therapy [CONS] Routine Comment: Evaluate, develop and implement POC Reason for Consult: Receives outpatient services for deconditioning. Does patient have active BEDREST order?: No Is patient medically & hemodynamically stable?: Yes Patient assessed for mobility or mobilized this visit?: No Consult to Physical Therapy [CONS] Routine Comment: Evaluate, develop and implement POC Reason for Consult: Receives outpatient services for deconditioning. Does patient have active BEDREST order?: No Is patient medically & hemodynamically stable?: Yes Patient assessed for mobility or mobilized this visit?: No 05/06/19 10:27 Consult to Infectious Diseases [CONS] Routine Consulting Provider: Infectious Disease [facility] Reason for Consult: abx recs MDR proteus Call Completed: No Discharging clinician: Jake Hand Anticipated date of discharge: 05/08/19 - Constitutional Vitals: Temp Pulse Resp BP Pulse Ox 97.9 F 73 17 156/57 95 05/08/19 07:13 05/08/19 07:13 05/08/19 07:13 05/08/19 07:13 05/08/19 07:13 General appearance: Present: cooperative, A&O X 3, pleasant, no acute distress, answers questions appropriately Exam: Gen: Vitals noted. No acute distress. Eyes: anicteric sclerae, moist conjunctivae; no lid-lag HENT: Atraumatic; oropharynx clear with moist mucous membranes and no mucosal ulcerations; normal hard and soft palate Neck: Trachea midline; supple, no thyromegaly or lymphadenopathy Cardiac: RRR, no murmur, +S1/S2 Pulmonary: CTA bilaterally, no wheezes, rales or rhonchi, equal chest expansion Abdomen: significantly firm abdomen without tenderness on palpation. No hepatosplenomegaly is noted however to technically difficult exam. No fluid wave or ascites noted. MSK: ROM intact, no joint swelling noted Extremities: no BLE edema, nontender calf, no cyanosis or clubbing Skin: Normal temperature, turgor and texture; no rash, ulcers or subcutaneous nodules Neuro: moves all extremities, no focal deficits. Psych: patient is well mannered and mood is appropriate. A&Ox3 - Patient Status Functional capacity at discharge: bed bound Overall status at discharge: patient is progressing back to baseline - Diet and Activity Activity: as per physical therapy, increase activity as tolerated Diet: regular diet
[2019-05-08] MEDS ORDERED: Fosfomycin Tromethamine 3 GM Packet PO ONE (08:00)
[2019-05-08] MEDS: Insulin LISPRO 300 UNITS/3 ML VIAL SQ SCH ×2 (08:06→11:52)
[2019-05-08] MEDS: Lactulose Oral Soln 20 GM/30 ML UDC PO SCH (08:07)
[2019-05-08] MEDS: Gabapentin 400 MG CAPSULE PO SCH (08:07)
[2019-05-08] MEDS: Thiamine (B-1) 100 MG TABLET PO SCH (08:07)
[2019-05-08] MEDS: Folic Acid 1 MG TABLET PO SCH (08:07)
[2019-05-08] MEDS: BUPRENORPHINE/NALOXONE 8-2MG PO SCH (08:07)
[2019-05-08] MEDS: amLODIPine 5 MG TABLET PO SCH (08:07)
[2019-05-08] MEDS ORDERED: Doxycycline 100 MG CAPSULE PO SCH (09:00)
--- NOTE | 2019-05-08 09:57 | Infectious Disease Progress No ---
ID Progress Note Date of Encounter: 05/08/19 Time of Encounter: 09:54 - Subjective Subjective: Patient seen and examined. No acute events noted overnight. Patient states overall he feels okay and wants to go home. Denies fevers, chills, rigors. Denies chest pain, shortness of breath, or cough. Denies nausea, vomiting, or constipation. Reports 2 loose stools yesterday, but none so far today. Denies abdominal pain or urinary complaints. Denies oral thrush or skin rashes. States his appetite is okay, but he did not eat any breakfast because he wants to eat when he goes home. - Objective CBC & Chem 7: 05/08/19 04:46 05/08/19 04:46 - Exam Vitals: Temp Pulse Resp BP Pulse Ox 97.9 F 73 17 156/57 95 05/08/19 07:13 05/08/19 07:13 05/08/19 07:13 05/08/19 07:13 05/08/19 07:13 Exam: Head: Atraumatic, normal inspection, normocephalic. Eye: EOMI, PERRLA, no scleral icterus noted. ENT: Mucous membranes moist. No odontogenic infection noted. Neck: Normal inspection, no meningismus. Respiratory: Rhonchi noted to the DIO. No rales, respiratory distress, rhonchi, or wheezes noted. Cardiovascular: Regular rate and rhythm, S1 and S2 audible. No murmurs, rubs, or gallops. GI:soft, distended, normal bowel sounds. nontender. Extremities: No joint swelling, pedal edema, or tenderness noted. Neurological: Alert, oriented 3, no focal deficits. Symmetrical weakness noted to bilateral lower extremities. Psychiatric: normal affect, irritable. Skin: Dry, intact, warm. Normal color. No rashes. - Assessment and Plan (1) Sepsis Current Visit: Yes Status: Resolved The patient had 4 sepsis criteria on admission. Likely secondary to pneumonia and UTI. Improved. WBC improved. Tachycardia, tachypnea, and fevers have resolved. Blood cultures drawn 05/03/19 are no growth to date 2 sets. Qualifiers: Sepsis type: sepsis due to unspecified organism Sepsis acute organ dysfunction status: unspecified Qualified Code(s): A41.9 - Sepsis, unspecified organism SNOMED Code(s): 78874300 (2) Pneumonia Current Visit: Yes Status: Acute Causative organism: Unclear. Chest x-ray showed bibasilar airspace disease consistent with pneumonia. Given the patient's recent altered mental status, aspiration is certainly on the differential. MRSA screen was positive. Strep pneumococcal and legionella urinary antigen is negative. Currently on Augmentin and doxycycline. Qualifiers: Pneumonia type: due to unspecified organism Laterality: bilateral Lung location: unspecified part of lung Qualified Code(s): J18.9 - Pneumonia, unspecified organism SNOMED Code(s): 617656034 (3) UTI (urinary tract infection) Current Visit: Yes Status: Acute Causative organism: Proteus mirabilis, sensitive only to carbapenems, tobramycin, and Zosyn. Asymptomatic bacteriuria vs. true infection. The patient tells me that he has chronic dysuria and urinary frequency that appear to be at baseline, however given the patient's recent history of altered mental status, we may be better off to go ahead and treat. Received 5 days of IV Zosyn +1 dose of oral fosfomycin. No further treatment necessary. Qualifiers: Urinary tract infection type: site unspecified Hematuria presence: without hematuria Qualified Code(s): N39.0 - Urinary tract infection, site not specified SNOMED Code(s): 02508809 (4) Altered mental status Current Visit: Yes Status: Resolved Likely secondary to sepsis. CT head showed acute paranasal sinus disease, but no intracranial abnormality. Improved. Qualifiers: Altered mental status type: unspecified Qualified Code(s): R41.82 - Altered mental status, unspecified SNOMED Code(s): 303337659 (5) Alcohol use Current Visit: Yes Status: Acute Reports the use of 2 beers per day. CIWA protocol per the primary team. SNOMED Code(s): 509465 (6) Anemia Current Visit: Yes Status: Chronic Qualifiers: Anemia type: iron deficiency Iron deficiency anemia type: unspecified iron deficiency Qualified Code(s): D50.9 - Iron deficiency anemia, unspecified SNOMED Code(s): 041925680 (7) Cirrhosis Current Visit: Yes Status: Chronic MELD score 6. Qualifiers: Hepatic cirrhosis type: unspecified hepatic cirrhosis Ascites presence: unspecified Qualified Code(s): K74.60 - Unspecified cirrhosis of liver SNOMED Code(s): 47026953 (8) CVA (cerebral vascular accident) Current Visit: No Status: Chronic Qualifiers: CVA mechanism: unspecified Qualified Code(s): I63.9 - Cerebral infarction, unspecified SNOMED Code(s): 868440979 (9) COPD (chronic obstructive pulmonary disease) Current Visit: No Status: Chronic Qualifiers: COPD type: unspecified COPD Qualified Code(s): J44.9 - Chronic obstructive pulmonary disease, unspecified SNOMED Code(s): 69078530 (10) Diabetes mellitus Current Visit: No Status: Chronic Qualifiers: Diabetes mellitus type: type 2 Diabetes mellitus watermelon inspector insulin use: without retirement use Diabetes mellitus complication status: with hyperglycemia Qualified Code(s): E11.65 - Type 2 diabetes mellitus with hyperglycemia SNOMED Code(s): 36575795 (11) Polysubstance abuse Current Visit: No Status: Chronic Remote history of IV heroine use. On suboxone at home. SNOMED Code(s): 483449187 (12) Tobacco abuse Current Visit: No Status: Chronic NRT per the primary team. SNOMED Code(s): 456179533 - Recommendations Recommendations: Await blood cultures to finalize. Send sputum for culture if the patient is able to provide an adequate specimen. Pain management per the primary team. Continue Augmentin 875 mg by mouth twice a day. Continue doxycycline 100 mg by mouth twice a day. Duration of treatment depends on the clinical picture, but can likely complete a total of 14 days of treatment. Treat through 05/16/19. G Monitor renal function and for drug toxicity and dose-adjust antibiotics. Contact precautions per hospital policy. Consult Discharge Plan - Plan Referrals: Gerard Srivastava MD [Primary Care Provider] - (Called and left message with name and birthdate..)
[2019-05-08 11:22] VITALS: BP 132/77
--- NOTE | 2019-05-08 13:29 | Physician Discharge Referral ---
<Jake Hand - Last Filed: 05/08/19 13:28> Home Health/Hosp Referral Info Transfer to: Home Health Attending Provider: Leelee Marques DO Provider in Charge Post Discharge: PCP - Diagnosis (1) Sepsis Priority: Primary Status: Resolved (2) UTI (urinary tract infection) Priority: Secondary Status: Acute (3) Acute encephalopathy Priority: Secondary Status: Acute (4) Cirrhosis Priority: Secondary Status: Chronic (5) Community acquired pneumonia Priority: Secondary Status: Suspected (6) Hypophosphatasia Priority: Secondary Status: Acute - Respiratory Orders Smoking Cessation: Smoking cessation has been advised. For more information, call the [place] Tobacco Quit Line at 7-553-QLBF-NOW. - Diet/Nutrition Diet/Nutrition Orders: Regular - Services Needed Following services are medically necessary services: Nursing, Home Health Aide, Physical Therapy, Occupational Therapy - Transfer Medications Prescriptions: Amoxicillin/Clavulanate [Augmentin] 875 mg PO BIDWM 8 Days #16 tablet Transmission Status: Received by [facility] Lactobacillus [Culturelle] 1 each PO BID #14 cap.sprink Transmission Status: Received by [facility] Doxycycline 100 mg PO BID 8 Days #16 capsule Transmission Status: Received by [facility] Ferrous Sulfate 325 mg PO BIDWM #60 tablet Transmission Status: Received by [facility] Omeprazole [PriLOSEC] 20 mg PO DAILY@0730 #30 capsule.dr Transmission Status: Received by [facility] [employer] Home Medications: Metformin HCl [Glucophage] 1,000 mg PO BIDWM 01/25/18 [History] Albuterol Neb [Proventil Neb] 3 ml IH QID PRN 12/28/18 [History] Amlodipine Besylate 5 mg PO DAILY 12/28/18 [History] Atorvastatin [Lipitor] 40 mg PO HS 12/28/18 [History] Fluticasone/Vilanterol [Breo Ellipta 200-25 Mcg INH] 1 puff IH BID 12/28/18 [History] Lactulose [Enulose] 20 gm PO BID 12/28/18 [History] Metoclopramide HCl 5 mg PO Q8H PRN 12/28/18 [History] Tamsulosin HCl [Flomax] 0.4 mg PO DAILY 12/28/18 [History] Buprenorphine HCl/Naloxone HCl [Buprenorphin-Naloxon 8-2 mg Sl] 1.5 tab SL DAILY 05/03/19 [History] Amoxicillin/Clavulanate [Augmentin] 875 mg PO BIDWM 8 Days #16 tablet 05/08/19 [Rx] Doxycycline 100 mg PO BID 8 Days #16 capsule 05/08/19 [Rx] Ferrous Sulfate 325 mg PO BIDWM #60 tablet 05/08/19 [Rx] Gabapentin [Neurontin] 400 mg PO TID capsule 05/08/19 [Rx] Lactobacillus [Culturelle] 1 each PO BID #14 cap.sprink 05/08/19 [Rx] Omeprazole [PriLOSEC] 20 mg PO DAILY@0730 #30 capsule.dr 05/08/19 [Rx] traZODone [TraZODone] 25 mg PO HS tablet 05/08/19 [Rx] Allergies/Adverse Reactions: Allergy/AdvReac Type Severity Reaction Status Date / Time No Known Allergies Allergy Verified 12/28/18 21:47 Certification: Further, I certify that my clinical findings support that this patient is homebound (i.e. absences from home require considerable and taxing effort and are for medical reasons or spiritism services or infrequently or short duration when for other reasons) because: Homebound Reason: Absences from home are contraindicated except to recieve medical care, Leaving home requires considerable and taxing effort due to condition Attestation: My signature below is to certify that this patient is under my care and that I, or nurse practitioner, or a physician's assistant facility manager working with me, has a [id number] encounter with this patient. <Leelee Marques - Last Filed: 05/08/19 14:16> - Diagnosis (1) Pneumonia Priority: Secondary Status: Acute (2) UTI (urinary tract infection) Priority: Secondary Status: Acute (3) COPD exacerbation Priority: Secondary Status: Resolved (4) Diabetes mellitus Priority: Secondary Status: Chronic (5) Tobacco abuse Priority: Secondary Status: Chronic (6) Polysubstance abuse Priority: Secondary Status: Chronic (7) Cirrhosis Priority: Secondary Status: Chronic (8) Alcohol use Priority: Secondary Status: Chronic (9) Debility Priority: Secondary Status: Chronic (10) DVT prophylaxis Priority: Secondary Status: Acute (11) Acute encephalopathy Priority: Primary Status: Resolved - Respiratory Orders None Smoking Cessation: Smoking cessation has been advised. For more information, call the [place] Tobacco Quit Line at 3-007-ZHYT-NOW. Certification: Further, I certify that my clinical findings support that this patient is homebound (i.e. absences from home require considerable and taxing effort and are for medical reasons or spiritism services or infrequently or short duration when for other reasons) because: Attestation: My signature below is to certify that this patient is under my care and that I, or nurse practitioner, or a physician's assistant facility manager working with me, has a [id number] encounter with this patient.
== END 2019-05-08 13:31 | disposition home health service (06) | DRG 720 ==
LOC: 2ANU 16:43 → EMEROOARM 16:43 → SUATTDRO 20:02 → 2ANU 21:19
PROVIDERS: ADMIT Internal Medicine; ATTEND Internal Medicine

== ENCOUNTER 2019-12-14 22:40 | Inpatient (IN) ==
[2019-12-14] MEDS ORDERED: 0.9 % Sodium Chloride 1,000 ML IVC ONE (22:53)
[2019-12-14] MEDS ORDERED: Isovue-370 500 ML BOTTLE IVP ONE (22:56)
[2019-12-14 23:01] LABS: ABG Base Excess 0 mEq/L (-2 to 3); ABG HCO3 26 mEq/L (21-27); ABG Oxygen Saturation 87 % (95-98); ABG PCO2 46 mmHg (35-45); ABG PH 7.36 pH Units (7.32-7.45); ABG PO2 56 mmHg (85-104); ABG TCO2 27 mEq/L (20-26)
[2019-12-14 23:29] LABS: Bilirubin,Urine Negative (Negative); Blood,Urine Negative (Negative); Clarity,Urine Cloudy (Clear); Color,Urine Yellow (Yellow); Glucose,Urine (UA) Normal (Normal); Ketones,Urine Negative (Negative); Leukocyte Esterase,Urine Large (Negative); Nitrite,Urine Negative (Negative); Protein,Urine Trace mg/dL (Neg-Trace); Specific Gravity,Urine 1.019 (1.010-1.025); Urobilinogen,Urine Normal (Normal)
[2019-12-14 23:31] LABS: Bacteria,Urine Many per hpf (None-Few); Hyaline Casts,Urine Moderate per lpf (None-Few); RBC,Urine 0-3 per hpf (0-3); Squamous Epithelial Cell,Urine Few per lpf (None-Few); WBC,Urine TNTC per hpf (0-3)
[2019-12-14] MEDS ORDERED: cefTRIAXone 1,000 MG in Water for inj. (sterile) 10 ML IVP ONE (23:56)
[2019-12-14] MEDS ORDERED: Azithromycin 500 MG in 0.9 % Sodium Chloride 250 ML IVPB ONE (23:56)
[2019-12-15 01:02] LABS: Basophils % 0.3 %; Eosinophils % 0.2 %; Hematocrit 39.4 % (37.5-50.1); Hemoglobin 12.1 g/dL (12.9-16.9); Immature Granulocytes % 0.3 % (0-4); Lymphocytes # 1.1 K/mcL (0.6-4.6); Mean Corpuscular HGB Conc 30.7 g/dL (31.6-35.5); Mean Corpuscular Hemoglobin 27.7 pg (28.0-33.3); Mean Corpuscular Volume 90.2 fL (83.0-100.0); Mean Platelet Volume 9.1 fL (9.4-12.4); Monocytes # 0.5 K/mcL (0.0-1.3); Monocytes % 4.2 %; Neutrophils # 9.2 K/mcL (1.6-8.9); Platelet Count 386 K/mcL (140-400); Red Blood Count 4.37 M/mcL (4.19-5.50); Red Cell Distribution Width 16.1 % (11.5-14.5); White Blood Count 10.8 K/mcL (4.3-11.1)
[2019-12-15 01:03] LABS: Prothrombin Time 11.6 Seconds (9.4-12.1)
[2019-12-15 01:06] LABS: Activated Partial Thrombo Time 37.2 Seconds (26.0-36.0)
[2019-12-15 01:21] LABS: Alanine Aminotransferase 10 Units/L (7-52); Albumin 3.6 g/dL (3.5-5.7); Albumin/Globulin Ratio 1.2 (1.1-2.2); Alkaline Phosphatase 68 Units/L (34-104); Aspartate Amino Transferase 12 Units/L (13-39); BUN/Creatinine Ratio 16 (6-26); Bilirubin,Direct 0.1 mg/dL (0.0-0.2); Bilirubin,Indirect 0.3 mg/dL (0.0-1.0); Bilirubin,Total 0.4 mg/dL (0.3-1.0); Blood Urea Nitrogen 17 mg/dL (8-23); C-Reactive Protein 40 mg/L (Less than 10); Calcium 9.1 mg/dL (8.6-10.3); Carbon Dioxide 23 mEq/L (23-29); Chloride 102 mEq/L (98-107); Globulin 3.1 g/dL (2.4-3.5); Glucose 100 mg/dL (70-105); Lactate Dehydrogenase 111 Units/L (140-271); Magnesium 1.7 mg/dL (1.6-2.6); Osmolality,Calculated 276 (280-300); Phosphorous 3.3 mg/dL (2.7-4.5); Sodium 132 mEq/L (136-145); Total Protein 6.7 g/dL (6.4-8.9); Troponin I < 0.03 ng/mL (< 0.04); eGFR For African Americans > 60 (> 60); eGFR For Non-African Americans > 60 (> 60)
[2019-12-15 01:39] LABS: Ferritin 12 ng/mL (20-250)
[2019-12-15] MEDS ORDERED: Naloxone 0.4 MG/ML INJ IVP PRN (06:20)
[2019-12-15] MEDS ORDERED: *HR* Dextrose 50 % in Water (Syg) 50 ML SYRINGE IVP PRN (06:37)
[2019-12-15] MEDS ORDERED: Dextrose Gel 15 GM/37.5 ML TUBE PO PRN ×2 (06:37)
[2019-12-15] MEDS ORDERED: D5% in Water 1,000 ML IVC PRN (06:37)
[2019-12-15] MEDS: Insulin LISPRO 300 UNITS/3 ML VIAL SQ SCH ×4 (08:11→21:20)
[2019-12-15] MEDS: Piperacillin/Tazobactam 3.375 GM in 0.9 % Sodium Chloride Mini Bag 100 ML IVPB SCH ×3 (09:33→23:18)
[2019-12-15] MEDS: Nicotine 21 MG PATCH.TD24 TD SCH (09:34)
[2019-12-15] MEDS: Gabapentin 400 MG CAPSULE PO SCH ×2 (16:11→20:34)
[2019-12-15] MEDS: *HR* Heparin 5,000 UNIT/ML VIAL SQ SCH (18:43)
[2019-12-15] MEDS: traZODone 50 MG TABLET PO SCH (20:34)
[2019-12-15] MEDS: Lactulose Oral Soln 20 GM/30 ML UDC PO SCH (20:34)
[2019-12-16] MEDS ORDERED: Azithromycin 500 MG in D5% in Water 250 ML IVPB SCH (01:00)
[2019-12-16] MEDS: *HR* Heparin 5,000 UNIT/ML VIAL SQ SCH ×2 (05:25→17:26)
[2019-12-16] MEDS ORDERED: cefTRIAXone 1,000 MG in Water for inj. (sterile) 10 ML IVP SCH (09:00)
[2019-12-16] MEDS ORDERED: (Buprenorphine Hcl/Naloxone Hcl [Buprenorphin-Naloxon) SL SCH (09:00)
[2019-12-16] MEDS: Lactulose Oral Soln 20 GM/30 ML UDC PO SCH ×2 (09:03→20:41)
[2019-12-16] MEDS: Gabapentin 400 MG CAPSULE PO SCH ×3 (09:03→20:41)
[2019-12-16] MEDS: Nicotine 21 MG PATCH.TD24 TD SCH (09:03)
[2019-12-16] MEDS: Piperacillin/Tazobactam 3.375 GM in 0.9 % Sodium Chloride Mini Bag 100 ML IVPB SCH ×2 (09:03→14:41)
[2019-12-16] MEDS: Insulin LISPRO 300 UNITS/3 ML VIAL SQ SCH ×4 (09:05→20:34)
[2019-12-16] MEDS ORDERED: Albuterol 2.5 MG/3 ML NEBULIZER IH PRN (12:28)
[2019-12-16] MEDS: *HR* Buprenorphine HCl 8 MG TAB.SUBL SL SCH (14:41)
[2019-12-16] MEDS: Budesonide/Formoterol 160/4.5 1 PUFF INH IH SCH (20:01)
[2019-12-16] MEDS: traZODone 50 MG TABLET PO SCH (20:41)
[2019-12-17] MEDS: Piperacillin/Tazobactam 3.375 GM in 0.9 % Sodium Chloride Mini Bag 100 ML IVPB SCH ×2 (00:04→10:09)
[2019-12-17] MEDS: *HR* Heparin 5,000 UNIT/ML VIAL SQ SCH (05:10)
[2019-12-17 06:16] LABS: BUN/Creatinine Ratio 10 (6-26); Blood Urea Nitrogen 9 mg/dL (8-23); Calcium 9.7 mg/dL (8.6-10.3); Carbon Dioxide 25 mEq/L (23-29); Chloride 101 mEq/L (98-107); Glucose 134 mg/dL (70-105); Osmolality,Calculated 287 (280-300); Potassium 4.1 mEq/L (3.5-5.1); Sodium 138 mEq/L (136-145); eGFR For African Americans > 60 (> 60); eGFR For Non-African Americans > 60 (> 60)
[2019-12-17] MEDS ORDERED: *HR* Midazolam HCl 2 MG/2 ML VIAL ONE (07:06)
[2019-12-17] MEDS ORDERED: *HR* FentaNYL (PF) 100 MCG/2 ML VIAL ONE (07:06)
[2019-12-17] MEDS: Insulin LISPRO 300 UNITS/3 ML VIAL SQ SCH ×2 (07:42→12:19)
[2019-12-17] MEDS ORDERED: Ondansetron 4 MG/2 ML VIAL IVP ONE ×2 (08:40→15:52)
[2019-12-17] MEDS: Nicotine 21 MG PATCH.TD24 TD SCH (10:09)
[2019-12-17] MEDS ORDERED: Doxycycline 100 MG CAPSULE PO SCH (10:15)
[2019-12-17 10:32] LABS: Basophils % 0.2 %; Eosinophils # 0.5 K/mcL (0.0-0.6); Eosinophils % 4.5 %; Hematocrit 33.8 % (37.5-50.1); Hemoglobin 10.7 g/dL (12.9-16.9); Immature Granulocytes % 0.3 % (0-4); Lymphocytes % 20.5 %; Mean Corpuscular HGB Conc 31.7 g/dL (31.6-35.5); Mean Corpuscular Hemoglobin 28.5 pg (28.0-33.3); Mean Corpuscular Volume 89.9 fL (83.0-100.0); Mean Platelet Volume 9.5 fL (9.4-12.4); Monocytes # 0.5 K/mcL (0.0-1.3); Monocytes % 4.6 %; Neutrophils # 6.9 K/mcL (1.6-8.9); Platelet Count 370 K/mcL (140-400); Red Blood Count 3.76 M/mcL (4.19-5.50); Red Cell Distribution Width 16.1 % (11.5-14.5); Segmented Neutrophils % 69.9 %; White Blood Count 9.9 K/mcL (4.3-11.1)
[2019-12-17] MEDS: Budesonide/Formoterol 160/4.5 1 PUFF INH IH SCH (10:38)
[2019-12-17] MEDS: *HR* Buprenorphine HCl 8 MG TAB.SUBL SL SCH (12:10)
[2019-12-17] MEDS: Gabapentin 400 MG CAPSULE PO SCH ×2 (12:10→12:20)
[2019-12-17] MEDS: Lactulose Oral Soln 20 GM/30 ML UDC PO SCH (12:10)
[2019-12-17 13:07] VITALS: BP 123/81
[2019-12-17 13:55] LABS: Appearance of Body Fluid Slightly Hazy (Clear); Volume of Body Fluid 24 mL
[2019-12-17] MEDS ORDERED: Lidocaine -MPF 4% 5 ML AMPUL INFILT ONE (15:52)
[2019-12-17] MEDS ORDERED: Lidocaine 2% Syringe 100 MG/5 ML IV ONE (15:52)
[2019-12-17] MEDS ORDERED: *HR* Propofol 500 MG/50 ML BOTTLE IVC ONE (15:52)
[2019-12-17] MEDS ORDERED: *HR* Succinylcholine 200 MG/10 ML VIAL IVP ONE (15:52)
== END 2019-12-17 15:53 | disposition home health service (06) | DRG 871 ==
LOC: EMEROOARM 22:40 → 2NENU 22:40 → SUATTDRO 12-15 04:43 → 2NENU 12-15 05:19 → 3BNU 12-15 21:09
PROVIDERS: ADMIT Internal Medicine; ATTEND Internal Medicine

== ENCOUNTER 2021-02-12 22:10 | Inpatient (IN) ==
[2021-02-12] MEDS ORDERED: 0.9 % Sodium Chloride 1,000 ML ONE (22:31)
[2021-02-12 22:59] LABS: Hematocrit 49.8 % (37.5-50.1); Hemoglobin 15.3 g/dL (12.9-16.9); Mean Corpuscular HGB Conc 30.7 g/dL (31.6-35.5); Platelet Count 405 K/mcL (140-400); Red Blood Count 5.47 M/mcL (4.19-5.50); Red Cell Distribution Width 16.5 % (11.5-14.5); White Blood Count 8.8 K/mcL (4.3-11.1)
[2021-02-12] MEDS ORDERED: 0.9 % Sodium Chloride 1,000 ML IVC ONE ×2 (23:13→23:41)
[2021-02-12 23:16] LABS: Alanine Aminotransferase 31 Units/L (7-52); Albumin 3.7 g/dL (3.5-5.7); Albumin/Globulin Ratio 1.1 (1.1-2.2); Alkaline Phosphatase 104 Units/L (34-104); Aspartate Amino Transferase 30 Units/L (13-39); BUN/Creatinine Ratio 18 (6-26); Bilirubin,Direct 0.2 mg/dL (0.0-0.2); Bilirubin,Indirect 0.3 mg/dL (0.0-1.0); Bilirubin,Total 0.5 mg/dL (0.3-1.0); Blood Urea Nitrogen 30 mg/dL (8-23); Calcium 9.2 mg/dL (8.6-10.3); Carbon Dioxide 23 mEq/L (23-29); Chloride 99 mEq/L (98-107); Ethanol < 10 mg/dL (Less than 10); Globulin 3.5 g/dL (2.4-3.5); Glucose 124 mg/dL (70-105); Osmolality,Calculated 288 (280-300); Potassium 4.6 mEq/L (3.5-5.1); Sodium 135 mEq/L (136-145); Total Protein 7.2 g/dL (6.4-8.9); eGFR For African Americans 52 (> 60); eGFR For Non-African Americans 43 (> 60)
[2021-02-12 23:17] LABS: Troponin I < 0.03 ng/mL (< 0.04)
[2021-02-12 23:24] LABS: Large Platelets Present (Not Present); Lymphocytes # 1.8 K/mcL (0.6-4.6); Monocytes # 0.5 K/mcL (0.0-1.3); Neutrophils # 6.3 K/mcL (1.6-8.9); Platelet Estimate Normal (Normal)
[2021-02-12] MEDS ORDERED: cefTRIAXone 1,000 MG in Water for inj. (sterile) 10 ML IVP ONE (23:41)
[2021-02-12 23:58] LABS: Bilirubin,Urine Negative (Negative); Blood,Urine Negative (Negative); Clarity,Urine Clear (Clear); Color,Urine Light-Yellow (Yellow); Glucose,Urine (UA) Normal (Normal); Ketones,Urine Negative (Negative); Leukocyte Esterase,Urine Negative (Negative); Nitrite,Urine Negative (Negative); Protein,Urine Trace mg/dL (Neg-Trace); Specific Gravity,Urine 1.021 (1.010-1.025); Urobilinogen,Urine Normal (Normal)
[2021-02-13 00:10] LABS: Amphetamine Screen,Urine Positive ng/mL (Cutoff=1000); Barbiturate Screen,Urine Negative ng/mL (Cutoff=200); Benzodiazepines Screen,Urine Negative ng/mL (Cutoff=200); Cannabinoid Screen,Urine Positive ng/mL (Cutoff = 50); Cocaine Screen,Urine Negative ng/mL (Cutoff= 300); Opiate Screen,Urine Negative ng/mL (Cutoff=300); Phencyclidine Screen,Urine Negative ng/mL (Cutoff=25)
[2021-02-13] MEDS ORDERED: Azithromycin 500 MG in 0.9 % Sodium Chloride 250 ML IVPB ONE (00:48)
[2021-02-13] MEDS ORDERED: MetroNIDAZOLE 500 MG/100 ML 500 MG/100 ML BAG IVPB ONE (00:48)
[2021-02-13] MEDS ORDERED: 0.9 % Sodium Chloride 1,000 ML IVC ONE (00:48)
[2021-02-13 02:22] LABS: Adenovirus Not Detected (Not Detect); Coronavirus 229E Not Detected (Not Detect); Coronavirus HKU1 Not Detected (Not Detect); Coronavirus NL63 Not Detected (Not Detect); Coronavirus OC43 Not Detected (Not Detect)
[2021-02-13 02:23] LABS: Bordetella Pertussis Not Detected (Not Detect); Chlamydophila pneumoniae Not Detected (Not Detect); Human Metapneumovirus Not Detected (Not Detect); Human Rhinovirus/Enterovirus DETECTED (Not Detect); Influenza A Subtype 2009 H1 Not Detected (Not Detect); Influenza B Not Detected (Not Detect); Mycoplasma pneumoniae Not Detected (Not Detect); Parainfluenza Virus 1 Not Detected (Not Detect); Parainfluenza Virus 2 Not Detected (Not Detect); Parainfluenza Virus 3 Not Detected (Not Detect); Parainfluenza Virus 4 Not Detected (Not Detect); Respiratory Syncytial Virus Not Detected (Not Detect); SARS-CoV-2 Not Detected (Not Detect)
[2021-02-13 02:44] LABS: Mixed Venous Blood pCO2 49 mmHg (44-46); Mixed Venous Blood pH 7.23 pH Units (7.34-7.36); Mixed Venous Blood pO2 41 mmHg (35-45)
[2021-02-13 02:44] LABS: Prothrombin Time 11.5 Seconds (9.4-12.1)
[2021-02-13 02:47] LABS: Activated Partial Thrombo Time 26.4 Seconds (26.0-36.0)
[2021-02-13] MEDS ORDERED: Naloxone 0.4 MG/ML INJ IVP PRN (03:05)
[2021-02-13 03:12] LABS: ABG Base Excess -7 mEq/L (-2 to 3); ABG HCO3 21 mEq/L (21-27); ABG Oxygen Saturation 72 % (95-98); ABG PCO2 50 mmHg (35-45); ABG PH 7.23 pH Units (7.32-7.45); ABG PO2 46 mmHg (85-104); ABG TCO2 22 mEq/L (20-26)
[2021-02-13] MEDS ORDERED: 0.9 % Sodium Chloride 1,000 ML ONE (03:36)
[2021-02-13] MEDS ORDERED: methylPREDNISolone 125 MG/2 ML VIAL IVP ONE (03:52)
[2021-02-13] MEDS ORDERED: Ipratropium/Albuterol Neb 3 ML ONE (03:54)
[2021-02-13] MEDS: Norepinephrine 4 MG/254 ML IV.SOLN IVC SCH ×2 (03:55→22:04)
[2021-02-13] MEDS ORDERED: Albumin 25% 12.5gm/50mL 12.5 GM/50 ML IV.SOLN IVPB ONE (04:02)
[2021-02-13] MEDS: Ipratropium/Albuterol Neb 3 ML IH SCH ×5 (04:04→19:52)
[2021-02-13] MEDS ORDERED: Artificial Tears SOLN 15 ML BOTTLE BOTH EYES PRN (04:15)
[2021-02-13] MEDS ORDERED: Ipratropium/Albuterol Neb 3 ML IH SCH (04:30)
[2021-02-13 04:58] LABS: ABG Base Excess -9 mEq/L (-2 to 3); ABG HCO3 21 mEq/L (21-27); ABG Oxygen Saturation 90 % (95-98); ABG PCO2 62 mmHg (35-45); ABG PH 7.14 pH Units (7.32-7.45); ABG PO2 78 mmHg (85-104); ABG TCO2 23 mEq/L (20-26); Blood Gas Modality ASSIST CONTROL; Blood Gas VT 500 cc
[2021-02-13] MEDS: Vancomycin 1,500 MG/265 ML IV.SOLN IVPB SCH (05:50)
[2021-02-13] MEDS: FentaNYL (PF) 1,000 MCG/100 ML IV.SOLN IVC SCH ×3 (05:59→21:39)
[2021-02-13 06:41] LABS: ABG Base Excess -9 mEq/L (-2 to 3); ABG HCO3 20 mEq/L (21-27); ABG Oxygen Saturation 91 % (95-98); ABG PCO2 54 mmHg (35-45); ABG PH 7.17 pH Units (7.32-7.45); ABG PO2 77 mmHg (85-104); ABG TCO2 21 mEq/L (20-26); Blood Gas Modality ASSIST CONTROL; Blood Gas VT 500 cc
[2021-02-13] MEDS ORDERED: Perflutren Lipid Microsphere 1.3 ML in 0.9 % Sodium Chloride 8.7 ML IVP PRN (07:14)
[2021-02-13] MEDS: Piperacillin/Tazobactam 3.375 GM in 0.9 % Sodium Chloride Mini Bag 100 ML IVPB SCH ×3 (08:43→23:26)
[2021-02-13] MEDS: Artificial Tears SOLN 15 ML BOTTLE BOTH EYES SCH ×5 (08:43→23:04)
[2021-02-13] MEDS: Lactulose Oral Soln 20 GM/30 ML UDC PO SCH ×2 (08:44→20:02)
[2021-02-13] MEDS: Pantoprazole 40 MG VIAL IVP SCH (08:44)
[2021-02-13] MEDS: Chlorhexidine Rinse 15 ML MOUTHWASH MM SCH ×2 (08:44→20:02)
[2021-02-13 09:02] LABS: Hematocrit 39.3 % (37.5-50.1); Mean Corpuscular HGB Conc 31.8 g/dL (31.6-35.5); Mean Corpuscular Volume 91.2 fL (83.0-100.0); Mean Platelet Volume 9.2 fL (9.4-12.4); Platelet Count 263 K/mcL (140-400); Red Blood Count 4.31 M/mcL (4.19-5.50); Red Cell Distribution Width 16.6 % (11.5-14.5); White Blood Count 9.6 K/mcL (4.3-11.1)
[2021-02-13 09:10] LABS: Hemoglobin 12.5 g/dL (12.9-16.9)
[2021-02-13 09:21] LABS: Albumin/Globulin Ratio 1.3 (1.1-2.2); Bilirubin,Direct 0.2 mg/dL (0.0-0.2); Bilirubin,Indirect 0.2 mg/dL (0.0-1.0); Bilirubin,Total 0.4 mg/dL (0.3-1.0); Globulin 2.4 g/dL (2.4-3.5); Total Protein 5.4 g/dL (6.4-8.9)
[2021-02-13 09:22] LABS: Calcium 7.6 mg/dL (8.6-10.3); Potassium 4.6 mEq/L (3.5-5.1)
[2021-02-13 09:51] LABS: Lymphocytes # 0.6 K/mcL (0.6-4.6); Monocytes # 0.2 K/mcL (0.0-1.3); Neutrophils # 8.5 K/mcL (1.6-8.9); Platelet Estimate Normal (Normal)
[2021-02-13] MEDS ORDERED: methylPREDNISolone 125 MG/2 ML VIAL IVP SCH (10:00)
[2021-02-13] MEDS: Docusate Oral Soln 100 MG/10 ML UDC GTUBE SCH ×2 (12:24→20:03)
[2021-02-13 14:30] LABS: ABG Base Excess -5 mEq/L (-2 to 3); ABG HCO3 21 mEq/L (21-27); ABG Oxygen Saturation 98 % (95-98); ABG PCO2 41 mmHg (35-45); ABG PH 7.32 pH Units (7.32-7.45); ABG PO2 122 mmHg (85-104); ABG TCO2 23 mEq/L (20-26); Blood Gas Modality ASSIST CONTROL; Blood Gas VT 500 cc
[2021-02-13] MEDS: *HR* Heparin 5,000 UNIT/ML VIAL SQ SCH ×2 (16:12→21:03)
[2021-02-13] MEDS: MethylPREDNISolone 40 MG/ML VIAL IVP SCH (17:24)
[2021-02-13] MEDS: Thiamine (B-1) 100 MG, Folic Acid 1 MG, MVI, adult with vitamin K 10 ML in 0.9 % Sodi... IVPB SCH (17:25)
[2021-02-13 17:35] LABS: VBG Ionized Calcium 1.16 mmol/L (1.15-1.35)
[2021-02-13 17:50] LABS: BUN/Creatinine Ratio 23 (6-26); Blood Urea Nitrogen 32 mg/dL (8-23); Calcium 7.8 mg/dL (8.6-10.3); Carbon Dioxide 23 mEq/L (23-29); Chloride 107 mEq/L (98-107); Glucose 201 mg/dL (70-105); Magnesium 1.5 mg/dL (1.6-2.6); Osmolality,Calculated 295 (280-300); Potassium 4.5 mEq/L (3.5-5.1); Sodium 136 mEq/L (136-145); eGFR For African Americans > 60 (> 60); eGFR For Non-African Americans 51 (> 60)
[2021-02-14] MEDS: Ipratropium/Albuterol Neb 3 ML IH SCH ×7 (00:06→23:41)
[2021-02-14 03:14] LABS: Hematocrit 35.4 % (37.5-50.1); Mean Corpuscular HGB Conc 31.1 g/dL (31.6-35.5); Mean Corpuscular Hemoglobin 27.9 pg (28.0-33.3); Mean Corpuscular Volume 89.8 fL (83.0-100.0); Mean Platelet Volume 9.5 fL (9.4-12.4); Platelet Count 241 K/mcL (140-400); Red Blood Count 3.94 M/mcL (4.19-5.50); Red Cell Distribution Width 16.6 % (11.5-14.5)
[2021-02-14] MEDS: Artificial Tears SOLN 15 ML BOTTLE BOTH EYES SCH ×6 (03:20→23:02)
[2021-02-14 03:33] LABS: Alanine Aminotransferase 18 Units/L (7-52); Albumin 2.7 g/dL (3.5-5.7); Alkaline Phosphatase 53 Units/L (34-104); Aspartate Amino Transferase 12 Units/L (13-39); BUN/Creatinine Ratio 26 (6-26); Bilirubin,Direct 0.1 mg/dL (0.0-0.2); Bilirubin,Indirect 0.2 mg/dL (0.0-1.0); Bilirubin,Total 0.3 mg/dL (0.3-1.0); Blood Urea Nitrogen 33 mg/dL (8-23); Calcium 7.9 mg/dL (8.6-10.3); Carbon Dioxide 22 mEq/L (23-29); Chloride 106 mEq/L (98-107); Globulin 2.6 g/dL (2.4-3.5); Glucose 251 mg/dL (70-105); Osmolality,Calculated 304 (280-300); Potassium 4.2 mEq/L (3.5-5.1); Sodium 139 mEq/L (136-145); Total Protein 5.3 g/dL (6.4-8.9); eGFR For African Americans > 60 (> 60); eGFR For Non-African Americans 56 (> 60)
[2021-02-14 03:34] LABS: White Blood Count 18.1 K/mcL (4.3-11.1)
[2021-02-14] MEDS: Vancomycin 1,500 MG/265 ML IV.SOLN IVPB SCH (04:02)
[2021-02-14 04:28] LABS: Lymphocytes # 1.8 K/mcL (0.6-4.6); Monocytes # 1.1 K/mcL (0.0-1.3); Neutrophils # 15.2 K/mcL (1.6-8.9); Platelet Estimate Normal (Normal)
[2021-02-14] MEDS: *HR* Heparin 5,000 UNIT/ML VIAL SQ SCH ×3 (05:01→21:00)
[2021-02-14] MEDS: MethylPREDNISolone 40 MG/ML VIAL IVP SCH ×2 (05:02→17:18)
[2021-02-14] MEDS: FentaNYL (PF) 1,000 MCG/100 ML IV.SOLN IVC SCH ×3 (05:10→21:06)
[2021-02-14 05:16] LABS: ABG Base Excess -3 mEq/L (-2 to 3); ABG HCO3 23 mEq/L (21-27); ABG Oxygen Saturation 94 % (95-98); ABG PCO2 44 mmHg (35-45); ABG PH 7.32 pH Units (7.32-7.45); ABG PO2 77 mmHg (85-104); ABG TCO2 24 mEq/L (20-26); Blood Gas Modality ASSIST CONTROL; Blood Gas VT 550 cc
[2021-02-14] MEDS ORDERED: *HR* Dextrose 50 % in Water (Vial) 50 ML VIAL IVP PRN (07:36)
[2021-02-14] MEDS ORDERED: Dextrose Gel 15 GM/37.5 ML TUBE PO PRN ×2 (07:36)
[2021-02-14] MEDS ORDERED: D5% in Water 1,000 ML IVC PRN (07:36)
[2021-02-14] MEDS ORDERED: Perflutren Lipid Microsphere 1.3 ML in 0.9 % Sodium Chloride 8.7 ML IVP PRN (07:39)
[2021-02-14] MEDS: Docusate Oral Soln 100 MG/10 ML UDC GTUBE SCH ×2 (07:40→20:04)
[2021-02-14] MEDS: Chlorhexidine Rinse 15 ML MOUTHWASH MM SCH ×2 (07:40→20:04)
[2021-02-14] MEDS: Lactulose Oral Soln 20 GM/30 ML UDC PO SCH ×2 (07:40→20:04)
[2021-02-14] MEDS: Pantoprazole 40 MG VIAL IVP SCH (07:41)
[2021-02-14] MEDS: Piperacillin/Tazobactam 3.375 GM in 0.9 % Sodium Chloride Mini Bag 100 ML IVPB SCH ×3 (07:42→23:01)
[2021-02-14] MEDS: QUEtiapine Fumarate 25 MG TABLET PO SCH (09:32)
[2021-02-14] MEDS: Insulin LISPRO 300 UNITS/3 ML VIAL SUBQ SCH ×3 (12:24→23:02)
[2021-02-14] MEDS ORDERED: *HR* Rocuronium Bromide 50 MG/5 ML VIAL IVP ONE (15:37)
[2021-02-14] MEDS ORDERED: *HR* Midazolam HCl 5 MG/5 ML VIAL IVP ONE (15:37)
[2021-02-14] MEDS ORDERED: *HR* Etomidate 20 MG/10 ML AMPUL IVP ONE (15:37)
[2021-02-14] MEDS: Thiamine (B-1) 100 MG, Folic Acid 1 MG, MVI, adult with vitamin K 10 ML in 0.9 % Sodi... IVPB SCH (17:17)
[2021-02-14] MEDS: Norepinephrine 4 MG/254 ML IV.SOLN IVC SCH (21:05)
[2021-02-14] MEDS: Dexmedetomidine HCl 400 MCG/100 ML MLS IVC SCH (23:06)
[2021-02-15] MEDS: Dexmedetomidine HCl 400 MCG/100 ML MLS IVC SCH ×3 (03:14→14:30)
[2021-02-15] MEDS: FentaNYL (PF) 1,000 MCG/100 ML IV.SOLN IVC SCH (03:19)
[2021-02-15 03:20] LABS: Hematocrit 33.9 % (37.5-50.1); Hemoglobin 10.7 g/dL (12.9-16.9); Mean Corpuscular HGB Conc 31.6 g/dL (31.6-35.5); Mean Corpuscular Hemoglobin 28.1 pg (28.0-33.3); Mean Platelet Volume 9.9 fL (9.4-12.4); Platelet Count 261 K/mcL (140-400); Red Blood Count 3.81 M/mcL (4.19-5.50); White Blood Count 19.7 K/mcL (4.3-11.1)
[2021-02-15] MEDS: Artificial Tears SOLN 15 ML BOTTLE BOTH EYES SCH ×3 (03:20→11:01)
[2021-02-15 03:51] LABS: Alanine Aminotransferase 16 Units/L (7-52); Albumin 2.8 g/dL (3.5-5.7); Alkaline Phosphatase 56 Units/L (34-104); Aspartate Amino Transferase 10 Units/L (13-39); BUN/Creatinine Ratio 35 (6-26); Bilirubin,Direct 0.1 mg/dL (0.0-0.2); Bilirubin,Indirect 0.2 mg/dL (0.0-1.0); Bilirubin,Total 0.3 mg/dL (0.3-1.0); Blood Urea Nitrogen 44 mg/dL (8-23); Calcium 8.5 mg/dL (8.6-10.3); Carbon Dioxide 23 mEq/L (23-29); Chloride 108 mEq/L (98-107); Globulin 2.8 g/dL (2.4-3.5); Glucose 242 mg/dL (70-105); Magnesium 2.4 mg/dL (1.6-2.6); Osmolality,Calculated 309 (280-300); Potassium 4.8 mEq/L (3.5-5.1); Sodium 140 mEq/L (136-145); Total Protein 5.6 g/dL (6.4-8.9); eGFR For African Americans > 60 (> 60); eGFR For Non-African Americans 58 (> 60)
[2021-02-15] MEDS: Ipratropium/Albuterol Neb 3 ML IH SCH ×5 (03:56→20:40)
[2021-02-15 04:34] LABS: ABG Base Excess -1 mEq/L (-2 to 3); ABG HCO3 23 mEq/L (21-27); ABG Oxygen Saturation 95 % (95-98); ABG PCO2 37 mmHg (35-45); ABG PH 7.41 pH Units (7.32-7.45); ABG PO2 76 mmHg (85-104); ABG TCO2 24 mEq/L (20-26); Blood Gas VT 550 cc
[2021-02-15] MEDS: *HR* Heparin 5,000 UNIT/ML VIAL SQ SCH ×3 (05:00→21:00)
[2021-02-15] MEDS: MethylPREDNISolone 40 MG/ML VIAL IVP SCH ×2 (05:00→16:22)
[2021-02-15] MEDS: Insulin LISPRO 300 UNITS/3 ML VIAL SUBQ SCH ×3 (05:00→17:48)
[2021-02-15] MEDS: Chlorhexidine Rinse 15 ML MOUTHWASH MM SCH ×2 (08:31→18:44)
[2021-02-15] MEDS: Lactulose Oral Soln 20 GM/30 ML UDC PO SCH ×2 (08:31→18:44)
[2021-02-15] MEDS: Pantoprazole 40 MG VIAL IVP SCH (08:31)
[2021-02-15] MEDS: Docusate Oral Soln 100 MG/10 ML UDC GTUBE SCH ×2 (08:31→18:44)
[2021-02-15] MEDS: Piperacillin/Tazobactam 3.375 GM in 0.9 % Sodium Chloride Mini Bag 100 ML IVPB SCH ×2 (08:32→16:21)
[2021-02-15] MEDS: QUEtiapine Fumarate 25 MG TABLET PO SCH (08:32)
[2021-02-15 10:05] LABS: Hematocrit 36.3 % (37.5-50.1); Hemoglobin 11.5 g/dL (12.9-16.9); Mean Corpuscular HGB Conc 31.7 g/dL (31.6-35.5); Mean Corpuscular Volume 88.5 fL (83.0-100.0); Mean Platelet Volume 9.6 fL (9.4-12.4); Nucleated Red Blood Cells 0.1 /100 WBC (0); Platelet Count 277 K/mcL (140-400); Red Cell Distribution Width 16.8 % (11.5-14.5); White Blood Count 21.6 K/mcL (4.3-11.1)
[2021-02-15 10:28] LABS: Lymphocytes # 0.4 K/mcL (0.6-4.6); Monocytes # 0.2 K/mcL (0.0-1.3); Platelet Estimate Normal (Normal)
[2021-02-15 10:29] LABS: Large Platelets Present (Not Present)
[2021-02-15] MEDS: *HR* LORazepam 2 MG/ML VIAL IVP PRN ×3 (11:07→19:05)
[2021-02-15] MEDS: Thiamine (B-1) 100 MG, Folic Acid 1 MG, MVI, adult with vitamin K 10 ML in 0.9 % Sodi... IVPB SCH (16:23)
[2021-02-16] MEDS: Dexmedetomidine HCl 400 MCG/100 ML MLS IVC SCH ×7 (00:07→22:10)
[2021-02-16] MEDS: Piperacillin/Tazobactam 3.375 GM in 0.9 % Sodium Chloride Mini Bag 100 ML IVPB SCH ×4 (00:08→23:58)
[2021-02-16] MEDS: Insulin LISPRO 300 UNITS/3 ML VIAL SUBQ SCH ×4 (00:09→18:13)
[2021-02-16] MEDS: Ipratropium/Albuterol Neb 3 ML IH SCH ×7 (00:10→23:23)
[2021-02-16] MEDS: Norepinephrine 4 MG/254 ML IV.SOLN IVC SCH (00:12)
[2021-02-16 03:40] LABS: Basophils % 0.1 %; Hematocrit 38.8 % (37.5-50.1); Hemoglobin 12.4 g/dL (12.9-16.9); Immature Granulocytes % 0.6 % (0-4); Lymphocytes % 4.1 %; Mean Corpuscular Hemoglobin 27.8 pg (28.0-33.3); Mean Platelet Volume 9.5 fL (9.4-12.4); Monocytes # 0.7 K/mcL (0.0-1.3); Neutrophils # 21.6 K/mcL (1.6-8.9); Platelet Count 292 K/mcL (140-400); Red Blood Count 4.46 M/mcL (4.19-5.50); Red Cell Distribution Width 16.2 % (11.5-14.5); Segmented Neutrophils % 92.2 %; White Blood Count 23.4 K/mcL (4.3-11.1)
[2021-02-16 04:25] LABS: Alanine Aminotransferase 20 Units/L (7-52); Albumin 3.2 g/dL (3.5-5.7); Alkaline Phosphatase 71 Units/L (34-104); Aspartate Amino Transferase 17 Units/L (13-39); BUN/Creatinine Ratio 36 (6-26); Bilirubin,Direct 0.1 mg/dL (0.0-0.2); Bilirubin,Indirect 0.3 mg/dL (0.0-1.0); Bilirubin,Total 0.4 mg/dL (0.3-1.0); Blood Urea Nitrogen 33 mg/dL (8-23); Calcium 8.9 mg/dL (8.6-10.3); Carbon Dioxide 28 mEq/L (23-29); Chloride 102 mEq/L (98-107); Globulin 3.3 g/dL (2.4-3.5); Glucose 187 mg/dL (70-105); Magnesium 1.8 mg/dL (1.6-2.6); Osmolality,Calculated 298 (280-300); Potassium 3.5 mEq/L (3.5-5.1); Sodium 138 mEq/L (136-145); Total Protein 6.5 g/dL (6.4-8.9); eGFR For African Americans > 60 (> 60); eGFR For Non-African Americans > 60 (> 60)
[2021-02-16] MEDS: *HR* Heparin 5,000 UNIT/ML VIAL SQ SCH ×3 (05:01→21:06)
[2021-02-16] MEDS: MethylPREDNISolone 40 MG/ML VIAL IVP SCH (05:01)
[2021-02-16] MEDS: *HR* LORazepam 2 MG/ML VIAL IVP PRN ×4 (05:37→13:28)
[2021-02-16] MEDS: Pantoprazole 40 MG VIAL IVP SCH (08:36)
[2021-02-16] MEDS: Docusate Oral Soln 100 MG/10 ML UDC GTUBE SCH ×2 (08:36→21:00)
[2021-02-16] MEDS: Chlorhexidine Rinse 15 ML MOUTHWASH MM SCH ×2 (08:36→21:00)
[2021-02-16] MEDS: Lactulose Oral Soln 20 GM/30 ML UDC PO SCH ×2 (08:54→21:00)
[2021-02-16] MEDS: QUEtiapine Fumarate 25 MG TABLET PO SCH (08:54)
[2021-02-16] MEDS ORDERED: *HR* LORazepam 2 MG/ML VIAL ONE (11:28)
[2021-02-16] MEDS ORDERED: *HR* LORazepam 2 MG/ML VIAL IVP ONE (11:31)
[2021-02-16] MEDS: *HR* Metoprolol 5 MG/5 ML VIAL IVP SCH ×2 (11:48→18:12)
[2021-02-16] MEDS: *HR* Buprenorphine HCl 8 MG TAB.SUBL SL SCH ×2 (12:08→13:43)
[2021-02-16] MEDS: Thiamine (B-1) 500 MG in 0.9 % Sodium Chloride 50 ML IVPB SCH ×2 (16:10→21:05)
[2021-02-16 18:23] LABS: VBG Ionized Calcium 1.21 mmol/L (1.15-1.35)
[2021-02-16 18:37] LABS: Magnesium 1.7 mg/dL (1.6-2.6); Phosphorous 2.3 mg/dL (2.7-4.5)
[2021-02-16 18:38] LABS: BUN/Creatinine Ratio 34 (6-26); Blood Urea Nitrogen 29 mg/dL (8-23); Calcium 8.9 mg/dL (8.6-10.3); Carbon Dioxide 29 mEq/L (23-29); Chloride 103 mEq/L (98-107); Glucose 177 mg/dL (70-105); Osmolality,Calculated 296 (280-300); Potassium 4.1 mEq/L (3.5-5.1); Sodium 138 mEq/L (136-145); eGFR For African Americans > 60 (> 60); eGFR For Non-African Americans > 60 (> 60)
[2021-02-17] MEDS: *HR* Metoprolol 5 MG/5 ML VIAL IVP SCH ×4 (00:12→17:54)
[2021-02-17] MEDS: Dexmedetomidine HCl 400 MCG/100 ML MLS IVC SCH ×7 (00:58→21:05)
[2021-02-17 03:08] LABS: Hematocrit 39.3 % (37.5-50.1); Hemoglobin 13.1 g/dL (12.9-16.9); Mean Corpuscular HGB Conc 33.3 g/dL (31.6-35.5); Mean Corpuscular Hemoglobin 28.6 pg (28.0-33.3); Mean Corpuscular Volume 85.8 fL (83.0-100.0); Mean Platelet Volume 9.5 fL (9.4-12.4); Platelet Count 255 K/mcL (140-400); Red Blood Count 4.58 M/mcL (4.19-5.50); Red Cell Distribution Width 15.9 % (11.5-14.5); White Blood Count 13.9 K/mcL (4.3-11.1)
[2021-02-17 03:18] LABS: VBG Ionized Calcium 1.17 mmol/L (1.15-1.35)
[2021-02-17 03:32] LABS: Alanine Aminotransferase 23 Units/L (7-52); Albumin 2.8 g/dL (3.5-5.7); Albumin/Globulin Ratio 0.9 (1.1-2.2); Alkaline Phosphatase 70 Units/L (34-104); Aspartate Amino Transferase 24 Units/L (13-39); BUN/Creatinine Ratio 36 (6-26); Bilirubin,Total 0.5 mg/dL (0.3-1.0); Blood Urea Nitrogen 29 mg/dL (8-23); Calcium 8.6 mg/dL (8.6-10.3); Carbon Dioxide 29 mEq/L (23-29); Chloride 102 mEq/L (98-107); Glucose 161 mg/dL (70-105); Magnesium 1.9 mg/dL (1.6-2.6); Osmolality,Calculated 297 (280-300); Potassium 3.9 mEq/L (3.5-5.1); Sodium 139 mEq/L (136-145); Total Protein 5.8 g/dL (6.4-8.9); eGFR For African Americans > 60 (> 60); eGFR For Non-African Americans > 60 (> 60)
[2021-02-17] MEDS: Ipratropium/Albuterol Neb 3 ML IH SCH ×6 (04:02→23:12)
[2021-02-17] MEDS: Insulin LISPRO 300 UNITS/3 ML VIAL SUBQ SCH ×4 (05:38→18:14)
[2021-02-17] MEDS: *HR* Heparin 5,000 UNIT/ML VIAL SQ SCH ×3 (05:38→21:34)
[2021-02-17] MEDS: *HR* LORazepam 2 MG/ML VIAL IVP PRN (05:55)
[2021-02-17] MEDS: Chlorhexidine Rinse 15 ML MOUTHWASH MM SCH ×2 (08:04→21:34)
[2021-02-17] MEDS: Pantoprazole 40 MG VIAL IVP SCH (08:04)
[2021-02-17] MEDS: MethylPREDNISolone 40 MG/ML VIAL IVP SCH (08:04)
[2021-02-17] MEDS: Piperacillin/Tazobactam 3.375 GM in 0.9 % Sodium Chloride Mini Bag 100 ML IVPB SCH ×2 (08:04→17:55)
[2021-02-17] MEDS: Lactulose Oral Soln 20 GM/30 ML UDC PO SCH ×2 (08:05→21:34)
[2021-02-17] MEDS: QUEtiapine Fumarate 25 MG TABLET PO SCH (08:05)
[2021-02-17] MEDS: Docusate Oral Soln 100 MG/10 ML UDC GTUBE SCH ×2 (08:05→21:34)
[2021-02-17] MEDS: Thiamine (B-1) 500 MG in 0.9 % Sodium Chloride 50 ML IVPB SCH ×3 (08:09→21:34)
[2021-02-17] MEDS: *HR* Buprenorphine HCl 8 MG TAB.SUBL SL SCH (08:40)
[2021-02-17] MEDS: D5% in 0.9% NACL 1,000 ML IVC SCH (17:55)
[2021-02-17] MEDS ORDERED: Haloperidol Lactate 5 MG/ML VIAL IM ONE (18:39)
[2021-02-17] MEDS ORDERED: *HR* LORazepam 2 MG/ML VIAL IVP ONE (22:04)
[2021-02-17] MEDS ORDERED: Water for inj. (sterile) 10 ML ONE (23:53)
[2021-02-17] MEDS ORDERED: Ziprasidone 20 MG/VIAL VIAL IM ONE (23:53)
[2021-02-18] MEDS: *HR* Metoprolol 5 MG/5 ML VIAL IVP SCH ×5 (00:06→23:11)
[2021-02-18] MEDS: Ziprasidone 10 MG, Closed System Device IM Kit 1 EACH in Water for inj. (sterile) 0.5 ML IM ONE ×2 (00:07→00:26)
[2021-02-18] MEDS: Insulin LISPRO 300 UNITS/3 ML VIAL SUBQ SCH ×4 (00:08→17:06)
[2021-02-18] MEDS: Dexmedetomidine HCl 400 MCG/100 ML MLS IVC SCH ×5 (02:40→17:27)
[2021-02-18] MEDS: D5% in 0.9% NACL 1,000 ML IVC SCH ×2 (02:40→13:02)
[2021-02-18] MEDS: Ipratropium/Albuterol Neb 3 ML IH SCH ×6 (03:44→23:55)
[2021-02-18] MEDS: *HR* Heparin 5,000 UNIT/ML VIAL SQ SCH ×3 (05:37→22:50)
[2021-02-18 06:24] LABS: Alanine Aminotransferase 31 Units/L (7-52); Albumin 2.9 g/dL (3.5-5.7); Albumin/Globulin Ratio 0.9 (1.1-2.2); Alkaline Phosphatase 78 Units/L (34-104); Aspartate Amino Transferase 27 Units/L (13-39); BUN/Creatinine Ratio 29 (6-26); Bilirubin,Total 0.5 mg/dL (0.3-1.0); Blood Urea Nitrogen 22 mg/dL (8-23); Calcium 8.6 mg/dL (8.6-10.3); Carbon Dioxide 27 mEq/L (23-29); Chloride 104 mEq/L (98-107); Globulin 3.1 g/dL (2.4-3.5); Glucose 202 mg/dL (70-105); Magnesium 1.6 mg/dL (1.6-2.6); Osmolality,Calculated 295 (280-300); Potassium 3.4 mEq/L (3.5-5.1); Sodium 138 mEq/L (136-145); eGFR For African Americans > 60 (> 60); eGFR For Non-African Americans > 60 (> 60)
[2021-02-18] MEDS: *HR* Buprenorphine HCl 8 MG TAB.SUBL SL SCH (08:25)
[2021-02-18] MEDS: Chlorhexidine Rinse 15 ML MOUTHWASH MM SCH (08:28)
[2021-02-18] MEDS: Pantoprazole 40 MG VIAL IVP SCH (08:28)
[2021-02-18] MEDS: MethylPREDNISolone 40 MG/ML VIAL IVP SCH (08:28)
[2021-02-18] MEDS: Lactulose Oral Soln 20 GM/30 ML UDC PO SCH ×2 (08:29→22:49)
[2021-02-18] MEDS: Docusate Oral Soln 100 MG/10 ML UDC GTUBE SCH ×2 (08:29→22:49)
[2021-02-18] MEDS ORDERED: levoFLOXacin 750 MG/150 ML 750 MG/150 ML BAG IVPB SCH (09:00)
[2021-02-18] MEDS ORDERED: Nicotine 21 MG PATCH.TD24 TD SCH (10:00)
[2021-02-18] MEDS: Thiamine (B-1) 500 MG in 0.9 % Sodium Chloride 50 ML IVPB SCH ×3 (10:54→22:50)
[2021-02-18] MEDS ORDERED: Dextrose Gel 15 GM/37.5 ML TUBE PO PRN ×2 (19:18)
[2021-02-18] MEDS ORDERED: *HR* Dextrose 50 % in Water (Vial) 50 ML VIAL IVP PRN (19:18)
[2021-02-18] MEDS ORDERED: Naloxone 0.4 MG/ML INJ IVP PRN (19:18)
[2021-02-19] MEDS: Dexmedetomidine HCl 400 MCG/100 ML MLS IVC SCH ×2 (01:07→18:19)
[2021-02-19] MEDS: Insulin LISPRO 300 UNITS/3 ML VIAL SUBQ SCH ×4 (01:36→19:49)
[2021-02-19 02:03] LABS: Basophils % 0.2 %; Eosinophils % 0.2 %; Hematocrit 38.9 % (37.5-50.1); Hemoglobin 13.3 g/dL (12.9-16.9); Immature Granulocytes % 0.6 % (0-4); Lymphocytes # 1.2 K/mcL (0.6-4.6); Mean Corpuscular HGB Conc 34.2 g/dL (31.6-35.5); Mean Corpuscular Hemoglobin 28.9 pg (28.0-33.3); Mean Corpuscular Volume 84.6 fL (83.0-100.0); Mean Platelet Volume 9.8 fL (9.4-12.4); Monocytes # 0.4 K/mcL (0.0-1.3); Monocytes % 8.2 %; Neutrophils # 3.6 K/mcL (1.6-8.9); Platelet Count 221 K/mcL (140-400); Red Cell Distribution Width 15.1 % (11.5-14.5); Segmented Neutrophils % 67.8 %
[2021-02-19 02:06] LABS: White Blood Count 5.3 K/mcL (4.3-11.1)
[2021-02-19 02:17] LABS: Alanine Aminotransferase 29 Units/L (7-52); Albumin 2.8 g/dL (3.5-5.7); Alkaline Phosphatase 72 Units/L (34-104); Aspartate Amino Transferase 15 Units/L (13-39); BUN/Creatinine Ratio 23 (6-26); Bilirubin,Total 0.4 mg/dL (0.3-1.0); Blood Urea Nitrogen 17 mg/dL (8-23); Calcium 8.4 mg/dL (8.6-10.3); Carbon Dioxide 25 mEq/L (23-29); Chloride 100 mEq/L (98-107); Globulin 2.9 g/dL (2.4-3.5); Glucose 320 mg/dL (70-105); Magnesium 1.4 mg/dL (1.6-2.6); Osmolality,Calculated 296 (280-300); Phosphorous 2.6 mg/dL (2.7-4.5); Potassium 3.5 mEq/L (3.5-5.1); Sodium 136 mEq/L (136-145); Total Protein 5.7 g/dL (6.4-8.9); eGFR For African Americans > 60 (> 60); eGFR For Non-African Americans > 60 (> 60)
[2021-02-19] MEDS: Ipratropium/Albuterol Neb 3 ML IH SCH ×6 (03:57→23:25)
[2021-02-19] MEDS: *HR* Metoprolol 5 MG/5 ML VIAL IVP SCH ×3 (07:33→19:47)
[2021-02-19] MEDS: *HR* Heparin 5,000 UNIT/ML VIAL SQ SCH ×3 (07:37→22:21)
[2021-02-19] MEDS: levoFLOXacin 750 MG/150 ML 750 MG/150 ML BAG IVPB SCH (10:07)
[2021-02-19] MEDS: Docusate Oral Soln 100 MG/10 ML UDC GTUBE SCH (10:08)
[2021-02-19] MEDS: Thiamine (B-1) 500 MG in 0.9 % Sodium Chloride 50 ML IVPB SCH (10:08)
[2021-02-19] MEDS: Lactulose Oral Soln 20 GM/30 ML UDC PO SCH ×2 (10:08→22:16)
[2021-02-19] MEDS: Pantoprazole 40 MG VIAL IVP SCH (10:08)
[2021-02-19] MEDS: MethylPREDNISolone 40 MG/ML VIAL IVP SCH (10:08)
[2021-02-19] MEDS: Nicotine 21 MG PATCH.TD24 TD SCH (10:09)
[2021-02-19] MEDS: *HR* Buprenorphine HCl 8 MG TAB.SUBL SL SCH (10:09)
[2021-02-19] MEDS ORDERED: *HR* LORazepam 2 MG/ML VIAL IVP PRN ×3 (11:41)
[2021-02-19] MEDS ORDERED: Potassium Phosphate 44 MEQ in 0.9 % Sodium Chloride 250 ML IVPB ONE (14:52)
[2021-02-19] MEDS ORDERED: traZODone 50 MG TABLET PO SCH (21:00)
[2021-02-19] MEDS: Sennosides 8.6 MG TABLET PO SCH (22:15)
[2021-02-20] MEDS: Insulin LISPRO 300 UNITS/3 ML VIAL SUBQ SCH ×3 (01:10→12:35)
[2021-02-20 02:23] LABS: Hematocrit 45.7 % (37.5-50.1); Hemoglobin 14.5 g/dL (12.9-16.9); Mean Corpuscular HGB Conc 31.7 g/dL (31.6-35.5); Mean Corpuscular Hemoglobin 27.3 pg (28.0-33.3); Mean Corpuscular Volume 86.1 fL (83.0-100.0); Mean Platelet Volume 10.3 fL (9.4-12.4); Platelet Count 298 K/mcL (140-400); Red Blood Count 5.31 M/mcL (4.19-5.50); Red Cell Distribution Width 15.6 % (11.5-14.5); White Blood Count 7.5 K/mcL (4.3-11.1)
[2021-02-20 02:41] LABS: BUN/Creatinine Ratio 24 (6-26); Blood Urea Nitrogen 20 mg/dL (8-23); Calcium 8.9 mg/dL (8.6-10.3); Carbon Dioxide 21 mEq/L (23-29); Chloride 104 mEq/L (98-107); Glucose 192 mg/dL (70-105); Osmolality,Calculated 290 (280-300); Potassium 3.4 mEq/L (3.5-5.1); Sodium 136 mEq/L (136-145); eGFR For African Americans > 60 (> 60); eGFR For Non-African Americans > 60 (> 60)
[2021-02-20] MEDS: Ipratropium/Albuterol Neb 3 ML IH SCH ×4 (03:17→16:23)
[2021-02-20] MEDS: *HR* Metoprolol 5 MG/5 ML VIAL IVP SCH ×3 (04:28→13:10)
[2021-02-20] MEDS: *HR* Heparin 5,000 UNIT/ML VIAL SQ SCH ×2 (06:51→15:24)
[2021-02-20 11:57] VITALS: BP 110/62; PULSE 91; TEMP 98; O2SAT 95
[2021-02-20] MEDS: MethylPREDNISolone 40 MG/ML VIAL IVP SCH (13:06)
[2021-02-20] MEDS: Pantoprazole 40 MG VIAL IVP SCH (13:07)
[2021-02-20] MEDS: *HR* Buprenorphine HCl 8 MG TAB.SUBL SL SCH (13:08)
[2021-02-20] MEDS: levoFLOXacin 750 MG/150 ML 750 MG/150 ML BAG IVPB SCH (13:08)
[2021-02-20] MEDS: Lactulose Oral Soln 20 GM/30 ML UDC PO SCH (13:10)
[2021-02-20] MEDS: Sennosides 8.6 MG TABLET PO SCH (13:10)
[2021-02-20] MEDS: Nicotine 21 MG PATCH.TD24 TD SCH (13:10)
[2021-02-20] MEDS: Dexmedetomidine HCl 400 MCG/100 ML MLS IVC SCH (16:58)
== END 2021-02-20 16:45 | disposition home or self-care (01) | DRG 853 ==
LOC: EMEROOARM 22:10 → 2NENU 22:10 → SUATTDRO 02-13 01:08 → OBSVTOIN 02-13 01:08 → ICNU 02-13 02:29 → 2NNU 02-18 01:10
PROVIDERS: ADMIT Internal Medicine; ATTEND Internal Medicine

== ENCOUNTER 2021-04-09 17:58 | Inpatient (IN) ==
[2021-04-09] MEDS ORDERED: Piperacillin/Tazobactam 3.375 GM in Water for inj. (sterile) 20 ML IVP ONE (19:36)
[2021-04-09 20:04] LABS: Basophils % 0.3 %; Eosinophils # 0.3 K/mcL (0.0-0.6); Eosinophils % 2.5 %; Hemoglobin 13.3 g/dL (12.9-16.9); Immature Granulocytes % 0.4 % (0-4); Lymphocytes # 4.1 K/mcL (0.6-4.6); Lymphocytes % 34.3 %; Mean Corpuscular HGB Conc 33.3 g/dL (31.6-35.5); Mean Corpuscular Hemoglobin 28.5 pg (28.0-33.3); Mean Corpuscular Volume 85.8 fL (83.0-100.0); Mean Platelet Volume 9.3 fL (9.4-12.4); Monocytes # 0.7 K/mcL (0.0-1.3); Monocytes % 5.5 %; Neutrophils # 6.8 K/mcL (1.6-8.9); Platelet Count 568 K/mcL (140-400); Red Blood Count 4.66 M/mcL (4.19-5.50); Red Cell Distribution Width 15.9 % (11.5-14.5); White Blood Count 11.9 K/mcL (4.3-11.1)
[2021-04-09 20:55] LABS: Alanine Aminotransferase 15 Units/L (7-52); Albumin 3.2 g/dL (3.5-5.7); Albumin/Globulin Ratio 0.9 (1.1-2.2); Alkaline Phosphatase 70 Units/L (34-104); Aspartate Amino Transferase 14 Units/L (13-39); BUN/Creatinine Ratio 15 (6-26); Bilirubin,Direct 0.2 mg/dL (0.0-0.2); Bilirubin,Indirect 0.2 mg/dL (0.0-1.0); Bilirubin,Total 0.4 mg/dL (0.3-1.0); Blood Urea Nitrogen 15 mg/dL (8-23); Calcium 9.2 mg/dL (8.6-10.3); Carbon Dioxide 25 mEq/L (23-29); Chloride 99 mEq/L (98-107); Creatine Kinase 40 Units/L (30-223); Ethanol < 10 mg/dL (Less than 10); Globulin 3.7 g/dL (2.4-3.5); Glucose 112 mg/dL (70-105); Magnesium 1.3 mg/dL (1.6-2.6); Osmolality,Calculated 278 (280-300); Potassium 4.2 mEq/L (3.5-5.1); Sodium 133 mEq/L (136-145); Thyroid Stimulating Hormone 1.367 mcIU/mL (0.340-5.600); Total Protein 6.9 g/dL (6.4-8.9); eGFR For African Americans > 60 (> 60); eGFR For Non-African Americans > 60 (> 60)
[2021-04-09 21:14] LABS: Troponin I < 0.03 ng/mL (< 0.04)
[2021-04-09 22:33] LABS: Bilirubin,Urine Negative (Negative); Blood,Urine Negative (Negative); Clarity,Urine Clear (Clear); Color,Urine Light-Yellow (Yellow); Glucose,Urine (UA) Normal (Normal); Ketones,Urine Negative (Negative); Leukocyte Esterase,Urine Negative (Negative); Nitrite,Urine Negative (Negative); Protein,Urine Negative (Neg-Trace); Urobilinogen,Urine Normal (Normal)
[2021-04-09 22:50] LABS: Amphetamine Screen,Urine Positive ng/mL (Cutoff=1000); Barbiturate Screen,Urine Negative ng/mL (Cutoff=200); Benzodiazepines Screen,Urine Positive ng/mL (Cutoff=200); Cannabinoid Screen,Urine Positive ng/mL (Cutoff = 50); Cocaine Screen,Urine Negative ng/mL (Cutoff= 300); Opiate Screen,Urine Negative ng/mL (Cutoff=300); Phencyclidine Screen,Urine Negative ng/mL (Cutoff=25)
[2021-04-09 23:19] LABS: Influenza A PCR Negative (Negative); Influenza B PCR Negative (Negative); Resp. Syncytial Virus PCR Negative (Negative)
[2021-04-09 23:25] LABS: SARS-CoV-2 by PCR (In House) Negative (Negative)
[2021-04-10] MEDS ORDERED: Naloxone 0.4 MG/ML INJ IVP PRN (03:06)
[2021-04-10] MEDS ORDERED: Dextrose Gel 15 GM/37.5 ML TUBE PO PRN ×2 (03:09)
[2021-04-10] MEDS ORDERED: *HR* Dextrose 50 % in Water (Vial) 50 ML VIAL IVP PRN (03:09)
[2021-04-10] MEDS ORDERED: D5% in Water 1,000 ML IVC PRN (03:09)
[2021-04-10] MEDS ORDERED: *HR* LORazepam 2 MG/ML VIAL IVP PRN ×3 (04:58)
[2021-04-10] MEDS ORDERED: Vancomycin 1,250 MG/262.5 ML IV.SOLN IVPB SCH (09:00)
[2021-04-10] MEDS: Insulin LISPRO 300 UNITS/3 ML VIAL SUBQ SCH ×3 (09:14→17:34)
[2021-04-10] MEDS: Piperacillin/Tazobactam 3.375 GM in 0.9 % Sodium Chloride Mini Bag 100 ML IVPB SCH ×2 (09:14→16:40)
[2021-04-10] MEDS: Lactulose Oral Soln 20 GM/30 ML UDC PO SCH ×2 (09:15→21:24)
[2021-04-10] MEDS: Vancomycin 1,250 MG/262.5 ML IV.SOLN IVPB SCH (14:10)
[2021-04-10] MEDS: *HR* Heparin 5,000 UNIT/ML VIAL SQ SCH ×2 (14:11→21:23)
[2021-04-10] MEDS: Thiamine (B-1) 100 MG, Folic Acid 1 MG, MVI, adult with vitamin K 10 ML in 0.9 % Sodi... IVPB SCH (20:45)
[2021-04-10] MEDS: Budesonide/Formoterol 160/4.5 1 PUFF INH IH SCH (21:42)
[2021-04-11] MEDS: Piperacillin/Tazobactam 3.375 GM in 0.9 % Sodium Chloride Mini Bag 100 ML IVPB SCH ×3 (01:19→17:41)
[2021-04-11] MEDS: traZODone 50 MG TABLET PO PRN ×2 (01:23→23:44)
[2021-04-11] MEDS: Vancomycin 1,250 MG/262.5 ML IV.SOLN IVPB SCH ×2 (02:15→14:20)
[2021-04-11 05:22] LABS: Basophils # 0.1 K/mcL (0.0-0.2); Basophils % 0.8 %; Eosinophils # 0.3 K/mcL (0.0-0.6); Hematocrit 34.8 % (37.5-50.1); Immature Granulocytes % 0.4 % (0-4); Lymphocytes # 2.4 K/mcL (0.6-4.6); Lymphocytes % 32.1 %; Mean Corpuscular HGB Conc 32.8 g/dL (31.6-35.5); Mean Corpuscular Hemoglobin 28.1 pg (28.0-33.3); Mean Corpuscular Volume 85.9 fL (83.0-100.0); Mean Platelet Volume 8.8 fL (9.4-12.4); Monocytes # 0.6 K/mcL (0.0-1.3); Neutrophils # 4.1 K/mcL (1.6-8.9); Platelet Count 479 K/mcL (140-400); Red Blood Count 4.05 M/mcL (4.19-5.50); Red Cell Distribution Width 15.9 % (11.5-14.5); Segmented Neutrophils % 54.7 %; White Blood Count 7.5 K/mcL (4.3-11.1)
[2021-04-11 05:23] LABS: Hemoglobin 11.4 g/dL (12.9-16.9)
[2021-04-11] MEDS: *HR* Heparin 5,000 UNIT/ML VIAL SQ SCH (05:23)
[2021-04-11 05:43] LABS: BUN/Creatinine Ratio 13 (6-26); Blood Urea Nitrogen 12 mg/dL (8-23); Calcium 8.4 mg/dL (8.6-10.3); Carbon Dioxide 23 mEq/L (23-29); Chloride 105 mEq/L (98-107); Glucose 147 mg/dL (70-105); Osmolality,Calculated 282 (280-300); Potassium 4.1 mEq/L (3.5-5.1); Sodium 135 mEq/L (136-145); eGFR For African Americans > 60 (> 60); eGFR For Non-African Americans > 60 (> 60)
[2021-04-11] MEDS: Insulin LISPRO 300 UNITS/3 ML VIAL SUBQ SCH ×3 (08:28→17:42)
[2021-04-11] MEDS: amLODIPine 5 MG TABLET PO SCH (08:28)
[2021-04-11] MEDS: lisinopriL 5 MG TABLET PO SCH (08:28)
[2021-04-11] MEDS: Lactulose Oral Soln 20 GM/30 ML UDC PO SCH ×2 (08:35→20:23)
[2021-04-11] MEDS: Budesonide/Formoterol 160/4.5 1 PUFF INH IH SCH ×2 (09:51→19:39)
[2021-04-11] MEDS: Buprenorphine Hcl/Naloxone Hcl [Suboxone 8 Mg-2 Mg] SL SCH (12:13)
[2021-04-11] MEDS: Thiamine (B-1) 100 MG, Folic Acid 1 MG, MVI, adult with vitamin K 10 ML in 0.9 % Sodi... IVPB SCH (22:23)
[2021-04-12] MEDS: Piperacillin/Tazobactam 3.375 GM in 0.9 % Sodium Chloride Mini Bag 100 ML IVPB SCH ×3 (01:20→16:10)
[2021-04-12] MEDS: *HR* Enoxaparin 40 MG/0.4 ML SYRINGE SQ SCH (05:19)
[2021-04-12] MEDS: Budesonide/Formoterol 160/4.5 1 PUFF INH IH SCH ×2 (07:48→21:23)
[2021-04-12 07:49] LABS: BUN/Creatinine Ratio 9 (6-26); Blood Urea Nitrogen 8 mg/dL (8-23); Carbon Dioxide 25 mEq/L (23-29); Chloride 103 mEq/L (98-107); Glucose 120 mg/dL (70-105); Osmolality,Calculated 276 (280-300); Potassium 3.5 mEq/L (3.5-5.1); Sodium 133 mEq/L (136-145); eGFR For African Americans > 60 (> 60); eGFR For Non-African Americans > 60 (> 60)
[2021-04-12] MEDS: Insulin LISPRO 300 UNITS/3 ML VIAL SUBQ SCH ×3 (08:42→16:10)
[2021-04-12] MEDS: lisinopriL 5 MG TABLET PO SCH (09:31)
[2021-04-12] MEDS: Lactulose Oral Soln 20 GM/30 ML UDC PO SCH (09:31)
[2021-04-12] MEDS: Buprenorphine Hcl/Naloxone Hcl [Suboxone 8 Mg-2 Mg] SL SCH (09:31)
[2021-04-12] MEDS: amLODIPine 5 MG TABLET PO SCH (09:31)
[2021-04-12 10:21] LABS: Calcium 8.6 mg/dL (8.6-10.3)
[2021-04-13] MEDS: Lactulose Oral Soln 20 GM/30 ML UDC PO SCH ×3 (01:20→19:56)
[2021-04-13] MEDS: Piperacillin/Tazobactam 3.375 GM in 0.9 % Sodium Chloride Mini Bag 100 ML IVPB SCH ×2 (01:21→12:51)
[2021-04-13] MEDS: Insulin LISPRO 300 UNITS/3 ML VIAL SUBQ SCH ×3 (07:32→16:50)
[2021-04-13] MEDS: Budesonide/Formoterol 160/4.5 1 PUFF INH IH SCH ×2 (08:15→20:20)
[2021-04-13 08:19] LABS: BUN/Creatinine Ratio 10 (6-26); Blood Urea Nitrogen 8 mg/dL (8-23); Calcium 9.6 mg/dL (8.6-10.3); Carbon Dioxide 23 mEq/L (23-29); Chloride 101 mEq/L (98-107); Glucose 87 mg/dL (70-105); Osmolality,Calculated 274 (280-300); Potassium 3.9 mEq/L (3.5-5.1); Sodium 133 mEq/L (136-145); eGFR For African Americans > 60 (> 60); eGFR For Non-African Americans > 60 (> 60)
[2021-04-13] MEDS: amLODIPine 5 MG TABLET PO SCH (09:01)
[2021-04-13] MEDS: lisinopriL 5 MG TABLET PO SCH (09:01)
[2021-04-13] MEDS ORDERED: *HR* LORazepam 2 MG/ML VIAL IVP ONE (11:40)
[2021-04-13] MEDS ORDERED: *HR* LORazepam 1 MG TABLET PO ONE (11:59)
[2021-04-13] MEDS: Buprenorphine Hcl/Naloxone Hcl [Suboxone 8 Mg-2 Mg] SL SCH (12:46)
[2021-04-13] MEDS: *HR* Enoxaparin 40 MG/0.4 ML SYRINGE SQ SCH (12:51)
[2021-04-13 12:58] LABS: Hematocrit 41.8 % (37.5-50.1); Immature Granulocytes % 0.5 % (0-4); Lymphocytes % 41.2 %; Mean Corpuscular Hemoglobin 28.6 pg (28.0-33.3); Mean Corpuscular Volume 86.5 fL (83.0-100.0); Mean Platelet Volume 9.1 fL (9.4-12.4); Platelet Count 415 K/mcL (140-400); Red Blood Count 4.83 M/mcL (4.19-5.50); Red Cell Distribution Width 15.7 % (11.5-14.5); Segmented Neutrophils % 44.6 %; White Blood Count 7.4 K/mcL (4.3-11.1)
[2021-04-13 12:59] LABS: Basophils # 0.1 K/mcL (0.0-0.2); Basophils % 0.7 %; Eosinophils # 0.2 K/mcL (0.0-0.6); Lymphocytes # 3.1 K/mcL (0.6-4.6); Monocytes # 0.7 K/mcL (0.0-1.3); Neutrophils # 3.3 K/mcL (1.6-8.9)
[2021-04-13 13:36] LABS: Hemoglobin 13.8 g/dL (12.9-16.9)
[2021-04-13] MEDS: *HR* Buprenorphine HCl 8 MG TAB.SUBL SL SCH (14:56)
[2021-04-13] MEDS: Nicotine 21 MG PATCH.TD24 TD SCH (14:56)
[2021-04-13] MEDS: Doxycycline 100 MG CAPSULE PO SCH (19:56)
[2021-04-13] MEDS: traZODone 50 MG TABLET PO PRN (21:14)
[2021-04-13] MEDS ORDERED: *HR* LORazepam 2 MG/ML VIAL IM ONE (22:17)
[2021-04-14] MEDS ORDERED: *HR* LORazepam 2 MG/ML VIAL IVP ONE (03:21)
[2021-04-14] MEDS: *HR* Enoxaparin 40 MG/0.4 ML SYRINGE SQ SCH (05:37)
[2021-04-14] MEDS: Budesonide/Formoterol 160/4.5 1 PUFF INH IH SCH ×2 (10:08→22:01)
[2021-04-14] MEDS: Insulin LISPRO 300 UNITS/3 ML VIAL SUBQ SCH ×3 (11:15→18:17)
[2021-04-14] MEDS: *HR* Buprenorphine HCl 8 MG TAB.SUBL SL SCH (11:46)
[2021-04-14] MEDS: amLODIPine 5 MG TABLET PO SCH (11:46)
[2021-04-14] MEDS: lisinopriL 5 MG TABLET PO SCH (11:46)
[2021-04-14] MEDS: Lactulose Oral Soln 20 GM/30 ML UDC PO SCH ×2 (11:46→20:34)
[2021-04-14] MEDS ORDERED: Ampicillin/Sulbactam 1,500 MG in 0.9 % Sodium Chloride Mini Bag 100 ML IVPB SCH (12:00)
[2021-04-14] MEDS ORDERED: Haloperidol Lactate 5 MG/ML VIAL IM ONE (12:50)
[2021-04-14] MEDS: Nicotine 21 MG PATCH.TD24 TD SCH (13:07)
[2021-04-14] MEDS: Ampicillin/Sulbactam 3,000 MG in 0.9 % Sodium Chloride Mini Bag 100 ML IVPB SCH ×2 (13:08→18:17)
[2021-04-14 15:13] LABS: Hematocrit 36.7 % (37.5-50.1); Hemoglobin 12.2 g/dL (12.9-16.9); Mean Corpuscular HGB Conc 33.2 g/dL (31.6-35.5); Mean Corpuscular Hemoglobin 28.4 pg (28.0-33.3); Mean Corpuscular Volume 85.3 fL (83.0-100.0); Mean Platelet Volume 8.6 fL (9.4-12.4); Platelet Count 393 K/mcL (140-400); Red Cell Distribution Width 15.8 % (11.5-14.5); White Blood Count 7.8 K/mcL (4.3-11.1)
[2021-04-14 15:21] LABS: BUN/Creatinine Ratio 10 (6-26); Blood Urea Nitrogen 8 mg/dL (8-23); Calcium 9.1 mg/dL (8.6-10.3); Carbon Dioxide 25 mEq/L (23-29); Chloride 104 mEq/L (98-107); Glucose 109 mg/dL (70-105); Osmolality,Calculated 281 (280-300); Potassium 3.7 mEq/L (3.5-5.1); Sodium 136 mEq/L (136-145); eGFR For African Americans > 60 (> 60); eGFR For Non-African Americans > 60 (> 60)
[2021-04-15] MEDS: Ampicillin/Sulbactam 3,000 MG in 0.9 % Sodium Chloride Mini Bag 100 ML IVPB SCH ×4 (01:03→18:04)
[2021-04-15 05:35] LABS: Hematocrit 39.6 % (37.5-50.1); Mean Corpuscular HGB Conc 32.8 g/dL (31.6-35.5); Mean Corpuscular Hemoglobin 27.8 pg (28.0-33.3); Mean Corpuscular Volume 84.6 fL (83.0-100.0); Mean Platelet Volume 8.6 fL (9.4-12.4); Platelet Count 423 K/mcL (140-400); Red Blood Count 4.68 M/mcL (4.19-5.50); White Blood Count 6.5 K/mcL (4.3-11.1)
[2021-04-15 05:58] LABS: BUN/Creatinine Ratio 13 (6-26); Blood Urea Nitrogen 9 mg/dL (8-23); Calcium 9.2 mg/dL (8.6-10.3); Carbon Dioxide 22 mEq/L (23-29); Chloride 105 mEq/L (98-107); Glucose 103 mg/dL (70-105); Osmolality,Calculated 283 (280-300); Potassium 3.5 mEq/L (3.5-5.1); Sodium 137 mEq/L (136-145); eGFR For African Americans > 60 (> 60); eGFR For Non-African Americans > 60 (> 60)
[2021-04-15] MEDS: *HR* Enoxaparin 40 MG/0.4 ML SYRINGE SQ SCH (06:03)
[2021-04-15] MEDS ORDERED: Haloperidol Lactate 5 MG/ML VIAL IM PRN (09:00)
[2021-04-15] MEDS: Insulin LISPRO 300 UNITS/3 ML VIAL SUBQ SCH ×3 (10:03→16:50)
[2021-04-15] MEDS: amLODIPine 5 MG TABLET PO SCH (10:04)
[2021-04-15] MEDS: Lactulose Oral Soln 20 GM/30 ML UDC PO SCH ×2 (10:04→19:55)
[2021-04-15] MEDS: lisinopriL 5 MG TABLET PO SCH (10:04)
[2021-04-15] MEDS: *HR* Buprenorphine HCl 8 MG TAB.SUBL SL SCH (10:04)
[2021-04-15] MEDS: Nicotine 21 MG PATCH.TD24 TD SCH (10:05)
[2021-04-15] MEDS: Budesonide/Formoterol 160/4.5 1 PUFF INH IH SCH ×2 (10:38→19:50)
[2021-04-15] MEDS: Doxycycline 100 MG CAPSULE PO SCH (19:08)
[2021-04-15] MEDS: traZODone 50 MG TABLET PO PRN (20:13)
[2021-04-16] MEDS: Ampicillin/Sulbactam 3,000 MG in 0.9 % Sodium Chloride Mini Bag 100 ML IVPB SCH ×5 (00:16→23:27)
[2021-04-16] MEDS: *HR* Enoxaparin 40 MG/0.4 ML SYRINGE SQ SCH (06:18)
[2021-04-16 06:43] LABS: Hematocrit 38.7 % (37.5-50.1); Hemoglobin 12.8 g/dL (12.9-16.9); Mean Corpuscular HGB Conc 33.1 g/dL (31.6-35.5); Mean Corpuscular Hemoglobin 28.2 pg (28.0-33.3); Mean Corpuscular Volume 85.2 fL (83.0-100.0); Mean Platelet Volume 8.5 fL (9.4-12.4); Platelet Count 385 K/mcL (140-400); Red Blood Count 4.54 M/mcL (4.19-5.50); Red Cell Distribution Width 16.1 % (11.5-14.5); White Blood Count 8.1 K/mcL (4.3-11.1)
[2021-04-16 07:08] LABS: BUN/Creatinine Ratio 16 (6-26); Blood Urea Nitrogen 13 mg/dL (8-23); Calcium 9.3 mg/dL (8.6-10.3); Carbon Dioxide 24 mEq/L (23-29); Chloride 105 mEq/L (98-107); Glucose 116 mg/dL (70-105); Osmolality,Calculated 279 (280-300); Potassium 3.6 mEq/L (3.5-5.1); Sodium 134 mEq/L (136-145); eGFR For African Americans > 60 (> 60); eGFR For Non-African Americans > 60 (> 60)
[2021-04-16] MEDS: Budesonide/Formoterol 160/4.5 1 PUFF INH IH SCH ×2 (08:37→22:20)
[2021-04-16] MEDS: Insulin LISPRO 300 UNITS/3 ML VIAL SUBQ SCH ×3 (09:49→17:21)
[2021-04-16] MEDS: lisinopriL 5 MG TABLET PO SCH (09:50)
[2021-04-16] MEDS: *HR* Buprenorphine HCl 8 MG TAB.SUBL SL SCH (09:50)
[2021-04-16] MEDS: Lactulose Oral Soln 20 GM/30 ML UDC PO SCH ×2 (09:51→20:16)
[2021-04-16] MEDS: Nicotine 21 MG PATCH.TD24 TD SCH (09:51)
[2021-04-16] MEDS: amLODIPine 5 MG TABLET PO SCH (09:55)
[2021-04-16] MEDS: traZODone 50 MG TABLET PO PRN (20:16)
[2021-04-17] MEDS: *HR* Enoxaparin 40 MG/0.4 ML SYRINGE SQ SCH (05:14)
[2021-04-17] MEDS: Ampicillin/Sulbactam 3,000 MG in 0.9 % Sodium Chloride Mini Bag 100 ML IVPB SCH ×3 (05:15→18:08)
[2021-04-17] MEDS: Budesonide/Formoterol 160/4.5 1 PUFF INH IH SCH (07:45)
[2021-04-17 08:05] LABS: Hematocrit 40.8 % (37.5-50.1); Hemoglobin 13.2 g/dL (12.9-16.9); Mean Corpuscular HGB Conc 32.4 g/dL (31.6-35.5); Mean Corpuscular Hemoglobin 27.7 pg (28.0-33.3); Mean Corpuscular Volume 85.5 fL (83.0-100.0); Mean Platelet Volume 8.9 fL (9.4-12.4); Platelet Count 375 K/mcL (140-400); Red Blood Count 4.77 M/mcL (4.19-5.50); Red Cell Distribution Width 16.2 % (11.5-14.5); White Blood Count 11.2 K/mcL (4.3-11.1)
[2021-04-17] MEDS: Insulin LISPRO 300 UNITS/3 ML VIAL SUBQ SCH ×3 (08:10→18:09)
[2021-04-17 08:17] LABS: BUN/Creatinine Ratio 19 (6-26); Blood Urea Nitrogen 23 mg/dL (8-23); Calcium 9.1 mg/dL (8.6-10.3); Chloride 99 mEq/L (98-107); Glucose 130 mg/dL (70-105); Osmolality,Calculated 279 (280-300); Potassium 3.9 mEq/L (3.5-5.1); Sodium 132 mEq/L (136-145); eGFR For African Americans > 60 (> 60); eGFR For Non-African Americans > 60 (> 60)
[2021-04-17] MEDS: amLODIPine 5 MG TABLET PO SCH (08:44)
[2021-04-17] MEDS: lisinopriL 5 MG TABLET PO SCH (08:44)
[2021-04-17] MEDS: *HR* Buprenorphine HCl 8 MG TAB.SUBL SL SCH (08:45)
[2021-04-17] MEDS: Nicotine 21 MG PATCH.TD24 TD SCH (08:47)
[2021-04-17] MEDS: Lactulose Oral Soln 20 GM/30 ML UDC PO SCH (08:48)
[2021-04-17 09:57] LABS: Carbon Dioxide 24 mEq/L (23-29)
[2021-04-17 17:37] VITALS: BP 95/61; PULSE 71; TEMP 98.5; O2SAT 94
== END 2021-04-17 18:45 | disposition home health service (06) | DRG 638 ==
LOC: CDU 17:58 → EMEROOARM 17:58 → SUATTDRO 04-10 01:53 → CDU 04-10 02:20 → 3ANU 04-11 11:50 → SUATTDRO 04-11 13:46
PROVIDERS: ADMIT Student in an Organized Health Care Education/Training Program; ATTEND Internal Medicine

== ENCOUNTER 2021-10-13 21:39 | Inpatient (IN) ==
[2021-10-13] MEDS ORDERED: Azithromycin 500 MG in 0.9 % Sodium Chloride 250 ML IVPB ONE (21:47)
[2021-10-13] MEDS ORDERED: cefTRIAXone 1,000 MG in 0.9 % Sodium Chloride 10 ML IVP ONE (21:47)
[2021-10-13] MEDS ORDERED: Ipratropium/Albuterol Neb 3 ML IH ONE (21:49)
[2021-10-13] MEDS ORDERED: Isovue-370 500 ML BOTTLE IVP ONE (21:50)
[2021-10-13] MEDS ORDERED: 0.9 % Sodium Chloride 500 ML IV ONE (22:01)
[2021-10-13] MEDS: Ringers Solution, Lactated 1,000 ML IVC SCH ×3 (22:04→22:54)
[2021-10-13 22:17] LABS: Hemoglobin 11.5 g/dL (12.9-16.9); Mean Platelet Volume 8.8 fL (9.4-12.4)
[2021-10-13 22:19] LABS: Hematocrit 36.3 % (37.5-50.1); Mean Corpuscular HGB Conc 31.7 g/dL (31.6-35.5); Mean Corpuscular Hemoglobin 27.2 pg (28.0-33.3); Mean Corpuscular Volume 85.8 fL (83.0-100.0); Platelet Count 510 K/mcL (140-400); Red Blood Count 4.23 M/mcL (4.19-5.50); Red Cell Distribution Width 18.1 % (11.5-14.5); White Blood Count 27.2 K/mcL (4.3-11.1)
[2021-10-13 22:19] LABS: VBG HCO3 20 mEq/L (21-27); VBG PCO2 39 mmHg (41-51); VBG PH 7.31 pH Units (7.32-7.42); VBG PO2 114 mmHg (25-50)
[2021-10-13 22:30] LABS: INR 1.1; Prothrombin Time 11.8 Seconds (9.4-12.1)
[2021-10-13 22:32] LABS: Activated Partial Thrombo Time 35.5 Seconds (26.0-36.0)
[2021-10-13 22:45] LABS: Alanine Aminotransferase 12 Units/L (7-52); Alkaline Phosphatase 57 Units/L (34-104); Aspartate Amino Transferase 21 Units/L (13-39); BUN/Creatinine Ratio 17 (6-26); Bilirubin,Indirect 0.3 mg/dL (0.0-1.0); Bilirubin,Total 0.3 mg/dL (0.3-1.0); Blood Urea Nitrogen 32 mg/dL (8-23); Calcium 8.9 mg/dL (8.6-10.3); Carbon Dioxide 18 mEq/L (23-29); Chloride 103 mEq/L (98-107); Glucose 100 mg/dL (70-105); Lipase 5 Units/L (11-82); Magnesium 1.5 mg/dL (1.6-2.6); Osmolality,Calculated 277 (280-300); Phosphorous 3.6 mg/dL (2.7-4.5); Potassium 6.9 mEq/L (3.5-5.1); Sodium 130 mEq/L (136-145); Troponin I < 0.03 ng/mL (< 0.04); eGFR For African Americans 44 (> 60); eGFR For Non-African Americans 36 (> 60)
[2021-10-13] MEDS ORDERED: 0.9 % Sodium Chloride 1,000 ML IV ONE (22:48)
[2021-10-13] MEDS ORDERED: Albuterol 2.5 MG/3 ML NEBULIZER IH ONE (22:48)
[2021-10-13] MEDS ORDERED: Calcium Gluconate 1gm/50mL 1 GM/50 ML BAG IVPB PRN (22:48)
[2021-10-13] MEDS ORDERED: *HR* Dextrose 50 % in Water (Syg) 50 ML SYRINGE IVP ONE (22:49)
[2021-10-13] MEDS ORDERED: Insulin Human Regular 5 UNIT in 0.9 % Sodium Chloride 10 ML IV ONE (22:49)
[2021-10-13 22:50] LABS: Lymphocytes # 5.7 K/mcL (0.6-4.6); Monocytes # 1.1 K/mcL (0.0-1.3); Neutrophils # 19.9 K/mcL (1.6-8.9)
[2021-10-13 22:51] LABS: Reactive Lymphocytes Present (Not Present)
[2021-10-13] MEDS ORDERED: MetroNIDAZOLE 500 MG/100 ML 500 MG/100 ML BAG IVPB ONE (22:51)
[2021-10-13 22:52] LABS: Albumin/Globulin Ratio 0.7 (1.1-2.2); Globulin 4.1 g/dL (2.4-3.5); Total Protein 7.1 g/dL (6.4-8.9)
[2021-10-13 22:54] LABS: Bilirubin,Urine Negative (Negative); Blood,Urine Negative (Negative); Clarity,Urine Clear (Clear); Color,Urine Yellow (Yellow); Glucose,Urine (UA) Normal (Normal); Ketones,Urine Negative (Negative); Leukocyte Esterase,Urine Negative (Negative); Nitrite,Urine Negative (Negative); Protein,Urine Trace mg/dL (Neg-Trace); Specific Gravity,Urine 1.019 (1.010-1.025); Urobilinogen,Urine Normal (Normal)
[2021-10-13 23:29] LABS: Influenza A PCR Negative (Negative); Influenza B PCR Negative (Negative); Resp. Syncytial Virus PCR Negative (Negative)
[2021-10-13 23:36] LABS: SARS-CoV-2 by PCR (In House) Negative (Negative)
[2021-10-14] MEDS ORDERED: 0.9 % Sodium Chloride 1,000 ML IV ONE (00:12)
[2021-10-14] MEDS: Norepinephrine 4 MG/254 ML IV.SOLN IVC SCH ×2 (01:41→10:10)
[2021-10-14] MEDS ORDERED: Ondansetron 4 MG/2 ML VIAL IVP PRN (03:31)
[2021-10-14] MEDS ORDERED: Acetaminophen 325 MG TABLET PO PRN ×2 (03:31→23:14)
[2021-10-14] MEDS ORDERED: Naloxone 0.4 MG/ML INJ IVP PRN ×2 (03:31→23:14)
[2021-10-14] MEDS ORDERED: Dextrose Gel 15 GM/37.5 ML TUBE PO PRN ×4 (03:33→23:14)
[2021-10-14] MEDS ORDERED: D5% in Water 1,000 ML IVC PRN ×2 (03:33→23:14)
[2021-10-14] MEDS ORDERED: *HR* Dextrose 50 % in Water (Syg) 50 ML SYRINGE IVP PRN ×2 (03:33→23:14)
[2021-10-14 03:57] LABS: Acetaminophen < 10 mcg/mL (10-20); BUN/Creatinine Ratio 21 (6-26); Blood Urea Nitrogen 31 mg/dL (8-23); Calcium 8.3 mg/dL (8.6-10.3); Carbon Dioxide 19 mEq/L (23-29); Chloride 107 mEq/L (98-107); Ethanol < 10 mg/dL (Less than 10); Glucose 102 mg/dL (70-105); Osmolality,Calculated 283 (280-300); Potassium 5.4 mEq/L (3.5-5.1); Salicylate < 2.5 mg/dL (15.0-30.0); Sodium 133 mEq/L (136-145); eGFR For African Americans 57 (> 60); eGFR For Non-African Americans 47 (> 60)
[2021-10-14] MEDS ORDERED: Calcium Gluconate 1gm/50mL 1 GM/50 ML BAG IVPB ONE (04:15)
[2021-10-14] MEDS ORDERED: Insulin Human Regular 5 UNIT in 0.9 % Sodium Chloride 10 ML IV ONE (04:17)
[2021-10-14] MEDS: Ipratropium/Albuterol Neb 3 ML IH SCH ×4 (04:18→19:55)
[2021-10-14] MEDS ORDERED: *HR* Dextrose 50 % in Water (Syg) 50 ML SYRINGE IVP ONE (04:19)
[2021-10-14] MEDS ORDERED: *HR* LORazepam 2 MG/ML VIAL IVP PRN ×6 (04:20→23:14)
[2021-10-14] MEDS ORDERED: Nicotine 21 MG PATCH.TD24 TD SCH (04:30)
[2021-10-14 05:29] LABS: ABG Base Excess -4 mEq/L (-2 to 3); ABG HCO3 22 mEq/L (21-27); ABG Oxygen Saturation 98 % (95-98); ABG PCO2 40 mmHg (35-45); ABG PH 7.34 pH Units (7.32-7.45); ABG PO2 107 mmHg (85-104); ABG TCO2 23 mEq/L (20-26); Blood Gas Modality 15LPM
[2021-10-14 06:21] LABS: Amphetamine Screen,Urine Positive ng/mL (Cutoff=1000); Barbiturate Screen,Urine Negative ng/mL (Cutoff=200)
[2021-10-14 06:23] LABS: Benzodiazepines Screen,Urine Negative ng/mL (Cutoff=300); Cannabinoid Screen,Urine Positive ng/mL (Cutoff = 50); Cocaine Screen,Urine Negative ng/mL (Cutoff= 300); Opiate Screen,Urine Negative ng/mL (Cutoff=300); Phencyclidine Screen,Urine Negative ng/mL (Cutoff=25)
[2021-10-14 06:28] LABS: INR 1.1; Prothrombin Time 12.6 Seconds (9.4-12.1)
[2021-10-14 06:31] LABS: Activated Partial Thrombo Time 31.3 Seconds (26.0-36.0)
[2021-10-14 06:44] LABS: Alanine Aminotransferase 9 Units/L (7-52); Albumin 2.5 g/dL (3.5-5.7); Albumin/Globulin Ratio 0.7 (1.1-2.2); Alkaline Phosphatase 56 Units/L (34-104); Aspartate Amino Transferase 18 Units/L (13-39); BUN/Creatinine Ratio 23 (6-26); Bilirubin,Total 0.2 mg/dL (0.3-1.0); Blood Urea Nitrogen 32 mg/dL (8-23); Calcium 8.3 mg/dL (8.6-10.3); Carbon Dioxide 18 mEq/L (23-29); Chloride 107 mEq/L (98-107); Globulin 3.4 g/dL (2.4-3.5); Glucose 117 mg/dL (70-105); Magnesium 1.4 mg/dL (1.6-2.6); Osmolality,Calculated 282 (280-300); Phosphorous 3.9 mg/dL (2.7-4.5); Potassium 5.4 mEq/L (3.5-5.1); Sodium 132 mEq/L (136-145); Total Protein 5.9 g/dL (6.4-8.9); eGFR For African Americans > 60 (> 60); eGFR For Non-African Americans 50 (> 60)
[2021-10-14] MEDS: Budesonide/Formoterol 160/4.5 1 PUFF INH IH SCH ×2 (07:43→19:55)
[2021-10-14] MEDS: Piperacillin/Tazobactam 3.375 GM in 0.9 % Sodium Chloride Mini Bag 100 ML IVPB SCH ×2 (07:44→15:37)
[2021-10-14] MEDS: MethylPREDNISolone 40 MG/ML VIAL IVP SCH ×2 (07:45→15:37)
[2021-10-14] MEDS: Lactobacillus 1 EACH CAP.SPRINK PO SCH ×2 (07:45→21:30)
[2021-10-14] MEDS: Chlorhexidine Rinse 15 ML MOUTHWASH MM SCH ×2 (07:45→21:45)
[2021-10-14 08:21] LABS: Creatine Kinase 467 Units/L (30-223)
[2021-10-14] MEDS: SODIUM ZIRCONIUM CYCLOSILICATE 5 GM POWD.PACK PO SCH ×2 (08:31→19:30)
[2021-10-14] MEDS ORDERED: Thiamine (B-1) 200 MG in 0.9 % Sodium Chloride 50 ML IVPB SCH (09:00)
[2021-10-14] MEDS ORDERED: Vitamin B Complex/Vit C/Vit E 1 EACH TABLET PO SCH (09:00)
[2021-10-14] MEDS ORDERED: Folic Acid 1 MG in 0.9 % Sodium Chloride 50 ML IVPB SCH (09:00)
[2021-10-14 11:28] LABS: Hematocrit 30.5 % (37.5-50.1); Mean Corpuscular HGB Conc 30.5 g/dL (31.6-35.5); Mean Corpuscular Hemoglobin 26.6 pg (28.0-33.3); Mean Corpuscular Volume 87.1 fL (83.0-100.0); Mean Platelet Volume 9.1 fL (9.4-12.4); Platelet Count 412 K/mcL (140-400); Red Cell Distribution Width 18.3 % (11.5-14.5); White Blood Count 20.4 K/mcL (4.3-11.1)
[2021-10-14 11:30] LABS: Hemoglobin 9.3 g/dL (12.9-16.9)
[2021-10-14] MEDS: Insulin LISPRO 300 UNITS/3 ML VIAL SUBQ SCH ×2 (12:00→17:04)
[2021-10-14 12:10] LABS: Anisocytosis 1+ (Not Present); Lymphocytes # 0.8 K/mcL (0.6-4.6); Monocytes # 0.2 K/mcL (0.0-1.3); Platelet Estimate Normal (Normal)
[2021-10-14 12:59] LABS: BUN/Creatinine Ratio 24 (6-26); Blood Urea Nitrogen 30 mg/dL (8-23); Calcium 8.6 mg/dL (8.6-10.3); Carbon Dioxide 18 mEq/L (23-29); Chloride 106 mEq/L (98-107); Glucose 137 mg/dL (70-105); Osmolality,Calculated 284 (280-300); Potassium 4.8 mEq/L (3.5-5.1); Sodium 133 mEq/L (136-145); Thyroid Stimulating Hormone 3.517 mcIU/mL (0.340-5.600); eGFR For African Americans > 60 (> 60); eGFR For Non-African Americans 59 (> 60)
[2021-10-14 13:03] LABS: Folate 12.2 ng/mL (3.0-16.0)
[2021-10-14] MEDS: *HR* Heparin 5,000 UNIT/ML VIAL SQ SCH ×2 (14:53→21:30)
[2021-10-14] MEDS ORDERED: traZODone 50 MG TABLET PO PRN (21:42)
[2021-10-14] MEDS ORDERED: Calcium Gluconate 1gm/50mL 1 GM/50 ML BAG IVPB PRN (23:14)
[2021-10-15] MEDS: MethylPREDNISolone 40 MG/ML VIAL IVP SCH ×2 (00:32→07:32)
[2021-10-15] MEDS: Piperacillin/Tazobactam 3.375 GM in 0.9 % Sodium Chloride Mini Bag 100 ML IVPB SCH ×3 (00:33→21:50)
[2021-10-15 02:20] LABS: Basophils % 0.1 %; Hematocrit 30.7 % (37.5-50.1); Hemoglobin 9.8 g/dL (12.9-16.9); Immature Granulocytes % 6.1 % (0-4); Lymphocytes # 1.6 K/mcL (0.6-4.6); Lymphocytes % 8.2 %; Mean Corpuscular HGB Conc 31.9 g/dL (31.6-35.5); Mean Corpuscular Hemoglobin 27.1 pg (28.0-33.3); Mean Corpuscular Volume 84.8 fL (83.0-100.0); Monocytes # 0.7 K/mcL (0.0-1.3); Monocytes % 3.5 %; Neutrophils # 15.9 K/mcL (1.6-8.9); Platelet Count 422 K/mcL (140-400); Red Blood Count 3.62 M/mcL (4.19-5.50); Red Cell Distribution Width 17.4 % (11.5-14.5); Segmented Neutrophils % 82.1 %; White Blood Count 19.4 K/mcL (4.3-11.1)
[2021-10-15 02:43] LABS: % Iron Saturation 6 % (20-55); BUN/Creatinine Ratio 27 (6-26); Blood Urea Nitrogen 26 mg/dL (8-23); Carbon Dioxide 23 mEq/L (23-29); Chloride 98 mEq/L (98-107); Glucose 222 mg/dL (70-105); Iron 13 mcg/dL (65-175); Magnesium 1.8 mg/dL (1.6-2.6); Osmolality,Calculated 282 (280-300); Phosphorous 2.9 mg/dL (2.7-4.5); Sodium 130 mEq/L (136-145); Transferrin 161 mg/dL (203-362); eGFR For African Americans > 60 (> 60); eGFR For Non-African Americans > 60 (> 60)
[2021-10-15 02:50] LABS: Anisocytosis 1+ (Not Present); Platelet Estimate Increased (Normal)
[2021-10-15 02:57] LABS: Ferritin 147 ng/mL (20-250)
[2021-10-15] MEDS: Ipratropium/Albuterol Neb 3 ML IH SCH ×4 (04:18→20:14)
[2021-10-15] MEDS: *HR* Heparin 5,000 UNIT/ML VIAL SQ SCH ×3 (05:49→22:18)
[2021-10-15] MEDS: Nicotine 21 MG PATCH.TD24 TD SCH (06:20)
[2021-10-15] MEDS: Chlorhexidine Rinse 15 ML MOUTHWASH MM SCH ×2 (07:41→22:20)
[2021-10-15] MEDS: Lactobacillus 1 EACH CAP.SPRINK PO SCH ×2 (07:43→22:20)
[2021-10-15] MEDS: Vitamin B Complex/Vit C/Vit E 1 EACH TABLET PO SCH (07:44)
[2021-10-15] MEDS: Insulin LISPRO 300 UNITS/3 ML VIAL SUBQ SCH ×3 (09:15→17:24)
[2021-10-15] MEDS: Budesonide/Formoterol 160/4.5 1 PUFF INH IH SCH ×2 (11:13→20:14)
[2021-10-15] MEDS ORDERED: Iron Sucrose Complex 400 MG in 0.9 % Sodium Chloride 250 ML IVPB ONE (12:56)
[2021-10-15] MEDS: Thiamine (B-1) 200 MG in 0.9 % Sodium Chloride 50 ML IVPB SCH (13:17)
[2021-10-15] MEDS: Folic Acid 1 MG in 0.9 % Sodium Chloride 50 ML IVPB SCH (13:18)
[2021-10-15] MEDS: *HR* Buprenorphine HCl 8 MG TAB.SUBL SL SCH (16:01)
[2021-10-15] MEDS: traZODone 50 MG TABLET PO PRN (22:18)
[2021-10-16] MEDS: Piperacillin/Tazobactam 3.375 GM in 0.9 % Sodium Chloride Mini Bag 100 ML IVPB SCH ×2 (00:29→12:55)
[2021-10-16] MEDS: Ipratropium/Albuterol Neb 3 ML IH SCH ×5 (04:13→20:02)
[2021-10-16] MEDS: *HR* Heparin 5,000 UNIT/ML VIAL SQ SCH ×3 (06:21→22:01)
[2021-10-16] MEDS: Nicotine 21 MG PATCH.TD24 TD SCH (06:21)
[2021-10-16] MEDS: Budesonide/Formoterol 160/4.5 1 PUFF INH IH SCH ×2 (07:17→20:02)
[2021-10-16] MEDS: *HR* Buprenorphine HCl 8 MG TAB.SUBL SL SCH (07:50)
[2021-10-16] MEDS: Vitamin B Complex/Vit C/Vit E 1 EACH TABLET PO SCH (07:50)
[2021-10-16] MEDS: Chlorhexidine Rinse 15 ML MOUTHWASH MM SCH ×2 (07:51→22:00)
[2021-10-16] MEDS: Lactobacillus 1 EACH CAP.SPRINK PO SCH ×2 (07:51→22:00)
[2021-10-16] MEDS: Insulin LISPRO 300 UNITS/3 ML VIAL SUBQ SCH ×3 (07:57→17:24)
[2021-10-16] MEDS: predniSONE 20 MG TABLET PO SCH (07:58)
[2021-10-16] MEDS: Thiamine (B-1) 200 MG in 0.9 % Sodium Chloride 50 ML IVPB SCH (10:16)
[2021-10-16] MEDS: Folic Acid 1 MG in 0.9 % Sodium Chloride 50 ML IVPB SCH (11:30)
[2021-10-16 13:00] LABS: Hematocrit 34.3 % (37.5-50.1); Hemoglobin 10.7 g/dL (12.9-16.9); Mean Corpuscular HGB Conc 31.2 g/dL (31.6-35.5); Mean Corpuscular Volume 83.3 fL (83.0-100.0); Mean Platelet Volume 8.8 fL (9.4-12.4); Platelet Count 486 K/mcL (140-400); Red Blood Count 4.12 M/mcL (4.19-5.50); Red Cell Distribution Width 17.3 % (11.5-14.5); White Blood Count 12.6 K/mcL (4.3-11.1)
[2021-10-16 13:18] LABS: BUN/Creatinine Ratio 26 (6-26); Blood Urea Nitrogen 17 mg/dL (8-23); Calcium 9.6 mg/dL (8.6-10.3); Carbon Dioxide 28 mEq/L (23-29); Chloride 98 mEq/L (98-107); Glucose 246 mg/dL (70-105); Magnesium 1.4 mg/dL (1.6-2.6); Osmolality,Calculated 286 (280-300); Phosphorous 2.1 mg/dL (2.7-4.5); Potassium 3.7 mEq/L (3.5-5.1); Sodium 133 mEq/L (136-145); Vancomycin,Trough 7 mcg/mL (5-10); eGFR For African Americans > 60 (> 60); eGFR For Non-African Americans > 60 (> 60)
[2021-10-16 13:42] LABS: Estimated Average Glucose 134 mg/dl; Hemoglobin A1C 6.3 %
[2021-10-16] MEDS: Azithromycin 500 MG in 0.9 % Sodium Chloride 250 ML IVPB SCH (14:48)
[2021-10-16] MEDS: traZODone 50 MG TABLET PO PRN (22:00)
[2021-10-17] MEDS: Ipratropium/Albuterol Neb 3 ML IH SCH ×4 (04:46→19:38)
[2021-10-17] MEDS: Nicotine 21 MG PATCH.TD24 TD SCH (06:15)
[2021-10-17] MEDS: *HR* Heparin 5,000 UNIT/ML VIAL SQ SCH ×3 (06:15→20:04)
[2021-10-17 06:49] LABS: Hematocrit 31.4 % (37.5-50.1); Hemoglobin 10.2 g/dL (12.9-16.9); Mean Corpuscular HGB Conc 32.5 g/dL (31.6-35.5); Mean Corpuscular Hemoglobin 26.6 pg (28.0-33.3); Mean Corpuscular Volume 81.8 fL (83.0-100.0); Mean Platelet Volume 8.7 fL (9.4-12.4); Platelet Count 470 K/mcL (140-400); Red Blood Count 3.84 M/mcL (4.19-5.50); Red Cell Distribution Width 17.1 % (11.5-14.5); White Blood Count 13.7 K/mcL (4.3-11.1)
[2021-10-17 07:07] LABS: BUN/Creatinine Ratio 25 (6-26); Blood Urea Nitrogen 15 mg/dL (8-23); Calcium 9.5 mg/dL (8.6-10.3); Carbon Dioxide 30 mEq/L (23-29); Chloride 100 mEq/L (98-107); Glucose 166 mg/dL (70-105); Magnesium 1.4 mg/dL (1.6-2.6); Osmolality,Calculated 285 (280-300); Phosphorous 2.2 mg/dL (2.7-4.5); Potassium 3.2 mEq/L (3.5-5.1); Sodium 135 mEq/L (136-145); eGFR For African Americans > 60 (> 60); eGFR For Non-African Americans > 60 (> 60)
[2021-10-17] MEDS: Budesonide/Formoterol 160/4.5 1 PUFF INH IH SCH ×2 (08:15→19:38)
[2021-10-17] MEDS: Thiamine (B-1) 100 MG TABLET PO SCH (08:54)
[2021-10-17] MEDS: Lactobacillus 1 EACH CAP.SPRINK PO SCH ×2 (08:54→20:00)
[2021-10-17] MEDS: predniSONE 20 MG TABLET PO SCH (08:54)
[2021-10-17] MEDS: cefTRIAXone 1,000 MG in 0.9 % Sodium Chloride Mini Bag 100 ML IVPB SCH (08:55)
[2021-10-17] MEDS: *HR* Buprenorphine HCl 8 MG TAB.SUBL SL SCH (08:55)
[2021-10-17] MEDS: Folic Acid 1 MG TABLET PO SCH (08:55)
[2021-10-17] MEDS: Chlorhexidine Rinse 15 ML MOUTHWASH MM SCH ×2 (08:55→20:00)
[2021-10-17] MEDS: Vitamin B Complex/Vit C/Vit E 1 EACH TABLET PO SCH (08:55)
[2021-10-17] MEDS: Insulin LISPRO 300 UNITS/3 ML VIAL SUBQ SCH ×3 (08:58→16:49)
[2021-10-17] MEDS: Azithromycin 500 MG in 0.9 % Sodium Chloride 250 ML IVPB SCH (13:52)
[2021-10-17] MEDS: traZODone 50 MG TABLET PO PRN (22:31)
[2021-10-18 03:07] LABS: Hematocrit 32.3 % (37.5-50.1); Hemoglobin 10.1 g/dL (12.9-16.9); Mean Corpuscular HGB Conc 31.3 g/dL (31.6-35.5); Mean Corpuscular Hemoglobin 26.2 pg (28.0-33.3); Mean Corpuscular Volume 83.9 fL (83.0-100.0); Mean Platelet Volume 9.1 fL (9.4-12.4); Platelet Count 437 K/mcL (140-400); Red Blood Count 3.85 M/mcL (4.19-5.50); White Blood Count 9.3 K/mcL (4.3-11.1)
[2021-10-18] MEDS: Ipratropium/Albuterol Neb 3 ML IH SCH ×3 (03:31→15:37)
[2021-10-18 03:33] LABS: BUN/Creatinine Ratio 22 (6-26); Blood Urea Nitrogen 14 mg/dL (8-23); Calcium 9.3 mg/dL (8.6-10.3); Carbon Dioxide 26 mEq/L (23-29); Chloride 101 mEq/L (98-107); Glucose 241 mg/dL (70-105); Osmolality,Calculated 284 (280-300); Potassium 4.6 mEq/L (3.5-5.1); Sodium 133 mEq/L (136-145); eGFR For African Americans > 60 (> 60); eGFR For Non-African Americans > 60 (> 60)
[2021-10-18] MEDS: Nicotine 21 MG PATCH.TD24 TD SCH (03:35)
[2021-10-18] MEDS: *HR* Heparin 5,000 UNIT/ML VIAL SQ SCH (04:09)
[2021-10-18] MEDS: Thiamine (B-1) 100 MG TABLET PO SCH (08:06)
[2021-10-18] MEDS: Chlorhexidine Rinse 15 ML MOUTHWASH MM SCH (08:06)
[2021-10-18] MEDS: cefTRIAXone 1,000 MG in 0.9 % Sodium Chloride Mini Bag 100 ML IVPB SCH (08:06)
[2021-10-18] MEDS: *HR* Buprenorphine HCl 8 MG TAB.SUBL SL SCH (08:07)
[2021-10-18] MEDS: predniSONE 20 MG TABLET PO SCH (08:07)
[2021-10-18] MEDS: Vitamin B Complex/Vit C/Vit E 1 EACH TABLET PO SCH (08:07)
[2021-10-18] MEDS: Lactobacillus 1 EACH CAP.SPRINK PO SCH (08:07)
[2021-10-18] MEDS: Folic Acid 1 MG TABLET PO SCH (08:07)
[2021-10-18] MEDS: Insulin LISPRO 300 UNITS/3 ML VIAL SUBQ SCH ×2 (08:12→12:16)
[2021-10-18 08:31] LABS: Mycoplasma pneumoniae IgG 0.33 U/L (<=0.09)
[2021-10-18] MEDS ORDERED: amLODIPine 5 MG TABLET PO SCH (09:00)
[2021-10-18] MEDS: Budesonide/Formoterol 160/4.5 1 PUFF INH IH SCH (09:58)
[2021-10-18 10:02] VITALS: O2SAT 95
[2021-10-18 10:46] VITALS: BP 139/68; PULSE 83; TEMP 97.7
[2021-10-18] MEDS ORDERED: FLU Vac QV 21-22 (6Month+)/PF 0.5 ML SYRINGE IM ONE (11:34)
[2021-10-18] MEDS ORDERED: Moderna Covid-19 Vaccine 100MCG/0.5mL IM ONE (11:38)
== END 2021-10-18 17:31 | disposition home health service (06) | DRG 871 ==
LOC: ICNU 21:39 → EMEROOARM 21:39 → OBSVTOIN 10-14 02:33 → SUATTDRO 10-14 02:33 → ICNU 10-14 04:30 → 3ANU 10-14 23:16
PROVIDERS: ADMIT Internal Medicine; ATTEND Registered Nurse